=== PATIENT | male | born 1950 | race Caucasian/White ===

== ENCOUNTER 2023-06-25 12:27 | Outpatient (AMB) | payer MEDICARE, SELFPAY ==
[2023-06-25 15:25] VITALS: BP 230/130; PULSE 95; TEMP 36.7; O2SAT 89
--- NOTE | 2023-06-25 15:25 | MHC.OFFWIV ---
Intake Vital Signs 06/25/23 15:25 Height 5 ft 11 in BP 230/130 H Blood Pressure Location Lt brachial Position Sitting Pulse 95 Pulse Source Pulse Oximeter Temp 98.1 F Temp Source Oral Pulse Oximetry (%) 89 L Oxygen Delivery Method Room Air Intake Visit Reasons: EST/congestion([phone]) Intake Note: pt is here for c.o cough, congestion, sinus, headache Patient Tobacco Use Status: Never used Tobacco Allergies No Known Allergies Allergy (Verified 06/25/23 16:18) Medication List - Last Reconciled 06/25/23 by Dima Singh MD albuterol sulfate 90 mcg/actuation inhalation Do you need a note to return to daycare/school/sports/work: No HPI EST/congestion([phone]) HPI Details 73-year-old male presents to the office for a sick visit. Patient is presenting to the office with history of shortness of breath and nonproductive cough. cough symptom has been present for the past 4 weeks. However his shortness of breath has worsened in the last 3 days. Walking from the car to the examining room made a very short of breath. Patient is a 2 pack smoker and quit 4 weeks ago. PFSH Social History Patient Tobacco Use Status: Never used Tobacco Physical Exam Vital Signs: Last Vital Signs Temp 98.1 F 06/25/23 15:25 Pulse 95 06/25/23 15:25 BP 230/130 H 06/25/23 15:25 Pulse Ox 89 L 06/25/23 15:25 Oxygen Delivery Method Room Air 06/25/23 15:25 Const General: cooperative and healthy appearing Nutritional Appearance: well nourished Orientation/consciousness: patient oriented x3 Limitations: no limitations HEENT Head: Yes normal to inspection Eyes General: appearance normal, both eyes and all related structures Neck Neck: Yes normal visual inspection Chest Chest palpation & inspection: normal palpation of entire chest wall Resp Other: Diminished breath sounds at the base. Effort & Inspection: normal respiratory effort Cardio Jugular venous distension: no JVD Palpation: normal PMI Rate: tachycardic Rhythm: regular rhythm Heart sounds: S1 normal heart sound present and S2 normal heart sound present Neuro General: patient oriented x3 Office Procedures EKG Details: Junctional tachycardia. 42404-[id number], Complete Assessment & Plan Assessment & Plan (1) Shortness of breath: Code(s): R06.02 - Shortness of breath Plan: Blood pressure on arrival was 230/130. After patient was given 2 L of oxygen per minute his blood pressure came down to 200 over 100. EKG shows junctional tachycardia with no prior EKG to compare. Chest x-ray shows a large infiltrate on the right lung. Pulse ox without 89% at room air. Patient was advised to proceed to the emergency room via ambulance. Initially he refused. Subsequently, he agreed and patient was sent to the emergency room. Triage nurse notified. Orders: Orders AMB EKG-In Office Today R07.9 - Chest pain, unspecified XR chest 2V Today R05.9 - Cough, unspecified Coding Level of Care Code Est Pt Level 4 (75222) Diagnoses Shortness of breath R06.02 CPT Codes EKG - CPT: 39700-[id number], Complete ([id number])
== END 2023-06-25 16:30 | disposition home or self-care (01) ==
PROVIDERS: Visit Provider Internal Medicine
DX: R06.02 Shortness of breath (principal)
CPT/HCPCS: 93000; 99214

== ENCOUNTER 2023-06-25 15:47 | Outpatient (REF) | payer MEDICARE, SELFPAY ==
--- NOTE | ~2023-06-25 | XR_ITS ---
EXAMINATION: XR CHEST CLINICAL INFORMATION: Cough. COMPARISON: None available. TECHNIQUE: 2 views of the chest were obtained. FINDINGS: Lungs are mildly hyperexpanded. The bronchial malave appear to be diffusely thickened. There are small ill-defined nodular opacities in the right lung as well as patchy airspace opacity in the posterolateral right lower lobe. Findings could represent bronchiolitis and pneumonia. A few subpleural septal lines are present in the periphery of the right lower lobe. There appears to be a very small metallic density within the inferior lingula. On the frontal view, the lateral costophrenic sulcus is slightly blunted, although no pleural effusion is seen on the lateral view. Cardiac silhouette is normal in size. The hilar contours are normal. No acute osseous abnormality. Skeletal hyperostosis with presence of bulky flowing anterior ligament ossification of the thoracic spine. XR/XR chest 2V IMPRESSION: Abnormal chest radiograph. Findings could represent bronchitis, bronchiolitis and right lower lobe pneumonia.
== END 2023-06-25 15:48 | disposition home or self-care (01) ==
LOC: HO.HMGCX 15:47
PROVIDERS: Visit Provider Internal Medicine
DX: R05.9 Cough, unspecified (principal)
CPT/HCPCS: 71046

== ENCOUNTER 2023-06-25 16:56 | Inpatient (IN) | payer MEDICARE, SELFPAY ==
--- NOTE | ~2023-06-25 | XR_ITS ---
EXAMINATION: XR CHEST CLINICAL INFORMATION: Shortness of breath COMPARISON: Chest radiograph earlier today at 4:10 PM and chest radiograph 12/29/2007 (report only) TECHNIQUE: Frontal view of the chest was obtained. FINDINGS: Lungs are hyperinflated consistent with COPD. Again seen are increased reticular nodular markings throughout the lungs. Focal infiltrate is present at the right lung base similar to prior. I suspect there may be a small right subpulmonic effusion as the configuration of the diaphragm has changed with its apex slightly more lateral. XR/XR chest 1V IMPRESSION: COPD with diffuse reticular nodular markings. Right lower lobe infiltrate. Question of small right subpulmonic effusion. Increased lung markings could represent atypical appearance of CHF with underlying COPD. Please correlate clinically.
--- NOTE | 2023-06-25 17:15 | ECG_ITS ---
Test Reason : CHEST PAIN Blood Pressure : / mmHG Vent. Rate : 098 BPM Atrial Rate : 098 BPM P-R Int : 154 ms QRS Dur : 080 ms QT Int : 344 ms P-R-T Axes : 088 067 082 degrees QTc Int : 439 ms Normal sinus rhythm Septal infarct , age undetermined Abnormal ECG No previous ECGs available Referred By: Ashleigh Bonner Electronically Signed By:Neville Keyes
--- NOTE | 2023-06-25 17:18 | ED.SOB ---
HPI - SOB/Dyspnea General Chief Complaint: Upper Respiratory Symptoms Stated Complaint: Breathing problems, hypertensive,expiratory wheeze History of Present Illness HPI Narrative: Patient is 73 years old with a long history of smoking. Baseline not on oxygen. Have not seen a doctor in the last 10 years. EMS noted patient to have a very high blood pressure of 240/140. Also having coughing congestion upper respiratory symptoms O2 sat in the 80s. Was given some nitroglycerin patient's blood pressure improved given a neb treatment with moderate results. Patient is sent in for further evaluation he is vaccinated for COVID x3 did not get his flu shot this year. Patient is from home. The symptoms been ongoing for the last few months. Getting much worse today. To a point that he cannot work as why he came in. Related Data Home Medications Medication Instructions Recorded Confirmed albuterol sulfate 90 mcg/actuation inhalation 06/25/23 06/25/23 aerosol inhaler Allergies Allergy/AdvReac Type Severity Reaction Status Date / Time No Known Allergies Allergy Verified 06/25/23 16:18 Review of Systems Review of Systems: Positive coughing congestion upper respiratory symptoms positive shortness of breath Yes all other systems are reviewed and are negative [facility] Past Medical History Attestation statement: The following information was validated with the patient. Source: unable to obtain Onset Date is defined in the Problem List Problems that require an onset date and time if occurred within 24 hrs of arrival to the ED Aortic Dissection and Rupture; Neurologic impairment; Cardiopulmonary Arrest; Endotracheal Intubation; Insertion or Replacement of Mechanical Circulatory Assist Device Social History Social History Patient Tobacco Use Status: Never used Tobacco Advance Directives: No Advance Directives Information Provided: No Physical Exam Vital Signs: Vital Signs: Last Vital Signs Temp 97.8 F 06/25/23 17:20 Pulse 91 06/25/23 19:28 Resp 24 H 06/25/23 19:28 BP 151/88 H 06/25/23 19:28 Pulse Ox 95 06/25/23 19:28 O2 Del Method Nasal Cannula 06/25/23 19:28 O2 Flow Rate 4 06/25/23 19:28 BMI result Body Mass Index 24.3 Appearance: Alert. Oriented X3. No acute distress. Eyes: Pupils equal, round and reactive to light. ENT: Pharynx normal. Neck: Normal inspection. Neck supple. No lymph nodes noted. No crepitus CVS: Normal heart rate and rhythm. Pulses normal. Normal S1 and S2 Respiratory: Diminished breath sounds bilaterally Abdomen: Soft and nontender. No rigidity. No distention. good BS x4 Skin: Skin warm and dry. Normal skin color. Normal skin turgor. Extremities: No lower extremity edema. Neurovascular intact to all extremities. No Lacerations. No Rash Neuro: Oriented X 3. No motor deficit. No sensory deficit. Moving all extermities. No slurred speech Medications Administered Discontinued Medications Generic Name Dose Route Start Last Admin Trade Name Freq PRN Reason Stop Dose Admin Albuterol Sulfate 5 mg/ 7.5 mg 06/25/23 17:42 06/25/23 17:43 Albuterol Sulfate 2.5 mg INHALE 06/25/23 17:43 Not Given ONCE ONE Albuterol Sulfate 12 puff 06/25/23 17:44 06/25/23 17:45 Albuterol Sulfate 90 Mcg 8 Gm Inhaler INHALE 06/25/23 17:45 12 puff ONCE ONE Administration Amlodipine Besylate 5 mg 06/25/23 17:30 06/25/23 18:51 Amlodipine Besylate 5 Mg Tablet PO 06/25/23 17:31 5 mg ONCE ONE Administration Protocol Methylprednisolone Sodium Succinate 125 mg 06/25/23 17:14 06/25/23 18:51 Methylprednisolone Sod Succ 125 Mg/2 Ml Vial IVPUSH 06/25/23 17:15 125 mg ONCE ONE Administration Medical Decision Making Medical Decision Making MDM Narrative: Positive coughing congestion upper respiratory symptoms that is been ongoing for weeks but much worse in the last 24 hours. Patient denies any chest pain. My interpretation of patient's chest x-ray showed a right lower lobe infiltrate. Patient's lactate is normal. There is no evidence for severe sepsis. He does have hypoxia along with having an elevated blood pressure on arrival. A small dose of amlodipine was given. Patient given nebulized treatment along with steroids for likely COPD exacerbation. Patient to be admitted for further evaluation. Given multiple albuterol treatment here Differential Diagnosis Differential Diagnoses: The differential diagnosis associated with the presentation includes Pneumonia, flu, RSV, COVID, COPD, hypertension Admission/Observation Consideration of admission/observation: Escalation of care including admission/observation considered Patient will need to be admitted for hypoxia associated with COPD exacerbation pneumonia Consult Healthcare Provider Management of the patient was discussed with: Hospitalist Lab Data MDM Lab Attestation statement: I reviewed the patient's lab results. 06/25/23 18:36 06/25/23 18:36 Labs: Lab Results 06/25/23 Range/Units 18:36 WBC 12.9 H (4.8-10.8) X10*3/uL RBC 4.04 L (4.60-5.80) X10*6/uL Hgb 11.9 L (14.0-18.0) g/dl Hct 35.6 L (42.0-52.0) % MCV 88.1 (80.0-98.0) fL MCH 29.5 (27.0-33.0) pg MCHC 33.4 (31.0-36.0) g/dl RDW 12.7 (11.0-16.0) % Plt Count 422 H (160-400) X10*3/uL MPV 9.2 L (9.4-12.4) fL Immature Gran % (Auto) 0.7 H (0.0-0.4) % Neut % (Auto) 81.3 H (45-73) % Lymph % (Auto) 7.8 L (20-40) % [place] % (Auto) 9.5 (2-11) % Eos % (Auto) 0.2 (0-4) % Baso % (Auto) 0.5 (0-2) % Lymph # (Auto) 1.0 L (1.2-4.9) X10*3/uL [place] # (Auto) 1.2 (0.1-1.2) X10*3/uL Eos # (Auto) 0.0 (0.0-0.4) X10*3/uL Baso # (Auto) 0.1 (0.0-0.2) X10*3/uL Abs Immat Gran (auto) 0.09 H (0.00-0.03) X10*3/uL Absolute Neuts (auto) 10.5 H (2.0-8.3) x10*3/uL Absolute Nucleated RBC 0.000 (0.0-0.012) X10*3/uL Nucleated RBC % (auto) 0.0 (0.0-0.2) /100WBC Sodium 143 (135-145) mmol/L Potassium 3.1 L (3.3-5.1) mmol/L Chloride 100 (96-108) mmol/L Carbon Dioxide 32 H (22-29) mmol/L Anion Gap 14 (12-20) BUN 7 L (9-16) mg/dL Creatinine 0.68 (0.5-1.4) mg/dL Estim Creat Clear Calc 96.3 Estimated GFR > 60 Random Glucose 126 H (60-115) mg/dL Lactic Acid 1.7 (0.5-2.0) mmol/L Calcium 9.4 (8.4-10.2) mg/dL Troponin I High Sens 8.0 (<3.5-35.0) ng/L B-Natriuretic Peptide 64 (<100) pg/mL Influenza Type A (PCR) NEGATIVE (Negative) Influenza Type B (PCR) NEGATIVE (Negative) RSV RNA Qual (PCR) NEGATIVE (Negative) SARS-CoV-2 RNA (RT-PCR) NEGATIVE (Negative) Independent Interpretation I performed an independent interpretation of an: EKG (My interpretation of patient's EKG showed a sinus rhythm heart rate is 100 [place] QRS QTC within normal limits is no acute ST segment elevation) Independent Historian Clinical information obtained from an independent historian. History obtained from or confirmed by: EMS Tests considered The following testing was considered but not selected: No need for CTA there is an obvious reason for patient's hypoxia. [place] the risk of PE is low Chronic Conditions COPD, hypertension Social Determinants Long history of smoking Critical Care Time Critical Care Time Critical Care Time: Yes Total Critical Care Time: 40 Attestation: I have personally provided 40 minutes of critical care time exclusive of time spent on separately billable procedures. Time includes review of lab data, radiology results, discussion with consultants, and monitoring for potential decompensation. Interventions were performed as documented above Discharge Plan Discharge Clinical Impression: Pneumonia, COPD (chronic obstructive pulmonary disease) Prescriptions: No Action albuterol sulfate 90 mcg/actuation HFA aerosol inhaler inhalation
[2023-06-25 17:20] VITALS: BP 217/110; PULSE 90; RESP 18; TEMP 36.6; O2SAT 96
[2023-06-25 17:45] VITALS: BP 230/130; PULSE 92; PULSE 99; RESP 16; O2SAT 82; O2SAT 93; BMI 24.3
[2023-06-25] MEDS: Albuterol Sulfate 90 MCG 8 GM INHALER 12 PUFF INHALE (17:45)
[2023-06-25 18:37] LABS: MANUAL DIFF FLAG NO
[2023-06-25 18:39] LABS: Basophils Absolute Auto 0.1 X10*3/uL (0.0-0.2); Basophils Percent Auto 0.5 % (0-2); Eosinophils Percent Auto 0.2 % (0-4); Hematocrit 35.6 % (42.0-52.0); Hemoglobin 11.9 g/dl (14.0-18.0); Imm Gran Abs Auto 0.09 X10*3/uL (0.00-0.03); Imm Gran Pct Auto 0.7 % (0.0-0.4); Lymphocytes Percent Auto 7.8 % (20-40); Mean Corpuscular HGB Conc 33.4 g/dl (31.0-36.0); Mean Corpuscular Hemoglobin 29.5 pg (27.0-33.0); Mean Corpuscular Volume 88.1 fL (80.0-98.0); Mean Platelet Volume 9.2 fL (9.4-12.4); Monocytes Absolute Auto 1.2 X10*3/uL (0.1-1.2); Monocytes Percent Auto 9.5 % (2-11); Neutrophils Absolute Auto 10.5 x10*3/uL (2.0-8.3); Neutrophils Percent Auto 81.3 % (45-73); Platelet Count 422 X10*3/uL (160-400); Red Blood Count 4.04 X10*6/uL (4.60-5.80); Red Cell Distribution Width 12.7 % (11.0-16.0); White Blood Count 12.9 X10*3/uL (4.8-10.8)
[2023-06-25 18:48] LABS: Lactic Acid 1.7 mmol/L (0.5-2.0)
[2023-06-25 18:51] LABS: Anion Gap 14 (12-20); Blood Urea Nitrogen 7 mg/dL (9-16); Calcium 9.4 mg/dL (8.4-10.2); Carbon Dioxide 32 mmol/L (22-29); Chloride 100 mmol/L (96-108); Creatinine Clr Calc Pharmacy 96.3; Estimated Glomerular Filt Rate > 60; Glucose Random 126 mg/dL (60-115); Potassium 3.1 mmol/L (3.3-5.1); Sodium 143 mmol/L (135-145)
[2023-06-25] MEDS: amLODIPine Besylate 5 MG TABLET PO (18:51)
[2023-06-25] MEDS: methylPREDNISolone Sod Succ 125 MG/2 ML VIAL IVPUSH (18:51)
[2023-06-25 18:56] VITALS: BP 175/96; PULSE 96; RESP 20
[2023-06-25 18:58] LABS: B Type Natriuretic Peptide 64 pg/mL (<100)
[2023-06-25 19:28] VITALS: BP 151/88; PULSE 91; RESP 24; O2SAT 95
[2023-06-25 19:28] LABS: Influenza A PCR NEGATIVE (Negative); Influenza B PCR NEGATIVE (Negative); Resp Syncy Virus RNA Qual PCR NEGATIVE (Negative); SARS COV2 PCR INHOUSE NEGATIVE (Negative)
--- NOTE | 2023-06-25 19:42 | PM.IMHP ---
History of Present Illness Date of Service: 06/25/23 Chief Complaint: Dyspnea This is a 73-year-old male with pertinent history of essential hypertension, COPD not on home oxygen who presents to the emergency department for evaluation of dyspnea and cough. Patient states he has been having generalized body ache and flu-like symptoms for the last 4 weeks. Initially patient was having nonproductive cough but on the day of presentation, he started having productive cough. Also had associated wheezing and dyspnea which was worse with ambulation. No fevers or chills. Patient states that he has not seen a doctor in 10 years. He has quit smoking tobacco and only uses an inhaler as needed for COPD. No chest discomfort, palpitations, headache, fever, chills, orthopnea, PND, abdominal pain, changes in urinary or bowel habits. His blood pressure was found to be elevated upon EMS arrival and was given nitroglycerin. In the emergency department, patient requiring supplemental oxygen and imaging concerning for right-sided infiltrate. Review of Systems Constitutional: Constitutional: Reports fatigue, Reports lethargy and Reports weakness Cardiovascular: Cardiovascular: Reports dyspnea on exertion Respiratory: Respiratory: Reports cough, Reports dyspnea on exertion and Reports wheezing Gastrointestinal: Gastrointestinal: Reports no additional gastrointestinal complaints Genitourinary: Genitourinary: Reports no additional male genitourinary complaints Neurologic: Reports weakness Endocrine: Endocrine: Reports fatigue Allergic/Immunologic: Allergic/Immunologic: Reports wheezing [facility] Medical History Former tobacco use COPD (chronic obstructive pulmonary disease) Essential hypertension Pertinent family history: No family history of early CAD Social History Patient Tobacco Use Status: Never used Tobacco Advance Directives: No Advance Directives Information Provided: No Meds Allergies Allergy/AdvReac Type Severity Reaction Status Date / Time No Known Allergies Allergy Verified 06/25/23 16:18 Active Medications: Current Medications Acetaminophen (Acetaminophen 325 Mg Tablet) 650 mg PO Q6H PRN PRN Reason: Pain, Mild (Pain Scale 1-3) Enoxaparin Sodium (Enoxaparin Sodium 40 Mg/0.4 Ml Syringe) 40 mg SUBCUT Q24H HOME Ceftriaxone Sodium 1 gm/ (Sodium Chloride) 50 mls @ 100 mls/hr IV ONCE ONE Stop: 06/25/23 20:01 Melatonin (Melatonin 3 Mg Tablet) 6 mg PO BEDTIME PRN PRN Reason: Insomnia Ondansetron HCl (Ondansetron Hcl 4 Mg/2 Ml Vial) 4 mg IVPUSH Q8H PRN PRN Reason: Nausea and Vomiting Sodium Chloride (0.9 % Sodium Chloride Flush 3 Ml Syringe) 3 ml IVFLUSH QSHIFT [facility] Home Medications Medication Instructions Recorded Confirmed Last Taken Type albuterol sulfate 90 mcg/actuation 2 puff inhalation Q4H 06/25/23 06/25/23 Unknown History aerosol inhaler ascorbic acid (vitamin C) 500 mg 500 mg PO DAILY 06/25/23 06/25/23 Unknown History tablet aspirin 81 mg chewable tablet 81 mg PO DAILY 06/25/23 06/25/23 Unknown History Physical Exam Vital Signs and Narrative: Vital Signs: Last Vital Signs Temp 97.8 F 06/25/23 17:20 Pulse 91 06/25/23 19:28 Resp 24 H 06/25/23 19:28 BP 151/88 H 06/25/23 19:28 Pulse Ox 95 06/25/23 19:28 O2 Del Method Nasal Cannula 06/25/23 19:28 O2 Flow Rate 4 06/25/23 19:28 BMI result Body Mass Index 24.3 Middle-aged male lying in bed in mild distress on supplemental oxygen Neck supple, no JVD Regular rate and rhythm, S1-S2 heard Bilateral wheezing present Abdomen soft nontender, no guarding, no rigidity Patient is awake, alert and oriented to self, place, time and person ; no focal motor deficit Psych: Normal mood No pedal edema Results Labs 06/25/23 18:36 06/25/23 18:36 Labs: Laboratory Results - last 24 hr 06/25/23 18:36 MCV 88.1 MCH 29.5 MCHC 33.4 RDW 12.7 Plt Count 422 H MPV 9.2 L Immature Gran % (Auto) 0.7 H Neut % (Auto) 81.3 H Lymph % (Auto) 7.8 L [place] % (Auto) 9.5 Eos % (Auto) 0.2 Baso % (Auto) 0.5 Lymph # (Auto) 1.0 L [place] # (Auto) 1.2 Eos # (Auto) 0.0 Baso # (Auto) 0.1 Abs Immat Gran (auto) 0.09 H Absolute Neuts (auto) 10.5 H Absolute Nucleated RBC 0.000 Nucleated RBC % (auto) 0.0 Anion Gap 14 Estim Creat Clear Calc 96.3 Estimated GFR > 60 Random Glucose 126 H Lactic Acid 1.7 Calcium 9.4 B-Natriuretic Peptide 64 Influenza Type A (PCR) NEGATIVE Influenza Type B (PCR) NEGATIVE RSV RNA Qual (PCR) NEGATIVE SARS-CoV-2 RNA (RT-PCR) NEGATIVE Assessment and Plan (1) Acute hypoxemic respiratory failure: Status: Acute Plan This is a 73-year-old male with pertinent history of essential hypertension, COPD not on home oxygen who presents to the emergency department for evaluation of dyspnea and cough. #. Acute hypoxemic respiratory failure due to COPD exacerbation in a patient with right-sided pneumonia. Will admit patient with supplemental oxygen. Initiating empiric IV antibiotics. Initiating systemic steroids. Scheduled and p.r.n. DuoNebs. Maintain oxygen saturation and wean as tolerated. Sputum culture pending #. Sepsis in the setting of above: Resuscitated with IV crystalloids. Lactic acid and blood culture obtained #. Hypertensive emergency/urgency: Initiating p.o. antihypertensives. Blood pressure appropriately lowered in the ER. Optimize prior to discharge. #. Hypokalemia: Repleted DVT prophylaxis: Lovenox Full code Admit as inpatient and will require two night minimum hospital stay for supplemental oxygen, IV antibiotics (as above), which is not possible in a lesser acute setting. Quality Stroke Does the patient have a stroke diagnosis?: No VTE Prior VTE?: No VTE Risk Level:: Medical - moderate - high VTE Device Contraindication: Treatment Not Indicated VTE Drug Contraindication: N/A - Med Ordered
--- NOTE | 2023-06-25 19:51 | PHA.MEDREC ---
Pharmacy Consult ? Medication Reconciliation Pharmacy has completed the medication reconciliation. Patient reported medications. Mary Bueno, KaitD
[2023-06-25] MEDS: Azithromycin 500 MG TABLET PO (20:04)
[2023-06-25] MEDS: Potassium Chloride Packet 20 MEQ PACKET 40 MEQ PO (20:04)
[2023-06-25] MEDS: cefTRIAXone sodium 1 GM in 0.9 % Sodium Chloride 50 ML IV (20:05)
[2023-06-25] MEDS: Enoxaparin Sodium 40 MG/0.4 ML SYRINGE SUBCUT (20:05)
[2023-06-25 23:55] VITALS: BP 168/90; PULSE 88; RESP 16; O2SAT 98
[2023-06-26] VITALS (10 sets, daily range): BP systolic 139–183; BP diastolic 58–100; PULSE 70–85; RESP 16–20; TEMP 35.9–37; O2SAT 94–98; BMI 24.6
[2023-06-26] MEDS: 0.9 % Sodium Chloride Flush 3 ML SYRINGE IVFLUSH ×4 (00:02→19:51)
[2023-06-26] MEDS: Acetaminophen 325 MG TABLET 650 MG PO (00:02)
[2023-06-26] MEDS: Melatonin 3 MG TABLET 6 MG PO (00:03)
--- NOTE | 2023-06-26 00:04 | PC.NURSE ---
Pt with complaints of a mild headache. Pt medicated per AUG with tylenol. Also states he cannot sleep at this time. Medicated per AUG with melatonin.
[2023-06-26 00:08] LABS: Appearance Urine Clear; Color Urine Yellow; Glucose Urine UA Negative (Negative); Leukocyte Esterase Urine Negative (Negative); Nitrite Urine Negative (Negative); PH 7.5 (5.0-9.0); UMIC TRIGGER UACC YES; Urine Blood Negative (Negative); Urine Ketones Trace mg/dL (Negative); Urine Protein 30 (1+) mg/dL (Neg-Trace)
[2023-06-26 00:13] LABS: Bacteria Urine None Seen (None Seen); Hyaline Casts Urine 0-2 /LPF (0-2); RBC Urine 0-2 /HPF (0-2); Squamous Epithelial Cell Urine 0-2 /HPF (0-2); WBC Urine 0-5 /HPF (0-5)
[2023-06-26 06:45] LABS: Basophils Percent Auto 0.4 % (0-2); Hematocrit 36.9 % (42.0-52.0); Hemoglobin 12.4 g/dl (14.0-18.0); Imm Gran Abs Auto 0.07 X10*3/uL (0.00-0.03); Imm Gran Pct Auto 0.6 % (0.0-0.4); Lymphocytes Absolute Auto 0.6 X10*3/uL (1.2-4.9); MANUAL DIFF FLAG SCAN; Mean Corpuscular HGB Conc 33.6 g/dl (31.0-36.0); Mean Corpuscular Hemoglobin 29.8 pg (27.0-33.0); Mean Corpuscular Volume 88.7 fL (80.0-98.0); Mean Platelet Volume 9.5 fL (9.4-12.4); Monocytes Absolute Auto 0.2 X10*3/uL (0.1-1.2); Monocytes Percent Auto 1.6 % (2-11); Neutrophils Absolute Auto 10.2 x10*3/uL (2.0-8.3); Neutrophils Percent Auto 92.4 % (45-73); Platelet Count 438 X10*3/uL (160-400); Red Blood Count 4.16 X10*6/uL (4.60-5.80); Red Cell Distribution Width 12.6 % (11.0-16.0); SCAN SMEAR FLAG 1; White Blood Count 11.1 X10*3/uL (4.8-10.8)
[2023-06-26 06:58] LABS: Anion Gap 12 (12-20); Blood Urea Nitrogen 10 mg/dL (9-16); Calcium 9.3 mg/dL (8.4-10.2); Carbon Dioxide 32 mmol/L (22-29); Chloride 101 mmol/L (96-108); Creatinine Clr Calc Pharmacy 93.6; Estimated Glomerular Filt Rate > 60; Glucose Random 147 mg/dL (60-115); Potassium 3.7 mmol/L (3.3-5.1); Sodium 141 mmol/L (135-145)
[2023-06-26] MEDS: lisinopriL 5 MG TABLET PO (07:36)
[2023-06-26] MEDS: Aspirin 81 MG TAB.CHEW PO (07:36)
[2023-06-26] MEDS: Ascorbic Acid 500 MG TABLET PO (07:36)
[2023-06-26] MEDS: amLODIPine Besylate 5 MG TABLET PO (07:36)
[2023-06-26 08:13] LABS: SLIDE REVIEW VERIFIED
[2023-06-26] MEDS: Albuterol/Iprat 2.5/0.5MG 3 ML AMPUL.NEB INHALE ×3 (08:25→19:27)
[2023-06-26] MEDS: methylPREDNISolone Sod Succ 40 MG/ML VIAL IVPUSH (08:27)
--- NOTE | 2023-06-26 10:09 | HO.PM.IMPN ---
Subjective Subjective Date of Service: 06/26/23 Interval History: sob still present but improved Physical Exam Vital Signs: Vital Signs: Last Vital Signs Temp 97.6 F 06/26/23 07:46 Pulse 74 06/26/23 08:26 Resp 18 06/26/23 08:26 BP 180/100 H 06/26/23 07:46 Pulse Ox 95 06/26/23 07:46 O2 Del Method Nasal Cannula 06/26/23 07:46 O2 Flow Rate 2 06/26/23 07:46 BMI result Body Mass Index 24.6 General: AO X 3, no acute distress Resp: wheezing bilateral, no accessory muscles used CVS: S1,S2,RRR GI: soft, non tender, non distended Neuro: motor grossly intact, alert Psych: appropriate affect, appropriate insight Objective Data Active Medications Acetaminophen (Acetaminophen 325 Mg Tablet) 650 mg PO Q6H PRN PRN Reason: Pain, Mild (Pain Scale 1-3) Last Admin: 06/26/23 00:02 Dose: 650 mg Documented By: MARY Albuterol/Ipratropium (Albuterol/Iprat 2.5/0.5mg 3 Ml Ampul.Neb) 3 ml INHALE RQ4H WHILE AWAKE [facility] Last Admin: 06/26/23 08:25 Dose: 3 ml Documented By: BRUCE Albuterol/Ipratropium (Albuterol/Iprat 2.5/0.5mg 3 Ml Ampul.Neb) 3 ml INHALE Q4H PRN PRN Reason: Wheezing Amlodipine Besylate (Amlodipine Besylate 5 Mg Tablet) 5 mg PO DAILY [facility]; Protocol Last Admin: 06/26/23 07:36 Dose: 5 mg Documented By: FRANNY Ascorbic Acid (Ascorbic Acid 500 Mg Tablet) 500 mg PO DAILY [facility] Last Admin: 06/26/23 07:36 Dose: 500 mg Documented By: FRANNY Aspirin (Aspirin 81 Mg Tab.Chew) 81 mg PO DAILY [facility] Last Admin: 06/26/23 07:36 Dose: 81 mg Documented By: FRANNY Enoxaparin Sodium (Enoxaparin Sodium 40 Mg/0.4 Ml Syringe) 40 mg SUBCUT Q24H [facility] Last Admin: 06/25/23 20:05 Dose: 40 mg Documented By: MARY Ceftriaxone Sodium 1 gm/ (Sodium Chloride) 50 mls @ 100 mls/hr IV Q24H [facility] Azithromycin 500 mg/ Sodium (Chloride) 250 mls @ 125 mls/hr IV Q24H [facility] Lisinopril (Lisinopril 5 Mg Tablet) 5 mg PO DAILY [facility]; Protocol Last Admin: 06/26/23 07:36 Dose: 5 mg Documented By: FRANNY Melatonin (Melatonin 3 Mg Tablet) 6 mg PO BEDTIME PRN PRN Reason: Insomnia Last Admin: 06/26/23 00:03 Dose: 6 mg Documented By: MARY Methylprednisolone Sodium Succinate (Methylprednisolone Sod Succ 40 Mg/Ml Vial) 40 mg IVPUSH Q12H [facility] Last Admin: 06/26/23 08:27 Dose: 40 mg Documented By: FRANNY Ondansetron HCl (Ondansetron Hcl 4 Mg/2 Ml Vial) 4 mg IVPUSH Q8H PRN PRN Reason: Nausea and Vomiting Sodium Chloride (0.9 % Sodium Chloride Flush 3 Ml Syringe) 3 ml IVFLUSH QSHIFT [facility] Last Admin: 06/26/23 08:27 Dose: 3 ml Documented By: FRANNY Labs 06/26/23 05:59 06/26/23 05:59 Labs: Laboratory Results - last 24 hr 06/25/23 06/25/23 06/26/23 18:36 23:57 05:59 MCV 88.1 88.7 MCH 29.5 29.8 MCHC 33.4 33.6 RDW 12.7 12.6 Plt Count 422 H 438 H MPV 9.2 L 9.5 Immature Gran % (Auto) 0.7 H 0.6 H Neut % (Auto) 81.3 H 92.4 H Lymph % (Auto) 7.8 L 5.0 L Barry % (Auto) 9.5 1.6 L Eos % (Auto) 0.2 0.0 Baso % (Auto) 0.5 0.4 Lymph # (Auto) 1.0 L 0.6 L Barry # (Auto) 1.2 0.2 Eos # (Auto) 0.0 0.0 Baso # (Auto) 0.1 0.0 Abs Immat Gran (auto) 0.09 H 0.07 H Absolute Neuts (auto) 10.5 H 10.2 H Absolute Nucleated RBC 0.000 0.000 Nucleated RBC % (auto) 0.0 0.0 Smear Tech's Comments VERIFIED Anion Gap 14 12 Estim Creat Clear Calc 96.3 93.6 Estimated GFR > 60 > 60 Random Glucose 126 H 147 H Lactic Acid 1.7 Calcium 9.4 9.3 B-Natriuretic Peptide 64 Urine Color Yellow Urine Appearance Clear Urine pH 7.5 Ur Specific Luana 1.010 Urine Protein 30 (1+) H Urine Glucose (UA) Negative Urine Ketones Trace Urine Blood Negative Urine Nitrite Negative Ur Leukocyte Esterase Negative Urine RBC 0-2 Urine WBC 0-5 Ur Squamous Epith Cells 0-2 Urine Bacteria None Seen Hyaline Casts 0-2 Influenza Type A (PCR) NEGATIVE Influenza Type B (PCR) NEGATIVE RSV RNA Qual (PCR) NEGATIVE SARS-CoV-2 RNA (RT-PCR) NEGATIVE Assessment and Plan (1) Acute hypoxemic respiratory failure: Status: Acute Plan 73M PMH htn, copd, presented wtih sob sepsis, acute hypoxic repsiratory failure due to copd with acute decompensation and pneumonia rocpehin, azithro steroids, nebs wean o2 as tolerated htn amldoipnie and lisinopril dvt prophylaxis - lovenox full code reason for continued hospitalization:sob, wheezing Quality Stroke Does the patient have a stroke diagnosis?: No VTE Prior VTE?: No VTE Risk Level:: Medical - moderate - high VTE Device Contraindication: Treatment Not Indicated VTE Drug Contraindication: N/A - Med Ordered
--- NOTE | 2023-06-26 10:56 | MHC.CM.PN ---
IMM DELIVERED PT LIVES ALONE AND IS EMPLOYED P/T. INDEPEND[employer] AT [employer]. NO HCP BUT WILL CONSIDER DOING IT. NO PCP [facility] PROVIDED. DP: HOME WITH NO SERVICES ANTICIPATED. PT MAY NEED SHUTTLE OR LYFT RIDE HOME. CM WILL CONTINUE TO FOLLOW FOR ANY CHANGE IN DC PLAN/NEEDS.
[2023-06-26] MEDS: cefTRIAXone sodium 1 GM in 0.9 % Sodium Chloride 50 ML IV (19:51)
[2023-06-27] VITALS (9 sets, daily range): BP systolic 121–159; BP diastolic 78–89; PULSE 67–85; RESP 16–18; TEMP 36.1–36.6; O2SAT 88–98
[2023-06-27 06:23] LABS: Hematocrit 35.7 % (42.0-52.0); Mean Corpuscular HGB Conc 33.6 g/dl (31.0-36.0); Mean Corpuscular Hemoglobin 29.8 pg (27.0-33.0); Mean Corpuscular Volume 88.6 fL (80.0-98.0); Mean Platelet Volume 9.3 fL (9.4-12.4); Platelet Count 472 X10*3/uL (160-400); Red Blood Count 4.03 X10*6/uL (4.60-5.80); Red Cell Distribution Width 12.6 % (11.0-16.0); White Blood Count 15.5 X10*3/uL (4.8-10.8)
[2023-06-27 06:24] LABS: Anion Gap 15 (12-20); Blood Urea Nitrogen 23 mg/dL (9-16); Calcium 9.3 mg/dL (8.4-10.2); Carbon Dioxide 33 mmol/L (22-29); Chloride 102 mmol/L (96-108); Creatinine Clr Calc Pharmacy 88.5; Estimated Glomerular Filt Rate > 60; Glucose Fasting 153 mg/dL (60-99); Potassium 3.8 mmol/L (3.3-5.1); Sodium 146 mmol/L (135-145)
--- NOTE | 2023-06-27 08:51 | HO.PM.IMPN ---
Subjective Subjective Date of Service: 06/27/23 Interval History: sob improved Physical Exam Vital Signs: Vital Signs: Last Vital Signs Temp 97.2 F 06/27/23 07:17 Pulse 67 06/27/23 07:47 Resp 16 06/27/23 07:47 BP 121/89 06/27/23 07:17 Pulse Ox 96 06/27/23 07:17 O2 Del Method Nasal Cannula 06/27/23 07:17 O2 Flow Rate 1 06/27/23 07:17 BMI result Body Mass Index 24.6 General: AO X 3, no acute distress Resp: wheezing bilateral, no accessory muscles used CVS: S1,S2,RRR GI: soft, non tender, non distended Neuro: motor grossly intact, alert Psych: appropriate affect, appropriate insight Objective Data Active Medications Acetaminophen (Acetaminophen 325 Mg Tablet) 650 mg PO Q6H PRN PRN Reason: Pain, Mild (Pain Scale 1-3) Last Admin: 06/26/23 00:02 Dose: 650 mg Documented By: MARY Albuterol/Ipratropium (Albuterol/Iprat 2.5/0.5mg 3 Ml Ampul.Neb) 3 ml INHALE RQ4H WHILE AWAKE [facility] Last Admin: 06/27/23 07:45 Dose: 3 ml Documented By: SHEELA Albuterol/Ipratropium (Albuterol/Iprat 2.5/0.5mg 3 Ml Ampul.Neb) 3 ml INHALE Q4H PRN PRN Reason: Wheezing Amlodipine Besylate (Amlodipine Besylate 5 Mg Tablet) 5 mg PO DAILY [facility]; Protocol Last Admin: 06/27/23 08:03 Dose: 5 mg Documented By: FRANNY Ascorbic Acid (Ascorbic Acid 500 Mg Tablet) 500 mg PO DAILY [facility] Last Admin: 06/27/23 08:03 Dose: 500 mg Documented By: FRANNY Enoxaparin Sodium (Enoxaparin Sodium 40 Mg/0.4 Ml Syringe) 40 mg SUBCUT Q24H [facility] Last Admin: 06/26/23 20:01 Dose: 40 mg Documented By: IRAM Ceftriaxone Sodium 1 gm/ (Sodium Chloride) 50 mls @ 100 mls/hr IV Q24H [facility] Last Infusion: 06/26/23 20:44 Dose: Infused Documented By: IRAM Azithromycin 500 mg/ Sodium (Chloride) 250 mls @ 125 mls/hr IV Q24H [facility] Last Infusion: 06/26/23 22:58 Dose: Infused Documented By: IRAM Lisinopril (Lisinopril 5 Mg Tablet) 5 mg PO DAILY [facility]; Protocol Last Admin: 06/27/23 08:03 Dose: 5 mg Documented By: FRANNY Melatonin (Melatonin 3 Mg Tablet) 6 mg PO BEDTIME PRN PRN Reason: Insomnia Last Admin: 06/26/23 00:03 Dose: 6 mg Documented By: MARY Methylprednisolone Sodium Succinate (Methylprednisolone Sod Succ 40 Mg/Ml Vial) 40 mg IVPUSH Q12H [facility] Last Admin: 06/27/23 08:03 Dose: 40 mg Documented By: FRANNY Ondansetron HCl (Ondansetron Hcl 4 Mg/2 Ml Vial) 4 mg IVPUSH Q8H PRN PRN Reason: Nausea and Vomiting Sodium Chloride (0.9 % Sodium Chloride Flush 3 Ml Syringe) 3 ml IVFLUSH QSHIFT [facility] Last Admin: 06/27/23 08:03 Dose: 3 ml Documented By: FRANNY Labs 06/27/23 05:00 06/27/23 05:00 Labs: Laboratory Results - last 24 hr 06/27/23 05:00 MCV 88.6 MCH 29.8 MCHC 33.6 RDW 12.6 Plt Count 472 H MPV 9.3 L Absolute Nucleated RBC 0.000 Nucleated RBC % (auto) 0.0 Anion Gap 15 Estim Creat Clear Calc 88.5 Estimated GFR > 60 Fasting Glucose 153 H Calcium 9.3 Microbiology Microbiology Results: Microbiology 06/25/23 18:36 Blood Culture - Preliminary Blood - Venous No growth after 24 hours. 06/25/23 18:36 Blood Culture - Preliminary Blood - Venous No growth after 24 hours. Assessment and Plan (1) Acute hypoxemic respiratory failure: Status: Acute Plan 73M PMH htn, copd, presented wtih sob sepsis, acute hypoxic respiratory failure due to copd with acute decompensation and pneumonia rocpehin, azithro steroids, nebs wean o2 as tolerated htn amldoipnie and lisinopril dvt prophylaxis - lovenox full code reason for continued hospitalization:sob, wheezing Quality Stroke Does the patient have a stroke diagnosis?: No VTE Prior VTE?: No VTE Risk Level:: Medical - moderate - high VTE Device Contraindication: Treatment Not Indicated VTE Drug Contraindication: N/A - Med Ordered
[2023-06-28] VITALS (9 sets, daily range): BP systolic 152–167; BP diastolic 76–88; PULSE 63–97; RESP 16–20; TEMP 36–37.1; O2SAT 90–981
--- NOTE | 2023-06-28 09:56 | HO.PM.IMPN ---
Subjective Subjective Date of Service: 06/28/23 Interval History: sob improved Physical Exam Vital Signs: Vital Signs: Last Vital Signs Temp 98.3 F 06/28/23 07:12 Pulse 63 06/28/23 08:11 Resp 16 06/28/23 08:11 BP 158/88 H 06/28/23 07:12 Pulse Ox 90 L 06/28/23 08:48 O2 Del Method Room Air 06/28/23 08:48 O2 Flow Rate 1 06/28/23 07:12 BMI result Body Mass Index 24.6 mild end exp wheeze Objective Data Active Medications Acetaminophen (Acetaminophen 325 Mg Tablet) 650 mg PO Q6H PRN PRN Reason: Pain, Mild (Pain Scale 1-3) Last Admin: 06/26/23 00:02 Dose: 650 mg Documented By: MARY Albuterol/Ipratropium (Albuterol/Iprat 2.5/0.5mg 3 Ml Ampul.Neb) 3 ml INHALE RQ4H WHILE AWAKE [facility] Last Admin: 06/28/23 08:11 Dose: 3 ml Documented By: SHEELA Albuterol/Ipratropium (Albuterol/Iprat 2.5/0.5mg 3 Ml Ampul.Neb) 3 ml INHALE Q4H PRN PRN Reason: Wheezing Amlodipine Besylate (Amlodipine Besylate 5 Mg Tablet) 5 mg PO DAILY [facility]; Protocol Last Admin: 06/28/23 08:38 Dose: 5 mg Documented By: DAVID Ascorbic Acid (Ascorbic Acid 500 Mg Tablet) 500 mg PO DAILY [facility] Last Admin: 06/28/23 08:38 Dose: 500 mg Documented By: DAVID Enoxaparin Sodium (Enoxaparin Sodium 40 Mg/0.4 Ml Syringe) 40 mg SUBCUT Q24H [facility] Last Admin: 06/27/23 19:37 Dose: 40 mg Documented By: TONI Ceftriaxone Sodium 1 gm/ (Sodium Chloride) 50 mls @ 100 mls/hr IV Q24H [facility] Last Infusion: 06/27/23 20:07 Dose: Infused Documented By: TONI Azithromycin 500 mg/ Sodium (Chloride) 250 mls @ 125 mls/hr IV Q24H [facility] Last Infusion: 06/27/23 22:41 Dose: Infused Documented By: TONI Lisinopril (Lisinopril 5 Mg Tablet) 5 mg PO DAILY [facility]; Protocol Last Admin: 06/28/23 08:38 Dose: 5 mg Documented By: DAVID Melatonin (Melatonin 3 Mg Tablet) 6 mg PO BEDTIME PRN PRN Reason: Insomnia Last Admin: 06/26/23 00:03 Dose: 6 mg Documented By: MARY Methylprednisolone Sodium Succinate (Methylprednisolone Sod Succ 40 Mg/Ml Vial) 40 mg IVPUSH Q12H [facility] Last Admin: 06/28/23 08:38 Dose: 40 mg Documented By: DAVID Ondansetron HCl (Ondansetron Hcl 4 Mg/2 Ml Vial) 4 mg IVPUSH Q8H PRN PRN Reason: Nausea and Vomiting Sodium Chloride (0.9 % Sodium Chloride Flush 3 Ml Syringe) 3 ml IVFLUSH QSHIFT [facility] Last Admin: 06/28/23 08:38 Dose: 3 ml Documented By: DAVID Labs 06/27/23 05:00 06/27/23 05:00 Microbiology Microbiology Results: Microbiology 06/28/23 04:30 Gram Stain - Final Sputum - Expectorated Sputum Culture - Final 06/25/23 18:36 Blood Culture - Preliminary Blood - Venous No growth after 48 hours. 06/25/23 18:36 Blood Culture - Preliminary Blood - Venous No growth after 48 hours. Assessment and Plan (1) Acute hypoxemic respiratory failure: Status: Acute Plan 73M PMH htn, copd, presented wtih sob sepsis, acute hypoxic respiratory failure due to copd with acute decompensation and pneumonia rocpehin, azithro steroids, nebs wean o2 as tolerated htn amldoipnie and lisinopril dvt prophylaxis - lovenox full code reason for continued hospitalization: hypoxia Quality Stroke Does the patient have a stroke diagnosis?: No VTE Prior VTE?: No VTE Risk Level:: Medical - moderate - high VTE Device Contraindication: Treatment Not Indicated VTE Drug Contraindication: N/A - Med Ordered
[2023-06-29 03:50] VITALS: BP 142/78; PULSE 93; RESP 20; TEMP 36.8; O2SAT 93
[2023-06-29 04:16] VITALS: PULSE 87; RESP 18; O2SAT 95
[2023-06-29 05:01] VITALS: BP 142/78
--- NOTE | 2023-06-29 05:01 | PC.NURSE ---
04:00 pt bp 199/117 by automate, 180/[id number] Valenzuela notified. dr approved to give 09:00 bp meds. given by this nurse. rechecked 05:00 by manual 142/78. will continue to monitor.
[2023-06-29 07:38] VITALS: BP 178/90; PULSE 81; RESP 18; TEMP 36.9; O2SAT 93
[2023-06-29 08:55] VITALS: PULSE 81; RESP 18; O2SAT 90
--- NOTE | 2023-06-29 09:07 | PM.DS ---
DS: Providers Provider Date of Service: 06/29/23 Date of admission: 06/25/23 19:40 Primary care physician: None Physician DS: Diagnosis Discharge Diagnosis (1) Acute hypoxemic respiratory failure: Status: Acute DS: Summary Hospital Course Hospital Course: from initial hpi: 73-year-old male with pertinent history of essential hypertension, COPD not on home oxygen who presents to the emergency department for evaluation of dyspnea and cough. Patient states he has been having generalized body ache and flu-like symptoms for the last 4 weeks. Initially patient was having nonproductive cough but on the day of presentation, he started having productive cough. Also had associated wheezing and dyspnea which was worse with ambulation. No fevers or chills. Patient states that he has not seen a doctor in 10 years. He has quit smoking tobacco and only uses an inhaler as needed for COPD. No chest discomfort, palpitations, headache, fever, chills, orthopnea, PND, abdominal pain, changes in urinary or bowel habits. His blood pressure was found to be elevated upon EMS arrival and was given nitroglycerin. In the emergency department, patient requiring supplemental oxygen and imaging concerning for right-sided infiltrate. hospital course: Patient was admitted for sepsis and acute hypoxic respiratory failure secondary to COPD with acute decompensation and pneumonia. Was treated with ceftriaxone and azithromycin, IV Solu-Medrol, bronchodilators. On discharge will continue 5 more days of prednisone and 3 more days of azithromycin. For hypertension was started on amlodipine and lisinopril. Patient is feeling better will be discharged home. Time Attestation Discharge coordination time: Greater than 30 minutes Quality: Safe Use of Opioids Does Pt have an Active Cancer Diagnosis on the Problem List?: No Quality: Stroke Does the patient have a stroke diagnosis?: No Physical Exam Vital Signs: Vital Signs: Last Vital Signs Temp 98.5 F 06/29/23 07:38 Pulse 81 06/29/23 08:55 Resp 18 06/29/23 08:55 BP 178/90 H 06/29/23 07:38 Pulse Ox 93 06/29/23 07:38 O2 Del Method Room Air 06/29/23 07:38 O2 Flow Rate 1 06/28/23 07:12 BMI result Body Mass Index 24.6 General: AO X 3, no acute distress Resp: CTA bilateral, no accessory muscles used CVS: S1,S2,RRR GI: soft, non tender, non distended Neuro: motor grossly intact, alert Psych: appropriate affect, appropriate insight DS: Data Data Completed and Pending Labs on day of discharge: Preliminary micro results at discharge 06/25/23 18:36 Blood Culture - Preliminary Blood - Venous No growth after 48 hours. 06/25/23 18:36 Blood Culture - Preliminary Blood - Venous No growth after 48 hours. Discharge Plan Discharge Anticipated Discharge Date/Time: 06/29/23 09:04 Patient Disposition: Home, Self-Care Discharge Diagnosis: copd Referrals: Physician,None [Primary Care Provider] - 1 Week Discharge Medications: New amlodipine 5 mg Tablet 5 mg PO DAILY Qty: 30 0RF Protocol: Hold for SBP< HOLD for SBP < : 90 lisinopril 5 mg Tablet 5 mg PO DAILY Qty: 30 0RF Protocol: Hold for SBP< HOLD for SBP < : 90 prednisone 20 mg tablet 40 mg PO DAILY Qty: 10 0RF azithromycin 500 mg tablet 500 mg PO DAILY 3 Days Qty: 3 0RF albuterol sulfate 90 mcg/actuation HFA aerosol inhaler 2 puff inhalation Q6H PRN (Reason: sob) Qty: 6.7 0RF Continued ascorbic acid (vitamin C) 500 mg Tablet 500 mg PO DAILY albuterol sulfate 90 mcg/actuation HFA aerosol inhaler 2 puff inhalation Q4H Discontinued aspirin 81 mg Tablet,Chewable 81 mg PO DAILY Diet: Advance to usual diet Activity on Discharge: As tolerated Stand Alone Forms: Patient Portal Discharge page Care Plan Goals: recovery Health Concerns: copd Plan of Treatment: prednisone, azitrho, start bp meds, follow up pcp Assessment: see above
[2023-06-29 12:06] VITALS: PULSE 78; RESP 18; O2SAT 93
== END 2023-06-29 13:32 | disposition home or self-care (01) | DRG 871 ==
LOC: HO.ED 19:02 → HO.EDOVER 19:54 → HO.S3 06-26 02:28
PROVIDERS: Admitting Provider Student in an Organized Health Care Education/Training Program; Emergency Provider Emergency Medicine Emergency Medical Services; Visit Provider Internal Medicine
DX: A41.9 Sepsis, unspecified organism (principal); J18.9 Pneumonia, unspecified organism; J96.01 Acute respiratory failure with hypoxia; J44.0 Chronic obstructive pulmonary disease with (acute) lower respiratory infection; J44.1 Chronic obstructive pulmonary disease with (acute) exacerbation; I16.0 Hypertensive urgency; I10 Essential (primary) hypertension; E87.6 Hypokalemia; Z20.822 Contact with and (suspected) exposure to COVID-19; Z87.891 Personal history of nicotine dependence; Z79.899 Other long term (current) drug therapy
CPT/HCPCS: 0241U; 36415; 71045; 80048; 81001; 83605; 83880; 84484; 85025; 85027; 87040; 87070; 87205; 93005; 94640; 99285; J0456; J0696; J1650; J2920; J2930

== ENCOUNTER → 2023-06-25 17:15 | Outpatient (BNV) | payer MEDICARE, SELFPAY | PROVIDERS: Admitting Provider Student in an Organized Health Care Education/Training Program; Emergency Provider Emergency Medicine Emergency Medical Services; Visit Provider Internal Medicine Cardiovascular Disease | DX: R94.31 Abnormal electrocardiogram [ECG] [EKG] (principal) | CPT/HCPCS: 93010 ==

== ENCOUNTER → 2023-06-25 19:40 | Outpatient (BNV) | payer MEDICARE, SELFPAY | PROVIDERS: Admitting Provider Student in an Organized Health Care Education/Training Program; Emergency Provider Emergency Medicine Emergency Medical Services; Visit Provider Student in an Organized Health Care Education/Training Program | DX: J96.01 Acute respiratory failure with hypoxia (principal) | CPT/HCPCS: 99223; 99232; 99233; 99239 ==

== ENCOUNTER 2023-07-24 14:12 | Outpatient (AMB) | payer MEDICARE, SELFPAY ==
[2023-07-24 14:21] VITALS: BP 162/90; PULSE 83; O2SAT 97; BMI 27.0
--- NOTE | 2023-07-24 14:21 | A.OFFPC_ITS ---
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 Intake Note: pt is here for [facility] [employer] Required: No Allergies No Known Allergies Allergy (Verified 07/24/23 14:34) Medication List - Last Reconciled 07/24/23 by CLAU Acevedo albuterol sulfate 90 mcg/actuation 2 puffs inhalation Q4H amlodipine 5 mg See Protocol PO DAILY ascorbic acid (vitamin C) 500 mg PO DAILY lisinopril 5 mg See Protocol PO DAILY Tobacco use date assessed: 07/24/23 Fall risk assessment: No Falls in past year Last assessed Fall Risk: 07/24/23 Dental Screening Dental Screen Date: 07/24/23 Did you have a dental visit in the last 12 months?: Yes Did you have a dental problem in the last 6 months where you did not have access to dental care?: No Was dental information given to patient?: Yes HPI HPI Comments History of Present Illness Details Patient is a 73-year-old male here to [facility]. He was recently discharged from [facility] as an inpatient due to respiratory failure. He was discharged on June 29, 3 weeks prior to this appointment. He has not had a primary care provider in over 10 years. He was given lisinopril 5 mg and amlodipine 5 mg on discharge due to hypertension while in the hospital. Patient has a significant tobacco smoking history, smoked 2 packs per day for over 40 years, he will refer to thoracic for low-dose CT scan. Patient will get pneumonia vaccine today in office. Patient educated that he should get a high- dose flu vaccine, he has declined. Patient is going to send medical records from [place]. States his last colonoscopy was about 5 years ago. He is declining colonoscopy referral today, but states he is willing to reconsider at future appointments. Will order fasting labs today. Will obtain A1c in office. His lisinopril will be increased from 5 mg daily to 10 mg daily. Patient will be instructed to take blood pressure measurements at home, will follow-up in 1 month. [facility] Medical History (Updated 07/24/23 @ 15:22 by CLAU Acevedo) Hepatitis C Compressed cervical disc Former tobacco use COPD (chronic obstructive pulmonary disease) Essential hypertension Surgical History (Updated 07/24/23 @ 14:39 by CLAU Acevedo) H/O carpal tunnel repair Family History (Updated 07/24/23 @ 14:40 by CLAU Acevedo) Maternal Grandfather Leukemia Social History Household Members: None Housing: House Patient Tobacco Use Status: Current everyday Tobacco user Tobacco use type: Cigarette Cigarettes Per Day: 20 service: No Cognitive needs: No Hearing needs: No Vision needs: Yes Questionnaire PHQ-9 Over the last 2 weeks, how often have you been bothered by any of the following problems? 1. Little interest or pleasure in doing things: not at all 2. Feeling down, depressed, or hopeless: not at all 3. Trouble falling or staying asleep, or sleeping too much: not at all 4. Feeling tired or having little energy: not at all 5. Poor appetite or overeating: not at all 6. Feeling bad about yourself - or that you are a failure or have let yourself or your family down: not at all 7. Trouble concentrating on things, such as reading the newspaper or watching television: not at all 8. Moving or speaking so slowly that other people could have noticed. Or the opposite - being so fidgety or restless that you have been moving around a lot more than usual: not at all 9. Thoughts that you would be better off or of hurting yourself in some way: not at all Total score: 0 Depression Screening Interpretation: Negative Depression Screening Done: Yes 67314 - PHQ-9 Billing: Yes Source: Developed by Drs. Acosta Lassiter, Eleanor Alfaro, Kelvin Islas and colleagues, with an educational ted from [employer]. Thrive Questionnaire Date Thrive assessed: 07/24/23 I am a: Patient What is your living situation today?: I have a steady place to live Within the past 12 months, did the food you bought not last and you didn't have the money to get more?: Never true Within the past 12 months, did you worry whether your food would run out before you got money to buy more?: Never true Do you have trouble paying for medicines?: No Do you have trouble getting transportation to medical appointments?: No Do you have trouble paying your heating and electricity bill?: No Do you have trouble taking care of your child, family member or friend?: No Do you have trouble with day-to-day activities such as bathing, preparing meals, shopping, managing finances, etc.?: No Are you currently unemployed and looking for a job?: No Are you interested in more education?: No Please select the resources that you would like help with: None Currently or been in a relationship where the following occur: no concerns reported THRIVE Score: 0 ABEBE-7 AMB Questionnaire ABEBE-7 Date ABEBE - 7 assessed: 07/24/23 Feeling nervous, anxious, or on edge: 0 = Not at all Not being able to stop or control worryin = Not at all Worrying too much about different things: 0 = Not at all Trouble relaxin = Not at all Being so restless that it is hard to sit still: 0 = Not at all Becoming easily annoyed or irritable: 0 = Not at all Feeling afraid as if something awful might happen: 0 = Not at all Total ABEBE-7 score (0-4 normal; 5-9 mild; 10-14 moderate; 15-21 severe): 0 Source: Developed by Drs. Acosta Lassiter, Eleanor Alfaro, Kelvin Islas and colleagues, with an educational ted from [employer]. ABEBE-7 Assessment Billing ABEBE-7 Assessment Tool: ABEBE-7 Assessment 29333 Review of Systems Const Details: Constitutional : No Weight loss, No Fever, No Chills, No Fatigue, No Malaise ENT/Mouth : No sore throat, No Rhinorrhea Eyes: No Eye Pain, No Swelling, No Redness Cardiovascular : No Chest Pain, No SOB, Admits some Dyspnea on Exertion after stairs, No Orthopnea, No Edema, No Palpitations Respiratory : No Cough, Admits Sputum, No Wheezing Gastrointestinal : No Nausea, No Vomiting, No Diarrhea, No Constipation, No abdominal Pain, No Hematochezia, No Melena Genitourinary : No Dysuria, No Urinary Frequency, No Hematuria, Musculoskeletal : Admits lower back pain in the AM. Skin : No Skin Lesions, No rash Neuro : No Weakness, No Numbness, No Dizziness, No Headache Psych : No Anxiety/Panic, No Depression Heme/Lymph: No Bruising, No Bleeding,No Lymphadenopathy Endocrine : No Polyuria, No Polydipsia All other systems reviewed and are negative Physical exam (Primary Care) Vital Signs: Last Vital Signs Pulse 83 07/24/23 14:21 BP 162/90 H 07/24/23 14:21 Pulse Ox 97 07/24/23 14:21 Care Plan Goal for BP management: Patient's lisinopril increased from 5 mg to 10 mg p.o. daily. Next steps: Take blood pressure measurements at home. Follow-up in 1 month. BMI result Body Mass Index 27.0 Tobacco/Smoking Status: Tobacco use Status Tobacco use date assessed 07/24/23 07/24/23 14:28 Patient Tobacco Use Status Current everyday Tobacco 07/24/23 14:28 Tobacco use type Cigarette 07/24/23 14:44 PHQ-9: PHQ-9 Score PHQ-9: Total score 0 07/24/23 14:28 Depression Screening Interpretation: Negative Thrive Assessment: Date of Thrive Assessment Date Thrive assessed 07/24/23 07/24/23 14:28 Currently or been in a relationship where the following occur: no concerns reported Const Other: Appearance: Alert.? Oriented X3.? No acute distress.? Neck: Normal inspection.? Neck supple.? CVS: Normal heart rate and rhythm.? Pulses normal.? Respiratory: No respiratory distress.? Breath sounds diminshed throughout bilaterally. ? Neuro: Oriented X 3.? No motor deficit.? No sensory deficit. CN 2-12 intact Results AMB Hemoglobin A1c AMB Hemoglobin A1c 5.6 % Last Edit by Mathew Sevilla CMA on 07/24/23 15: 02 Immunizations pneumoc 20-vipul conj-dip cr(PF) 0.5 mL IM syringe Performing Provider: CLAU Acevedo Performing Location: [facility] Administered by: Mathew Sevilla CMA on 07/24/23 15:03 2 Dose Route Admin Location Dispensed Lot Number Expiration Date NDC Client [employer] Analyst 0.5 mL IM Left Deltoid 0.5 mL [id number] 01/23/24 0511-1891-49 [employer] VIS Given Date VIS Provided VIS Publication Date 07/24/23 Single Vaccine 21 Eligibility Eligibility Date Funding Source Not VF Eligible 07/24/23 Private Results Reviewed Results Reviewed: Laboratory Last Values Hgb A1c (Clinic) 5.6 % (4.0-6.0) 07/24/23 14:56 Will call patient after he has labs drawn. Assessment and Plan Assessment & Plan (1) COPD (chronic obstructive pulmonary disease): Comment: Patient only has albuterol inhaler. Will refer to pulmonary function test common pulmonary medicine. Will start patient on Symbicort inhaler to be taken as prescribed. He has been educated on the side effects of this medication. He understands he can still use his albuterol inhaler when needed. Code(s): J44.9 - Chronic obstructive pulmonary disease, unspecified Qualifiers: COPD type: unspecified COPD Qualified Code(s): J44.9 - Chronic obstructive pulmonary disease, unspecified (2) Essential hypertension: Comment: Patient's lisinopril increased from 5 mg p.o. daily to 10 mg p.o. daily. Patient has been instructed to take blood pressure measurements at home. Patient is follow-up for blood pressure in 1 month. Code(s): I10 - Essential (primary) hypertension Plan: Take your medications as prescribed. If you were prescribed antibiotics today, it is important that you take your medication to their entirety, do not skip any doses, do not finish them early. Follow-up with your primary care provider this week. Return to the emergency department with new or worsening symptoms. Such as fevers, chills, chest pain, shortness of breath, nausea, vomiting, dizziness, headache, vision changes, lethargy In case of emergency call 911 Plan Follow-up in 1 month. Orders: Orders Comprehensive [place]. Panel Fast Today I10 - Essential (primary) hypertension PSA,Total (Free>4and<10) Today Z12.5 - Encounter for screening for malignant neoplasm of prostate Vitamin D 25-OH (D2 and D3) Today Z13.21 - Encounter for screening for nutritional disorder Vitamin B6 Today Z13.21 - Encounter for screening for nutritional disorder Vitamin B12 Today Z13.21 - Encounter for screening for nutritional disorder TSH reflex Free T4 Today Z13.29 - Encounter for screening for other suspected endocrine disorder AMB Hemoglobin A1c Today Z13.9 - Encounter for screening, unspecified Complete Blood Count Auto Diff Today Z13.0 - Encounter for screening for diseases of the blood and blood-forming organs and certain disorders involving the immune mechanism Lipid Panel Today Z13.220 - Encounter for screening for lipoid disorders UA CC w/rflx Micro + Cult Today I10 - Essential (primary) hypertension PFT pulmonary function test Today J44.9 - Chronic obstructive pulmonary disease, unspecified Pneumococcal 20 Immunization Today Z23 - Encounter for immunization Referrals Pulmonary Medicine Referral J44.9 - Chronic obstructive pulmonary disease, unspecified Thoracic Surgery Referral Z12.2 - Encounter for screening for malignant neoplasm of respiratory organs Medications: New budesonide-formoterol 80-4.5 mcg/actuation (Symbicort) 1 inh inhalation BID 10.2 grams 0RF lisinopril 10 mg PO DAILY 90 tabs 0RF Refilled amlodipine 5 mg See Protocol PO DAILY 90 tabs 0RF Discontinued 2 lisinopril Discontinued Reason: Doctor's Order 5 mg See Protocol PO DAILY 30 tabs 0RF Review Patient declined Colonoscopy: 07/24/23 Coding Level of Care Code Est Pt Level 3 (88423) Diagnoses Chronic obstructive pulmonary disease, unspecified COPD type J44.9 COPD type: unspecified COPD Essential hypertension I10 Additional Codes ABEBE-7 Assessment Billing - ABEBE-7 Assessment Tool: ABEBE-7 Assessment 22025 ([id number]) Time Spent (min) 45
== END 2023-07-24 15:50 | disposition home or self-care (01) ==
PROVIDERS: Visit Provider Nurse Practitioner Primary Care
DX: J44.9 Chronic obstructive pulmonary disease, unspecified (principal); I10 Essential (primary) hypertension
CPT/HCPCS: 83036; 90471; 90677; 99214

== ENCOUNTER 2023-08-02 08:57 | Outpatient (REF) | payer MEDICARE, SELFPAY ==
[2023-08-02 11:40] LABS: MANUAL DIFF FLAG NO
[2023-08-02 11:42] LABS: Basophils Absolute Auto 0.1 X10*3/uL (0.0-0.2); Basophils Percent Auto 1.1 % (0-2); Eosinophils Absolute Auto 0.2 X10*3/uL (0.0-0.4); Eosinophils Percent Auto 3.2 % (0-4); Hematocrit 42.9 % (42.0-52.0); Hemoglobin 13.9 g/dl (14.0-18.0); Imm Gran Abs Auto 0.05 X10*3/uL (0.00-0.03); Imm Gran Pct Auto 0.8 % (0.0-0.4); Lymphocytes Absolute Auto 1.5 X10*3/uL (1.2-4.9); Lymphocytes Percent Auto 23.4 % (20-40); Mean Corpuscular HGB Conc 32.4 g/dl (31.0-36.0); Mean Corpuscular Hemoglobin 29.7 pg (27.0-33.0); Mean Corpuscular Volume 91.7 fL (80.0-98.0); Mean Platelet Volume 8.8 fL (9.4-12.4); Monocytes Absolute Auto 0.6 X10*3/uL (0.1-1.2); Monocytes Percent Auto 9.8 % (2-11); Neutrophils Absolute Auto 3.8 x10*3/uL (2.0-8.3); Neutrophils Percent Auto 61.7 % (45-73); Platelet Count 327 X10*3/uL (160-400); Red Blood Count 4.68 X10*6/uL (4.60-5.80); Red Cell Distribution Width 14.1 % (11.0-16.0); White Blood Count 6.2 X10*3/uL (4.8-10.8)
[2023-08-02 12:17] LABS: Alanine Aminotransferase 10 U/L (0-40); Albumin Level 3.9 g/dL (3.5-5.0); Alkaline Phosphatase 85 U/L (39-117); Anion Gap 11 (12-20); Aspartate Amino Transferase 14 U/L (5-37); Bilirubin Total 0.3 mg/dL (0.0-1.0); Blood Urea Nitrogen 16 mg/dL (9-16); Calcium 9.6 mg/dL (8.4-10.2); Carbon Dioxide 29 mmol/L (22-29); Chloride 105 mmol/L (96-108); Cholesterol 219 mg/dL (<200); Estimated Glomerular Filt Rate > 60; Glucose Fasting 95 mg/dL (60-99); HDL Cholesterol 65 mg/dL (>40); LDL Cholesterol Calculated 140 mg/dL (<100); Potassium 4.1 mmol/L (3.3-5.1); Sodium 141 mmol/L (135-145); Triglycerides 72 mg/dL (<150)
[2023-08-02 12:25] LABS: PSA,Total (Free>4and<10) 1.01 ng/mL (0.00-4.00)
[2023-08-02 12:35] LABS: TSH reflex Free T4 1.17 uIU/mL (0.32-4.0)
[2023-08-02 12:54] LABS: Vitamin B12 419 pg/mL (200-900)
[2023-08-07 14:58] LABS: Vitamin D 25-OH, D2 <4 ng/mL; Vitamin D 25-OH, D3 8 ng/mL; Vitamin D 25-OH, Total 8 ng/mL (30-100)
[2023-08-08 12:33] LABS: Vitamin B6 <2.0 ng/mL (2.1-21.7)
== END 2023-08-02 08:58 | disposition home or self-care (01) ==
LOC: HO.HMGCLDS 08:57
PROVIDERS: PCP Nurse Practitioner Primary Care; Visit Provider Nurse Practitioner Primary Care
DX: I10 Essential (primary) hypertension (principal); Z13.0 Encounter for screening for diseases of the blood and blood-forming organs and certain disorders involving the immune mechanism; Z13.220 Encounter for screening for lipoid disorders; Z12.5 Encounter for screening for malignant neoplasm of prostate; Z13.29 Encounter for screening for other suspected endocrine disorder; Z13.21 Encounter for screening for nutritional disorder
CPT/HCPCS: 36415; 80053; 80061; 82306; 82607; 84153; 84207; 84443; 85025

== ENCOUNTER 2023-08-26 13:27 | Outpatient (AMB) | payer MEDICARE, SELFPAY ==
[2023-08-26 13:32] VITALS: BP 150/76; PULSE 80; O2SAT 95; BMI 26.6
--- NOTE | 2023-08-26 13:32 | A.OFFPC_ITS ---
Vital Signs 08/26/23 13:32 Height 5 ft 8 in Weight 175 lb BMI 26.6 BP 150/76 H Blood Pressure Location Rt brachial Position Sitting Pulse 80 Pulse Source Pulse Oximeter Pulse Oximetry (%) 95 Oxygen Delivery Method Room Air Intake Visit Reasons: 1M F/U Intake Note: Pt is here today for 1 month follow up visit. Allergies No Known Allergies Allergy (Verified 08/26/23 13:34) Tobacco use date assessed: 08/26/23 HPI HPI Comments History of Present Illness Details Patient is a 73-year-old male here for hypertension hyperlipidemia follow-up. Previous visit patient was placed 10 mg lisinopril, 5 mg amlodipine, 20 mg atorvastatin. In addition the patient has a past medical history significant for COPD. Patient was prescribed Symbicort but has not been taking at home, patient has been educated how to take the Symbicort and albuterol properly, has been educated that he should rinse mouth after use. He has upcoming appointment with Pulmonary and 3 weeks. He also has upcoming appointment with Optometry. The patient has been taking blood pressure measurements at home that demonstrated elevated blood pressure in the morning, but in control blood pressure before bed. The patient has been taking both lisinopril and amlodipine in the morning. He has been educated that he should instead take his amlodipine at night. He has also been asked to continue to take blood pressure measurements at home. He denies episodes of dizziness, numbness, chest pain, shortness a breath, nausea, vomiting, diarrhea. [facility] Medical History Hepatitis C Compressed cervical disc Former tobacco use COPD (chronic obstructive pulmonary disease) Essential hypertension Surgical History H/O carpal tunnel repair Family History Maternal Grandfather Leukemia Social History Household Members: None Housing: House Patient Tobacco Use Status: Current everyday Tobacco user Tobacco use type: Cigarette Cigarettes Per Day: 20 service: No Cognitive needs: No Hearing needs: No Vision needs: Yes Questionnaire Thrive Questionnaire Date Thrive assessed: 07/24/23 ABEBE-7 AMB Questionnaire ABEBE-7 Date ABEBE - 7 assessed: 07/24/23 Source: Developed by Drs. Acosta Lassiter, Eleanor Alfaro, Kelvin Islas and colleagues, with an educational ted from [employer]. Review of Systems Const Details: Constitutional : No Weight loss, No Fever, No Chills, No Fatigue, No Malaise Eyes: No Eye Pain, No Swelling, No Redness, No vision change. Cardiovascular : No Chest Pain, No SOB, No Dyspnea on Exertion, No Orthopnea, No Edema, No Palpitations Respiratory : No Cough, No Sputum, Admits Wheezing Gastrointestinal : No Nausea, No Vomiting, No Diarrhea, No Constipation, No abdominal Pain, No Hematochezia, No Melena Musculoskeletal : Admits upper back discomfort. Skin : No Skin Lesions, No rash Neuro : No Weakness, No Numbness, No Dizziness, No Headache Psych : No Anxiety/Panic, No Depression Heme/Lymph: No Bruising, No Bleeding,No Lymphadenopathy Endocrine : No Polyuria, No Polydipsia All other systems reviewed and are negative Physical exam (Primary Care) Vital Signs: Last Vital Signs Pulse 80 08/26/23 13:32 BP 150/76 H 08/26/23 13:32 Pulse Ox 95 08/26/23 13:32 Oxygen Delivery Method Room Air 08/26/23 13:32 BMI result Body Mass Index 26.6 Tobacco/Smoking Status: Tobacco use Status Tobacco use date assessed 08/26/23 08/26/23 13:36 Patient Tobacco Use Status Current everyday Tobacco 08/26/23 13:32 Tobacco use type Cigarette 08/26/23 13:32 Thrive Assessment: Date of Thrive Assessment Date Thrive assessed 07/24/23 08/26/23 13:32 Const Other: Appearance: Alert.? Oriented X3.? No acute distress.? Head: Normocephalic, atraumatic. Eyes: Pupils equal, round and reactive to light.? CVS: Normal heart rate and rhythm.? Pulses normal.? Respiratory: No respiratory distress.? Breath Sounds diminished bilaterally. +slight wheeze. Extremities: No lower extremity edema.? No calf ttp. 5/5 strength to bilateral upper and lower extremities Back: No midline tenderness, no C-spine tenderness, full range of motion, no CVA tenderness bilaterally. No obvious deformity. Neuro: Oriented X 3.? No motor deficit.? No sensory deficit. CN 2-12 intact Office Procedures EKG 15116-[id number], Complete Assessment and Plan Assessment & Plan (1) COPD (chronic obstructive pulmonary disease): Comment: Patient has Symbicort inhaler which she has been educated how to use. His been educated on side effects of medication. Patient has agreed to start using his inhaler at home. He has a pulmonary appointment in 3 weeks. Code(s): J44.9 - Chronic obstructive pulmonary disease, unspecified Qualifiers: COPD type: unspecified COPD Qualified Code(s): J44.9 - Chronic obstructive pulmonary disease, unspecified Plan: Take your medications as prescribed. If you were prescribed antibiotics today, it is important that you take your medication to their entirety, do not skip any doses, do not finish them early. Follow-up with your primary care provider this week. Return to the emergency department with new or worsening symptoms. Such as fev ers, chills, chest pain, shortness of breath, nausea, vomiting, dizziness, headache, vision changes, lethargy In case of emergency call 911 (2) Essential hypertension: Comment: Patient has been instructed to change his medication regiment. He will take his lisinopril in the morning, will take amlodipine at night. He will continue to take blood pressure measurements at home. Code(s): I10 - Essential (primary) hypertension (3) Upper back pain: Comment: Patient states he has intermittent upper back pain. 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 Will order cervical spine x-ray. Code(s): M54.9 - Dorsalgia, unspecified (4) Abnormal EKG: Comment: Patient has EKG normal sinus rhythm with anteroseptal infarct. Will refer to Cardiology Code(s): R94.31 - Abnormal electrocardiogram [ECG] [EKG] Plan Patient to follow-up in 2 months. Needs redraw of lipid profile. Orders: Orders XR cervical spine 2V Today M54.9 - Dorsalgia, unspecified Lipid Panel 2 Months Z13.220 - Encounter for screening for lipoid disorders AMB EKG-In Office Today R01.1 - Cardiac murmur, unspecified Medications: New Symbicort 160-4.5 mcg/actuation (budesonide-formoterol) 2 puffs inhalation Q12H 10.2 grams 0RF NS Discontinued budesonide-formoterol 80-4.5 mcg/actuation (Symbicort) Discontinued Reason: Doctor's Order 1 inh inhalation BID 30.6 grams 1RF Coding Level of Care Code Est Pt Level 3 (42819) Diagnoses Chronic obstructive pulmonary disease, unspecified COPD type J44.9 COPD type: unspecified COPD Essential hypertension I10 Upper back pain M54.9 Abnormal EKG R94.31 CPT Codes EKG - CPT: 88720-[id number], Complete ([id number]) Time Spent (min) 25
== END 2023-08-26 14:10 | disposition home or self-care (01) ==
PROVIDERS: Visit Provider Nurse Practitioner Primary Care
DX: J44.9 Chronic obstructive pulmonary disease, unspecified (principal); I10 Essential (primary) hypertension; M54.9 Dorsalgia, unspecified; R94.31 Abnormal electrocardiogram [ECG] [EKG]
CPT/HCPCS: 93000; 99213

== ENCOUNTER 2023-08-26 14:14 | Outpatient (REF) | payer MEDICARE, SELFPAY ==
--- NOTE | ~2023-08-26 | XR_ITS ---
EXAMINATION: XR CERVICAL SPINE CLINICAL INFORMATION: Dorsalgia COMPARISON: None available. TECHNIQUE: 3 views of the cervical spine were obtained. FINDINGS: There is mild straightening of cervical lordosis with narrowing of C3-C4 C4-C5 C5-C6 and C6-C7 intervertebral disc spaces with marginal spurring. There is no spondylolysis or listhesis. There is multilevel uncovertebral osteophytosis. Soft tissues unremarkable XR/XR cervical spine 2V IMPRESSION: Multilevel degenerative changes of cervical spine
== END 2023-08-26 14:15 | disposition home or self-care (01) ==
LOC: HO.HMGCX 14:14
PROVIDERS: PCP Nurse Practitioner Primary Care; Visit Provider Nurse Practitioner Primary Care
DX: M54.9 Dorsalgia, unspecified (principal)
CPT/HCPCS: 72040

== ENCOUNTER 2023-09-20 09:54 | Outpatient (AMB) | payer MEDICARE, SELFPAY ==
--- NOTE | 2023-09-20 09:59 | MHC.OFFVIS ---
Intake Intake Visit Reasons: LDCT [place] Allergies No Known Allergies Allergy (Verified 08/26/23 13:34) HPI HPI Comments History of Present Illness Details Alli is a pleasant 73 year old male, current smoker with a 50 PYH. Patient has been smoking since age 23 for 50 years at 1 ppd. Denies marijuana use. 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 Denies second hand smoke exposure. Denies known family history of lung cancer. Denies personal history of cancers. Denies chest CT in last year. Denies recent travel outside the [place]. Admits testing positive for COVID. Admits receiving COVID Vaccine. Denies fever, chills, chest pain, new cough, hemoptysis or unintentional weight loss. Lung Cancer Screening Questionnaire reviewed with patient by provider. Shared Decision Making Completed. Discussed in detail with patient, the risk versus benefit of LDCT screening. Patient in agreement of proceeding with scan. [facility] Medical History Hepatitis C Compressed cervical disc Former tobacco use COPD (chronic obstructive pulmonary disease) Essential hypertension Surgical History H/O carpal tunnel repair Family History Maternal Grandfather Leukemia Social History (Updated 09/20/23 @ 10:45 by Steffanie Li NP) Household Members: None Housing: House Patient Tobacco Use Status: Current everyday Tobacco user Tobacco use type: Cigarette Cigarettes Per Day: 20 Years Smoked: 50 service: No Cognitive needs: No Hearing needs: No Vision needs: Yes Assessment & Plan Assessment & Plan (1) Nicotine dependence, cigarettes, uncomplicated: Code(s): F17.210 - Nicotine dependence, cigarettes, uncomplicated Plan Shared decision-making visit completed today in office. This patient meets criteria for LDCT for lung cancer screening purposes and is asymptomatic. Offered smoking cessation. Patient has been scheduled for a low dose chest CT for screening purposes at [facility]. We discussed how the results will be obtained depending on CT findings. RADS 1 and RADS 2 will receive a letter with results and will follow up for annual LDCT. Patient informed they will be contacted at later date to schedule upcoming LDCT scan. RADS 3 and RADS 4 will receive a telephone call, or an office visit after reviewing case at our Lung Cancer Conference to determine when the next LDCT will be scheduled or further interventions that may be needed. Discussed importance of screening program and compliance with yearly LDCT scan as scheduled. Risks, benefits, and alternatives were discussed in detail and patient agrees to proceed. Risks discussed include but are not limited to: radiation exposure and possibility of additional intervention for benign disease. Benefits include detection of lung cancer at an early stage. A copy of today's visit and LDCT results will be sent to patient's PCP. Incidental findings on LDCT are PCP's responsibility. If there are incidental findings, our office will ensure that PCP office is aware of these findings. All questions were answered and patient is in agreement of plan. Coding Level of Care Code Lung Cancer Screening G0296 Diagnoses Nicotine dependence, cigarettes, uncomplicated F17.210
== END 2023-09-20 10:07 | disposition home or self-care (01) ==
PROVIDERS: PCP Nurse Practitioner Primary Care; Referring Provider Nurse Practitioner Primary Care; Visit Provider Nurse Practitioner Family
DX: F17.210 Nicotine dependence, cigarettes, uncomplicated (principal)
CPT/HCPCS: G0296

== ENCOUNTER 2023-09-20 10:07 | Outpatient (REF) | payer MEDICARE, SELFPAY ==
--- NOTE | ~2023-09-20 | CT_ITS ---
EXAMINATION: CT LUNG SCREENING CLINICAL INFORMATION: Nicotine dependence. Current smoker. One pack per day. 50 pack-year history. COMPARISON: Chest radiograph 06/25/2023. TECHNIQUE: Multidetector volumetric CT imaging of the chest is performed without contrast using low dose technique. Additional 2D coronal and sagittal reformatted images and axial 3D maximum intensity projection (MIP) images are generated on the CT workstation. This CT examination was performed using dose optimization techniques as appropriate, variously including the following: *Automated exposure control *Adjustment of mA and/or kV according to patient size (this includes techniques or standardized protocols for targeted exams where dose is matched to indication/reason for exam; i.e. extremities or head) *Use of iterative reconstruction technique DLP: 47 mGy-cm. FINDINGS: LUNGS: Moderate emphysematous changes are present in the lungs. A saber-sheath trachea is present. Moderate diffuse bronchial thickening is seen. Tree-in-bud opacities and increased ground-glass change noted at the right lung base. A few tiny punctate micronodules are seen (see davies images). No concerning or worrisome nodule. MEDIASTINUM: The mediastinum is normal. CORONARY ARTERY CALCIFICATION: Marked. PLEURA: There is no pleural effusion. No pleural mass or thickening. AXILLA: No lymphadenopathy. UPPER ABDOMEN: A benign left upper pole 4.0 cm Bosniak class I renal cyst is noted which requires no additional imaging or follow up. No solid renal masses are seen. OSSEOUS STRUCTURES: Mild degenerative changes are present. Schmorl's node inferior endplate T11. CT/CT lung screening IMPRESSION: COPD and bronchial thickening. Tree-in-bud opacities right lung base. No worrisome or concerning pulmonary nodules. ASSESSMENT: Lung-RADS category 2: Benign. RECOMMENDATION: Routine annual low-dose CT screening in 12 months.
== END 2023-09-20 10:08 | disposition home or self-care (01) ==
LOC: HO.CT 10:07
PROVIDERS: PCP Nurse Practitioner Primary Care; Visit Provider Nurse Practitioner Family
DX: Z12.2 Encounter for screening for malignant neoplasm of respiratory organs (principal); F17.210 Nicotine dependence, cigarettes, uncomplicated
CPT/HCPCS: 71271; G0296

== ENCOUNTER 2023-10-16 11:56 | Inpatient (IN) | payer MEDICARE, SELFPAY ==
[2023-10-16] VITALS (10 sets, daily range): BP systolic 000–168; BP diastolic 00–79; PULSE 91–120; RESP 16–36; TEMP 36.8–37.7; O2SAT 2–96; BMI 25.1
--- NOTE | ~2023-10-16 | XR_ITS ---
EXAMINATION: XR CHEST CLINICAL INFORMATION: Shortness of breath COMPARISON: Previous chest x-ray June 2023 TECHNIQUE: Frontal view of the chest was obtained. FINDINGS: The cardiac and mediastinal contours are similar stable. The lungs are well-inflated suggestive of emphysema. The lungs are clear without evidence of pneumonia. No pleural effusion or pneumothorax. Degenerative changes of the spine. XR/XR chest 1V IMPRESSION: Well inflated lungs. No evidence of pneumonia.
--- NOTE | 2023-10-16 12:07 | ECG_ITS ---
Test Reason : SOB Blood Pressure : / mmHG Vent. Rate : 112 BPM Atrial Rate : 112 BPM P-R Int : 152 ms QRS Dur : 072 ms QT Int : 296 ms P-R-T Axes : 072 071 081 degrees QTc Int : 404 ms Sinus tachycardia Anteroseptal infarct (cited on or before 25-JUN-2023) Nonspecific ST abnormality Abnormal ECG When compared with ECG of 25-JUN-2023 17:50, Questionable change in initial forces of Anterior leads Referred By: Shanel Vaughan Electronically Signed By:EBONI PEREZ MD
--- NOTE | 2023-10-16 12:07 | ED_ITS ---
HPI - General Adult General Chief complaint: Dyspnea Stated complaint: Diff Breathing ? Pneumonia Time Seen by Provider: 10/16/23 12:24 Source: patient Mode of arrival: ambulatory Limitations: no limitations History of Present Illness HPI narrative: Patient comes to the emergency room complaining of shortness of breath for 2 days. Patient states that he is known to have COPD. States he ran out of inhalers couple of weeks ago. Patient states he has been coughing more than usual, denies fever chills, no nausea vomiting diarrhea, denies chest pain or abdominal pain. About 3 months ago, patient was hospitalized for pneumonia. Patient states that he feels pretty much the same way. When patient arrived in triage, oxygen saturation 84% on room air Related Data Home Medications ?Medication ?Instructions ?Recorded ?Confirmed albuterol sulfate 90 mcg/actuation 2 puff inhalation Q4H 06/25/23 07/24/23 aerosol inhaler ascorbic acid (vitamin C) 500 mg 500 mg PO DAILY 06/25/23 07/24/23 tablet Previous Rx's ?Medication ?Instructions ?Recorded amlodipine 5 mg tablet 5 mg PO DAILY #90 tabs 07/24/23 atorvastatin 20 mg tablet 20 mg PO BEDTIME #90 tabs 08/08/23 Symbicort 160 mcg-4.5 2 puff inhalation Q12H #10.2 grams 08/26/23 mcg/actuation HFA aerosol inhaler (budesonide-formoterol) lisinopril 10 mg tablet 10 mg PO DAILY #90 tabs 10/16/23 Allergies Allergy/AdvReac Type Severity Reaction Status Date / Time No Known Allergies Allergy Verified 10/16/23 12:11 Review of Systems 2 Review of Systems: Constitutional : No Weight loss, No Fever, No Chills, No Night Sweats, No Fatigue, No Malaise ENT/Mouth : No Hearing loss, No Ear Pain, No Nasal Congestion, No Sinus Pain, No Hoarseness, No sore throat, No Rhinorrhea, No Swallowing Difficulty Eyes: No Eye Pain, No Swelling, No Redness, No Foreign Body, No Discharge, No Vision Changes Cardiovascular : No Chest Pain, No SOB, No Dyspnea on Exertion, No Orthopnea, No Edema, No Palpitations Respiratory : Complaining of productive cough, wheezing, and shortness of breath Gastrointestinal : No Nausea, No Vomiting, No Diarrhea, No Constipation, No abdominal Pain, No Hematochezia, No Melena Genitourinary : no irregular bleeding, No Dysuria, No Urinary Frequency, No Hematuria, No Urinary Incontinence, No Urgency, No Flank Pain, No Urinary Flow Changes, No Hesitancy Musculoskeletal : No joint pain, No Myalgias, No Joint Swelling Skin : No Skin Lesions, No rash Neuro : No Weakness, No Numbness, No Paresthesias, No Loss of Consciousness, No Dizziness, No Headache Psych : No Anxiety/Panic, No Depression, No SI/HI/AH/VH, No Social Issues, Heme/Lymph: No Bruising, No Bleeding,No Lymphadenopathy Endocrine : No Polyuria, No Polydipsia, No Temperature Intolerance [facility] Past Medical History Medical History Hepatitis C Compressed cervical disc Former tobacco use COPD (chronic obstructive pulmonary disease) Essential hypertension Surgical History H/O carpal tunnel repair Family History Family History Maternal Grandfather Leukemia Social History Social History (Updated 09/20/23 @ 10:45 by Steffaine Li NP) Household Members: None Housing: House Patient Tobacco Use Status: Current everyday Tobacco user Tobacco use type: Cigarette Cigarettes Per Day: 20 Years Smoked: 50 Advance Directives: No Advance Directives Information Provided: Yes Do you have a plan to hurt others: No Plan service: No Cognitive needs: No Hearing needs: No Vision needs: Yes Physical Exam ED Vital Signs: Vital Signs - 24 hr 10/16/23 12:09 10/16/23 12:17 10/16/23 14:16 Temperature 99.0 F 98.5 F Pulse Rate 120 H 112 H 109 H Respiratory Rate 24 H 36 H 24 H Blood Pressure 000/00 L 153/78 H Pulse Oximetry 84 L 2 L Oxygen Delivery Method Room Air Nasal Cannula 10/16/23 14:35 Temperature Pulse Rate 102 H Respiratory Rate 23 H Blood Pressure Pulse Oximetry Oxygen Delivery Method BMI result Body Mass Index 25.1 Const Other: Appearance: Alert. Oriented X3. No acute distress. Eyes: Pupils equal, round and reactive to light. ENT: Pharynx normal. Neck: Normal inspection. Neck supple. No lymph nodes noted. No crepitus CVS: Normal heart rate and rhythm. Pulses normal. Normal S1 and S2 Respiratory: Tachypneic, respiratory rate in the 36, oxygen saturation 84, bilateral wheezing, no crackles Abdomen: Soft and nontender. No rigidity. No distention. Skin: Skin warm and dry. Normal skin color. Normal skin turgor. Extremities: No lower extremity edema. No Lacerations. No Rash Neuro: Oriented X 3. No motor deficit. No sensory deficit. Moving all extremities. No slurred speech. CN 2 through 12 grossly intact Psych: calm, cooperative, normal affect Course Course Course Narrative: This is an RME: Additional HPI, ROS, PE not included below will be deferred to primary provider. 73 yo m with pmhx of COPD presents with shortness of breath since this morning. Reports inhaler ran out, so did not take any meds this morning. Reports left sided neck pain. Denies chest pain, nausea, vomiting, fevers, chills, abdominal pain. Plan- labs and imaging Medications Administered Discontinued Medications Generic Name Dose Route Start Last Admin Trade Name Freq PRN Reason Stop Dose Admin Albuterol Sulfate 7.5 mg/ 0 mg 10/16/23 12:10/16/23 12:27 Albuterol/Ipratropium 3 ml INHALE 10/16/23 12:26 10 each ONCE ONE Administration Sodium Chloride 2,449.41 mls @ 2,449.41 mls/hr 10/16/23 12:26 10/16/23 12:45 Ns 30 ml/kg infuse over 1 hr (2449.41 ml) 10/16/23 13:25 2,449.41 mls/hr IV Administration .Q1H STA Ceftriaxone Sodium 1 gm/ 50 mls @ 100 mls/hr 10/16/23 12:26 10/16/23 14:41 Sodium Chloride IV 10/16/23 12:55 Infused ONCE ONE Infusion Azithromycin 500 mg/ Sodium 250 mls @ 125 mls/hr 10/16/23 12:26 10/16/23 13:43 Chloride IV 10/16/23 14:25 125 mls/hr ONCE ONE Administration Magnesium Sulfate 2 gm in 50 mls @ 25 mls/hr 10/16/23 12:27 10/16/23 13:45 Magnesium Sulfate/H2o IV 10/16/23 14:26 Infused ONCE ONE Infusion Levalbuterol HCl 3.75 mg 10/16/23 14:29 10/16/23 14:34 Levalbuterol Hcl 1.25 Mg/3 Ml Vial.Neb INHALE 10/16/23 14:30 3.75 mg ONCE ONE Administration Methylprednisolone Sodium Succinate 125 mg 10/16/23 12:27 10/16/23 12:42 Methylprednisolone Sod Succ 125 Mg/2 Ml Vial IVPUSH 10/16/23 12:28 125 mg ONCE ONE Administration Medical Decision Making Medical Decision Making [facility] Narrative: -my interpretation of chest x-ray: No pneumonia, no infiltrates -my interpretation of labs, slightly elevated white blood cell count 11.3, lactic acid 2.1 likely secondary to nebulization treatments in the ambulance in the ED prior to obtaining blood. BNP negative. Serology negative for influenza RSV and COVID -after the nebulization treatment oxygen saturation 94% on room air. When patient was ambulated, patient's saturation dropped to the mid 70s. Patient was returned to his room, put on 4 L nasal cannula. -I discussed the patient with Dr. Tapia, pt needs admission Differential Diagnosis Differential Diagnoses: The differential diagnosis associated with the presentation includes (Asthma, chronic lung disease, pneumonia) Admission/Observation Consideration of admission/observation: Escalation of care including admission/observation considered Consult Healthcare Provider Management of the patient was discussed with: Hospitalist Lab Data [facility] Lab Attestation statement: I reviewed the patient's lab results. 10/16/23 12:23 10/16/23 12:23 Labs: Lab Results 10/16/23 10/16/23 10/16/23 Range/Units 12:22 12:23 12:30 WBC 11.3 H (4.8-10.8) X10*3/uL RBC 5.42 (4.60-5.80) X10*6/uL Hgb 16.3 (14.0-18.0) g/dl Hct 46.9 (42.0-52.0) % MCV 86.5 (80.0-98.0) fL MCH 30.1 (27.0-33.0) pg MCHC 34.8 (31.0-36.0) g/dl RDW 13.0 (11.0-16.0) % Plt Count 241 D (160-400) X10*3/uL MPV 8.7 L (9.4-12.4) fL Immature Gran % (Auto) 0.3 (0.0-0.4) % Neut % (Auto) 82.7 H (45-73) % Lymph % (Auto) 5.2 L (20-40) % [place] % (Auto) 11.4 H (2-11) % Eos % (Auto) 0.0 (0-4) % Baso % (Auto) 0.4 (0-2) % Lymph # (Auto) 0.6 L (1.2-4.9) X10*3/uL [place] # (Auto) 1.3 H (0.1-1.2) X10*3/uL Eos # (Auto) 0.0 (0.0-0.4) X10*3/uL Baso # (Auto) 0.1 (0.0-0.2) X10*3/uL Abs Immat Gran (auto) 0.03 (0.00-0.03) X10*3/uL Absolute Neuts (auto) 9.4 H (2.0-8.3) x10*3/uL Absolute Nucleated RBC 0.000 (0.0-0.012) X10*3/uL Nucleated RBC % (auto) 0.0 (0.0-0.2) /100WBC PT 14.6 H (11.1-13.3) SEC INR 1.2 H (0.9-1.1) VBG pH 7.29 L (7.32-7.43) VBG pCO2 59 mmHg VBG pO2 46 mmHg VBG HCO3 29 H (22-26) mmol/L VBG O2 Saturation 72.0 % VBG Base Excess 1.1 mmol/L Sodium 139 (135-145) mmol/L Potassium 3.8 (3.3-5.1) mmol/L Chloride 100 (96-108) mmol/L Carbon Dioxide 28 (22-29) mmol/L Anion Gap 15 (12-20) BUN 13 (9-16) mg/dL Creatinine 0.95 (0.5-1.4) mg/dL Estim Creat Clear Calc 75.9 Estimated GFR > 60 Random Glucose 147 H (60-115) mg/dL Lactic Acid (0.5-2.0) mmol/L Calcium 10.2 D (8.4-10.2) mg/dL Magnesium 2.3 (1.6-2.6) mg/dL Total Bilirubin 1.0 (0.0-1.0) mg/dL AST 21 (5-37) U/L ALT 11 (0-40) U/L Alkaline Phosphatase 88 (39-117) U/L Troponin I High Sens 4.3 (<3.5-35.0) ng/L B-Natriuretic Peptide 36 (<100) pg/mL Total Protein 8.3 H (6.5-8.0) g/dL Albumin 4.8 (3.5-5.0) g/dL Influenza Type A (PCR) NEGATIVE (Negative) Influenza Type B (PCR) NEGATIVE (Negative) RSV RNA Qual (PCR) NEGATIVE (Negative) SARS-CoV-2 RNA (RT-PCR) NEGATIVE (Negative) 10/16/23 Range/Units 12:54 WBC (4.8-10.8) X10*3/uL RBC (4.60-5.80) X10*6/uL Hgb (14.0-18.0) g/dl Hct (42.0-52.0) % MCV (80.0-98.0) fL MCH (27.0-33.0) pg MCHC (31.0-36.0) g/dl RDW (11.0-16.0) % Plt Count (160-400) X10*3/uL MPV (9.4-12.4) fL Immature Gran % (Auto) (0.0-0.4) % Neut % (Auto) (45-73) % Lymph % (Auto) (20-40) % [place] % (Auto) (2-11) % Eos % (Auto) (0-4) % Baso % (Auto) (0-2) % Lymph # (Auto) (1.2-4.9) X10*3/uL [place] # (Auto) (0.1-1.2) X10*3/uL Eos # (Auto) (0.0-0.4) X10*3/uL Baso # (Auto) (0.0-0.2) X10*3/uL Abs Immat Gran (auto) (0.00-0.03) X10*3/uL Absolute Neuts (auto) (2.0-8.3) x10*3/uL Absolute Nucleated RBC (0.0-0.012) X10*3/uL Nucleated RBC % (auto) (0.0-0.2) /100WBC PT (11.1-13.3) SEC INR (0.9-1.1) VBG pH (7.32-7.43) VBG pCO2 mmHg VBG pO2 mmHg VBG HCO3 (22-26) mmol/L VBG O2 Saturation % VBG Base Excess mmol/L Sodium (135-145) mmol/L Potassium (3.3-5.1) mmol/L Chloride (96-108) mmol/L Carbon Dioxide (22-29) mmol/L Anion Gap (12-20) BUN (9-16) mg/dL Creatinine (0.5-1.4) mg/dL Estim Creat Clear Calc Estimated GFR Random Glucose (60-115) mg/dL Lactic Acid 2.1 H* (0.5-2.0) mmol/L Calcium (8.4-10.2) mg/dL Magnesium (1.6-2.6) mg/dL Total Bilirubin (0.0-1.0) mg/dL AST (5-37) U/L ALT (0-40) U/L Alkaline Phosphatase (39-117) U/L Troponin I High Sens (<3.5-35.0) ng/L B-Natriuretic Peptide (<100) pg/mL Total Protein (6.5-8.0) g/dL Albumin (3.5-5.0) g/dL Influenza Type A (PCR) (Negative) Influenza Type B (PCR) (Negative) RSV RNA Qual (PCR) (Negative) SARS-CoV-2 RNA (RT-PCR) (Negative) Independent Interpretation I performed an independent interpretation of an: Plain X-Ray Radiology Impression Discussion of test interpretation with radiology: I have reviewed the radiologist's reading. Radiologist Impression: FINDINGS: The cardiac and mediastinal contours are similar stable. The lungs are well-inflated suggestive of emphysema. The lungs are clear without evidence of pneumonia. No pleural effusion or pneumothorax. Degenerative changes of the spine. XR/XR chest 1V IMPRESSION: Well inflated lungs. No evidence of pneumonia. Critical Care Time Critical Care Time Critical Care Time: Yes Total Critical Care Time: 75 Attestation: I have personally provided critical care time. Time includes review of lab data, radiology results, discussion with consultants, and monitoring for potential decompensation. Intervention performed as documented. Discharge Plan Discharge Clinical Impression: Chronic lung disease, Hypoxic respiratory failure Patient Disposition: Admitted As Inpatient Prescriptions: No Action lisinopril 10 mg tablet 10 mg PO DAILY Qty: 90 0RF ascorbic acid (vitamin C) 500 mg Tablet 500 mg PO DAILY albuterol sulfate 90 mcg/actuation HFA aerosol inhaler 2 puff inhalation Q4H amlodipine 5 mg tablet 5 mg PO DAILY Qty: 90 0RF Protocol: Hold for SBP< HOLD for SBP < : 90 atorvastatin 20 mg tablet 20 mg PO BEDTIME Qty: 90 0RF budesonide-formoterol [Symbicort] 160-4.5 mcg/actuation HFA aerosol inhaler 2 puff inhalation Q12H Qty: 10.2 0RF Print Language: [place]
[2023-10-16] MEDS: Albuterol Sulfate 7.5 MG, Albuterol/Iprat 2.5/0.5MG 3 ML 3 ML INHALE (12:27)
[2023-10-16 12:32] LABS: MANUAL DIFF FLAG NO
[2023-10-16 12:34] LABS: Basophils Absolute Auto 0.1 X10*3/uL (0.0-0.2); Basophils Percent Auto 0.4 % (0-2); Hematocrit 46.9 % (42.0-52.0); Hemoglobin 16.3 g/dl (14.0-18.0); Imm Gran Abs Auto 0.03 X10*3/uL (0.00-0.03); Imm Gran Pct Auto 0.3 % (0.0-0.4); Lymphocytes Absolute Auto 0.6 X10*3/uL (1.2-4.9); Lymphocytes Percent Auto 5.2 % (20-40); Mean Corpuscular HGB Conc 34.8 g/dl (31.0-36.0); Mean Corpuscular Hemoglobin 30.1 pg (27.0-33.0); Mean Corpuscular Volume 86.5 fL (80.0-98.0); Mean Platelet Volume 8.7 fL (9.4-12.4); Monocytes Absolute Auto 1.3 X10*3/uL (0.1-1.2); Monocytes Percent Auto 11.4 % (2-11); Neutrophils Absolute Auto 9.4 x10*3/uL (2.0-8.3); Neutrophils Percent Auto 82.7 % (45-73); Platelet Count 241 X10*3/uL (160-400); Red Blood Count 5.42 X10*6/uL (4.60-5.80); White Blood Count 11.3 X10*3/uL (4.8-10.8)
[2023-10-16 12:35] LABS: Venous Blood Gas Refer to POC result
[2023-10-16 12:36] LABS: VBG Base Excess 1.1 mmol/L; VBG HCO3 29 mmol/L (22-26); VBG pCO2 59 mmHg; VBG pH 7.29 (7.32-7.43); VBG pO2 46 mmHg
[2023-10-16 12:41] LABS: INTERNATIONAL NORM RATIO 1.2 (0.9-1.1); Prothrombin Time 14.6 SEC (11.1-13.3)
[2023-10-16] MEDS: methylPREDNISolone Sod Succ 125 MG/2 ML VIAL IVPUSH (12:42)
[2023-10-16] MEDS: Magnesium Sulfate/H2O 2 GM/50 ML PIGGYBACK IV (12:45)
[2023-10-16] MEDS: 0.9 % Sodium Chloride 2,449.41 ML 2449.41 ML IV (12:45)
[2023-10-16 12:48] LABS: Alanine Aminotransferase 11 U/L (0-40); Albumin Level 4.8 g/dL (3.5-5.0); Alkaline Phosphatase 88 U/L (39-117); Anion Gap 15 (12-20); Aspartate Amino Transferase 21 U/L (5-37); Blood Urea Nitrogen 13 mg/dL (9-16); Calcium 10.2 mg/dL (8.4-10.2); Carbon Dioxide 28 mmol/L (22-29); Chloride 100 mmol/L (96-108); Creatinine Clr Calc Pharmacy 75.9; Estimated Glomerular Filt Rate > 60; Glucose Random 147 mg/dL (60-115); Magnesium 2.3 mg/dL (1.6-2.6); Potassium 3.8 mmol/L (3.3-5.1); Sodium 139 mmol/L (135-145); Total Protein 8.3 g/dL (6.5-8.0)
[2023-10-16 12:53] LABS: B Type Natriuretic Peptide 36 pg/mL (<100)
[2023-10-16 12:54] LABS: Troponin-I High Sensitivity 4.3 ng/L (<3.5-35.0)
[2023-10-16 13:12] LABS: Influenza A PCR NEGATIVE (Negative); Influenza B PCR NEGATIVE (Negative); Resp Syncy Virus RNA Qual PCR NEGATIVE (Negative); SARS COV2 PCR INHOUSE NEGATIVE (Negative)
[2023-10-16] MEDS: cefTRIAXone sodium 1 GM in 0.9 % Sodium Chloride 50 ML IV (13:20)
[2023-10-16 13:25] LABS: Lactic Acid 2.1 mmol/L (0.5-2.0)
[2023-10-16] MEDS: Azithromycin 500 MG in 0.9 % Sodium Chloride 250 ML 125 MG IV (13:43)
[2023-10-16] MEDS: levalbuterol HCL 1.25 MG/3 ML VIAL.NEB 3.75 MG INHALE (14:34)
[2023-10-16 14:58] LABS: Reflex Lactate? Lactic Acid Added
--- NOTE | 2023-10-16 15:55 | PHA.MEDREC ---
Pharmacy Consult ? Medication Reconciliation Pharmacy has completed the medication reconciliation. Patient reported all medications. Reports insurance will not cover Symbicort so he only has an albuterol inhaler. Mary Bueno, KaitD
[2023-10-16 16:33] LABS: ~Lactic Acid-LAB USE ONLY 2.8 mmol/L (0.5-2.0)
--- NOTE | 2023-10-16 17:16 | PM.IMHP ---
History of Present Illness Date of Service: 10/16/23 Chief Complaint: Shortness of breath 73-year-old gentleman with past medical history significant for COPD not on home oxygen, essential hypertension, tobacco use disorder currently smoking 1 and half pack per day, quit for 3 months and restarted couple weeks ago, developed shortness of breath yesterday while he was working in the [employer] on an old bike with diesel fumes coming from the heater in front of him with dust everywhere, he developed shortness of breath, Cough, headache, and dizziness, he denies fever, felt cold, no nausea, no vomiting, no abdominal pain, no sinus pressure since symptoms persisted and he ran out of his inhalers, he came to ER for evaluation and was noted to be hypoxic HERNANDEZ 84% on room air patient treated with multiple nebulizer treatment and IV steroid and was ambulated O2 dropped to 70s, chest x-ray showed no acute infiltrate, or recent CT lung last month showed bronchial thickening, tree-in-bud opacities right lung base seems chronic noted on chest x-ray June 2023 and no significant pulmonary nodules. Review of Systems Review of Systems: General dizziness , feeling cold CVS no chest pain, no palpitation. Respiratory shortness of breath, cough. Gastrointestinal no nausea no vomiting, no abdominal pain Skin no rash no urgency, no frequency All other system reviewed and negative [facility] Medical History Hepatitis C Compressed cervical disc Former tobacco use COPD (chronic obstructive pulmonary disease) Essential hypertension Family History Maternal Grandfather Leukemia Surgical History H/O carpal tunnel repair Social History (Updated 09/20/23 @ 10:45 by Steffanie Li NP) Household Members: None Housing: House Patient Tobacco Use Status: Current everyday Tobacco user Tobacco use type: Cigarette Cigarettes Per Day: 20 Years Smoked: 50 Advance Directives: No Advance Directives Information Provided: Yes Do you have a plan to hurt others: No Plan service: No Cognitive needs: No Hearing needs: No Vision needs: Yes Meds Allergies Allergy/AdvReac Type Severity Reaction Status Date / Time No Known Allergies Allergy Verified 10/16/23 12:11 Active Medications: Current Medications Acetaminophen (Acetaminophen 325 Mg Tablet) 650 mg PO Q6H PRN PRN Reason: Pain, Mild (Pain Scale 1-3) Albuterol/Ipratropium (Albuterol/Iprat 2.5/0.5mg 3 Ml Ampul.Neb) 3 ml INHALE RQ4H WHILE AWAKE [facility] Amlodipine Besylate (Amlodipine Besylate 5 Mg Tablet) 5 mg PO BEDTIME HOME; Protocol Atorvastatin Calcium (Atorvastatin Calcium 20 Mg Tablet) 20 mg PO BEDTIME HOME Benzonatate (Benzonatate 100 Mg Capsule) 100 mg PO TID PRN PRN Reason: Cough Docusate Sodium (Docusate Sodium 100 Mg Capsule) 100 mg PO DAILY PRN PRN Reason: Constipation Enoxaparin Sodium (Enoxaparin Sodium 40 Mg/0.4 Ml Syringe) 40 mg SUBCUT Q24H [facility] Ceftriaxone Sodium 1 gm/ (Sodium Chloride) 50 mls @ 100 mls/hr IV Q24H HOME Azithromycin 500 mg/ Sodium (Chloride) 250 mls @ 125 mls/hr IV Q24H HOME Lisinopril (Lisinopril 10 Mg Tablet) 10 mg PO DAILY HOME; Protocol Magnesium Hydroxide (Milk Of Magnesia 30 Ml Oral.Susp) 30 ml PO DAILY PRN PRN Reason: Constipation Melatonin (Melatonin 3 Mg Tablet) 6 mg PO BEDTIME PRN PRN Reason: Insomnia Methylprednisolone Sodium Succinate (Methylprednisolone Sod Succ 40 Mg/Ml Vial) 40 mg IVPUSH BID HOME Ondansetron HCl (Ondansetron Hcl 4 Mg/2 Ml Vial) 4 mg IVPUSH Q8H PRN PRN Reason: Nausea and Vomiting Sodium Chloride (0.9 % Sodium Chloride Flush 3 Ml Syringe) 3 ml IVFLUSH QSHIFT [facility] Home Medications ?Medication ?Instructions ?Recorded ?Confirmed ?Last Taken ?Type albuterol sulfate 90 mcg/actuation 2 puff inhalation Q4H PRN 06/25/23 10/16/23 Unknown History aerosol inhaler Shortness Of Breath Or Wheezing ascorbic acid (vitamin C) 500 mg 500 mg PO DAILY 06/25/23 10/16/23 10/16/23 History tablet amlodipine 5 mg tablet 5 mg PO BEDTIME 10/16/23 10/16/23 10/15/23 History Physical Exam Vital Signs and Narrative: Vital Signs: Last Vital Signs Temp 99.5 F 10/16/23 16:15 Pulse 100 10/16/23 16:15 Resp 25 H 10/16/23 16:15 BP 133/68 10/16/23 16:15 Pulse Ox 94 10/16/23 16:15 O2 Del Method Nasal Cannula 10/16/23 16:15 O2 Flow Rate 2 10/16/23 16:15 BMI result Body Mass Index 25.1 Const: Other: General awake alert x3, in no acute distress. Anicteric sclera Neck supple, no JVD. CVS regular rate rhythm, Respiratory lungs diminished breath sounds, bilateral expiratory wheeze, no use of accessory muscles Gastrointestinal abdomen soft, non tender, bowel sounds audible, no guarding , no rigidity. Extremities no edema. Neuro non focal , moving all 4 extremity speech clear. Skin no rash Psych appropriate affect Results Labs 10/16/23 12:23 10/16/23 12:23 Labs: Laboratory Results - last 24 hr 10/16/23 10/16/23 10/16/23 12:22 12:23 12:30 MCV 86.5 MCH 30.1 MCHC 34.8 RDW 13.0 Plt Count 241 D MPV 8.7 L Immature Gran % (Auto) 0.3 Neut % (Auto) 82.7 H Lymph % (Auto) 5.2 L [place] % (Auto) 11.4 H Eos % (Auto) 0.0 Baso % (Auto) 0.4 Lymph # (Auto) 0.6 L [place] # (Auto) 1.3 H Eos # (Auto) 0.0 Baso # (Auto) 0.1 Abs Immat Gran (auto) 0.03 Absolute Neuts (auto) 9.4 H Absolute Nucleated RBC 0.000 Nucleated RBC % (auto) 0.0 PT 14.6 H INR 1.2 H VBG pH 7.29 L VBG pCO2 59 VBG pO2 46 VBG HCO3 29 H VBG O2 Saturation 72.0 VBG Base Excess 1.1 Anion Gap 15 Estim Creat Clear Calc 75.9 Estimated GFR > 60 Random Glucose 147 H Lactic Acid Lactic Acid F/U @ 2Hr Calcium 10.2 D Magnesium 2.3 Total Bilirubin 1.0 AST 21 ALT 11 Alkaline Phosphatase 88 Troponin I High Sens 4.3 B-Natriuretic Peptide 36 Total Protein 8.3 H Albumin 4.8 Influenza Type A (PCR) NEGATIVE Influenza Type B (PCR) NEGATIVE RSV RNA Qual (PCR) NEGATIVE SARS-CoV-2 RNA (RT-PCR) NEGATIVE 10/16/23 10/16/23 12:54 16:12 MCV MCH MCHC RDW Plt Count MPV Immature Gran % (Auto) Neut % (Auto) Lymph % (Auto) [place] % (Auto) Eos % (Auto) Baso % (Auto) Lymph # (Auto) [place] # (Auto) Eos # (Auto) Baso # (Auto) Abs Immat Gran (auto) Absolute Neuts (auto) Absolute Nucleated RBC Nucleated RBC % (auto) PT INR VBG pH VBG pCO2 VBG pO2 VBG HCO3 VBG O2 Saturation VBG Base Excess Anion Gap Estim Creat Clear Calc Estimated GFR Random Glucose Lactic Acid 2.1 H* Lactic Acid F/U @ 2Hr 2.8 H* Calcium Magnesium Total Bilirubin AST ALT Alkaline Phosphatase Troponin I High Sens B-Natriuretic Peptide Total Protein Albumin Influenza Type A (PCR) Influenza Type B (PCR) RSV RNA Qual (PCR) SARS-CoV-2 RNA (RT-PCR) Imaging Radiologist's Impressions: Impressions Chest X-Ray 10/16/23 12:37 IMPRESSION: Well inflated lungs. No evidence of pneumonia. Assessment and Plan (1) Chronic lung disease: Status: Acute (2) Nicotine dependence, cigarettes, uncomplicated: Status: Acute (3) Acute hypoxemic respiratory failure: Status: Acute (4) Essential hypertension: Status: Acute Plan 73-year-old gentleman with past medical history of essential hypertension, COPD not on home oxygen presented to [facility] with acute onset of shortness of breath cough dizziness and feeling cold after being exposed to Dust and diesel fumes. # acute hypoxic respiratory failure due to acute COPD exacerbation due to exposure to dust and diesel fumes; Tachypnea tachycardia due to copd exacerbation, mild reactive leukocytosis, no sepsis Admit to telemetry/IV steroid 40 mg q.12 hours DuoNeb q.4 hours while awake scheduled and as needed IV azithromycin/cough medication Claritin 10 mg daily # essential hypertension resume home medications lisinopril 10 mg daily and amlodipine 5 mg daily # hyperlipidemia resume Lipitor 20 mg at bedtime # tobacco use disorder counseling done will place on nicotine patch 21 mg daily Full code Lovenox for DVT prophylaxis In my clinical judgment patient will require 2 night hospital stay for supplemental oxygen, IV antibiotics and IV antibiotics treatment is not possible in a less acute setting. Quality Stroke Does the patient have a stroke diagnosis?: No VTE Prior VTE?: No VTE Risk Level:: Medical - moderate - high VTE Device Contraindication: Treatment Not Indicated VTE Drug Contraindication: N/A - Med Ordered
[2023-10-16 18:17] LABS: Reflex Lactate? 2 Y
[2023-10-16] MEDS: Loratadine 10 MG TABLET PO (19:02)
[2023-10-16 20:30] LABS: ~Lactic Acid-LAB USE ONLY 2.8 mmol/L (0.5-2.0)
[2023-10-16 21:01] LABS: Cancel Lactic Acid Canceled
[2023-10-16] MEDS: Albuterol/Iprat 2.5/0.5MG 3 ML AMPUL.NEB INHALE (21:10)
[2023-10-16] MEDS: amLODIPine Besylate 5 MG TABLET PO (22:21)
[2023-10-16] MEDS: Atorvastatin Calcium 20 MG TABLET PO (22:21)
[2023-10-16] MEDS: methylPREDNISolone Sod Succ 40 MG/ML VIAL IVPUSH (22:21)
[2023-10-17] VITALS (11 sets, daily range): BP systolic 115–143; BP diastolic 71–84; PULSE 81–96; RESP 16–22; TEMP 36.1–37.3; O2SAT 95–98
[2023-10-17] MEDS: 0.9 % Sodium Chloride Flush 3 ML SYRINGE IVFLUSH ×4 (01:30→20:07)
--- NOTE | 2023-10-17 01:30 | PC.NURSE ---
assumed care of pt at 2300, pt resting in stretcher, no acute distress noted. vss, call [place] within reach.
[2023-10-17] MEDS: Albuterol/Iprat 2.5/0.5MG 3 ML AMPUL.NEB INHALE ×5 (05:43→19:34)
[2023-10-17] MEDS: Nicotine 21 MG PATCH.TD24 TRANSDERMA (09:09)
[2023-10-17] MEDS: lisinopriL 10 MG TABLET PO (09:12)
[2023-10-17] MEDS: methylPREDNISolone Sod Succ 40 MG/ML VIAL 60 MG IVPUSH ×2 (09:12→20:06)
[2023-10-17] MEDS: Loratadine 10 MG TABLET PO (09:13)
[2023-10-17] MEDS: guaiFEN/Codeine SF 200/20/10ML 10 ML LIQUID PO ×3 (09:13→20:07)
--- NOTE | 2023-10-17 12:22 | P.PNIM_ITS ---
Subjective Subjective Date of Service: 10/17/23 Interval History: Complaining of persistent shortness of breath and cough, denies fever, no chills, no headache, no dizziness, no other acute events overnight, tolerating diet no nausea, no vomiting, no abdominal pain or diarrhea., no chest pain, no palpitations. Review of Systems All other system reviewed and negative. Physical Exam 2 Vital Signs: Vital Signs: Last Vital Signs Temp 97 F 10/17/23 07:04 Pulse 96 10/17/23 11:51 Resp 20 10/17/23 11:51 BP 143/75 H 10/17/23 09:12 Pulse Ox 96 10/17/23 07:04 O2 Del Method Nasal Cannula 10/17/23 07:04 O2 Flow Rate 2 10/17/23 07:04 BMI result Body Mass Index 25.1 Const: Other: General awake alert x3, in no acute distress. Anicteric sclera Neck supple, no JVD. CVS regular rate rhythm, Respiratory lungs persistent diminished breath sounds, bilateral expiratory wheeze, no use of accessory muscles Gastrointestinal abdomen soft, non tender, bowel sounds audible, no guarding , no rigidity. Extremities no edema. Neuro non focal , moving all 4 extremity speech clear. Skin no rash Psych appropriate affect Objective Data Active Medications Acetaminophen (Acetaminophen 325 Mg Tablet) 650 mg PO Q6H PRN PRN Reason: Pain, Mild (Pain Scale 1-3) Albuterol Sulfate (Albuterol Sulfate (0.083%) 2.5 Mg/3 Ml Vial.Neb) 2.5 mg INHALE Q3H PRN PRN Reason: Shortness of Breath/Wheezing Albuterol/Ipratropium (Albuterol/Iprat 2.5/0.5mg 3 Ml Ampul.Neb) 3 ml INHALE RQ4H WHILE AWAKE [facility] Last Admin: 10/17/23 11:38 Dose: 3 ml Documented By: PENNY Amlodipine Besylate (Amlodipine Besylate 5 Mg Tablet) 5 mg PO BEDTIME [facility]; Protocol Last Admin: 10/16/23 22:21 Dose: 5 mg Documented By: ALLY Atorvastatin Calcium (Atorvastatin Calcium 20 Mg Tablet) 20 mg PO BEDTIME HOME Last Admin: 10/16/23 22:21 Dose: 20 mg Documented By: ALLY Benzonatate (Benzonatate 100 Mg Capsule) 100 mg PO TID PRN PRN Reason: Cough Docusate Sodium (Docusate Sodium 100 Mg Capsule) 100 mg PO DAILY PRN PRN Reason: Constipation Enoxaparin Sodium (Enoxaparin Sodium 40 Mg/0.4 Ml Syringe) 40 mg SUBCUT Q24H [facility] Last Admin: 10/16/23 19:02 Dose: Not Given Documented By: SOM Non-Admin Reason: Patient Refused Guaifenesin/Codeine Phosphate (Guaifen/Codeine Sf 200/20/10ml 10 Ml Liquid) 10 ml PO TID [facility] Last Admin: 10/17/23 09:13 Dose: 10 ml Documented By: GONZALES Azithromycin 500 mg/ Sodium (Chloride) 250 mls @ 125 mls/hr IV Q24H [facility] Lisinopril (Lisinopril 10 Mg Tablet) 10 mg PO DAILY [facility]; Protocol Last Admin: 10/17/23 09:12 Dose: 10 mg Documented By: GONZALES Loratadine (Loratadine 10 Mg Tablet) 10 mg PO DAILY [facility] Last Admin: 10/17/23 09:13 Dose: 10 mg Documented By: GONZALES Magnesium Hydroxide (Milk Of Magnesia 30 Ml Oral.Susp) 30 ml PO DAILY PRN PRN Reason: Constipation Melatonin (Melatonin 3 Mg Tablet) 6 mg PO BEDTIME PRN PRN Reason: Insomnia Methylprednisolone Sodium Succinate (Methylprednisolone Sod Succ 40 Mg/Ml Vial) 60 mg IVPUSH BID [facility] Last Admin: 10/17/23 09:12 Dose: 60 mg Documented By: GONZALES Nicotine (Nicotine 21 Mg Patch.Td24) 21 mg TRANSDERMA DAILY [facility] Last Admin: 10/17/23 09:09 Dose: 21 mg Documented By: GNOZALES Ondansetron HCl (Ondansetron Hcl 4 Mg/2 Ml Vial) 4 mg IVPUSH Q8H PRN PRN Reason: Nausea and Vomiting Sodium Chloride (0.9 % Sodium Chloride Flush 3 Ml Syringe) 3 ml IVFLUSH QSHIFT [facility] Last Admin: 10/17/23 09:13 Dose: 3 ml Documented By: GONZALES Labs 10/16/23 12:23 10/16/23 12:23 Labs: Laboratory Results - last 24 hr 10/16/23 10/16/2324 12:22 12:23 12:30 MCV 86.5 MCH 30.1 MCHC 34.8 RDW 13.0 Plt Count 241 D MPV 8.7 L Immature Gran % (Auto) 0.3 Neut % (Auto) 82.7 H Lymph % (Auto) 5.2 L Shannon % (Auto) 11.4 H Eos % (Auto) 0.0 Baso % (Auto) 0.4 Lymph # (Auto) 0.6 L Shannon # (Auto) 1.3 H Eos # (Auto) 0.0 Baso # (Auto) 0.1 Abs Immat Gran (auto) 0.03 Absolute Neuts (auto) 9.4 H Absolute Nucleated RBC 0.000 Nucleated RBC % (auto) 0.0 PT 14.6 H INR 1.2 H VBG pH 7.29 L VBG pCO2 59 VBG pO2 46 VBG HCO3 29 H VBG O2 Saturation 72.0 VBG Base Excess 1.1 Anion Gap 15 Estim Creat Clear Calc 75.9 Estimated GFR > 60 Random Glucose 147 H Lactic Acid Lactic Acid F/U @ 2Hr Lactic Acid F/U @ 4Hr Calcium 10.2 D Magnesium 2.3 Total Bilirubin 1.0 AST 21 ALT 11 Alkaline Phosphatase 88 Troponin I High Sens 4.3 B-Natriuretic Peptide 36 Total Protein 8.3 H Albumin 4.8 Influenza Type A (PCR) NEGATIVE Influenza Type B (PCR) NEGATIVE RSV RNA Qual (PCR) NEGATIVE SARS-CoV-2 RNA (RT-PCR) NEGATIVE 10/16/23 10/16/23 10/16/23 12:54 16:12 20:10 MCV MCH MCHC RDW Plt Count MPV Immature Gran % (Auto) Neut % (Auto) Lymph % (Auto) Shannon % (Auto) Eos % (Auto) Baso % (Auto) Lymph # (Auto) Shannon # (Auto) Eos # (Auto) Baso # (Auto) Abs Immat Gran (auto) Absolute Neuts (auto) Absolute Nucleated RBC Nucleated RBC % (auto) PT INR VBG pH VBG pCO2 VBG pO2 VBG HCO3 VBG O2 Saturation VBG Base Excess Anion Gap Estim Creat Clear Calc Estimated GFR Random Glucose Lactic Acid 2.1 H* Lactic Acid F/U @ 2Hr 2.8 H* Lactic Acid F/U @ 4Hr 2.8 H* Calcium Magnesium Total Bilirubin AST ALT Alkaline Phosphatase Troponin I High Sens B-Natriuretic Peptide Total Protein Albumin Influenza Type A (PCR) Influenza Type B (PCR) RSV RNA Qual (PCR) SARS-CoV-2 RNA (RT-PCR) Assessment and Plan (1) Hypoxic respiratory failure: Status: Acute (2) Chronic lung disease: Status: Acute (3) Nicotine dependence, cigarettes, uncomplicated: Status: Acute Plan 73-year-old gentleman with past medical history of essential hypertension, COPD not on home oxygen presented to [facility] with acute onset of shortness of breath cough dizziness and feeling cold after being exposed to Dust and diesel fumes. # acute hypoxic respiratory failure due to acute COPD exacerbation due to exposure to dust and diesel fumes; Persistent mild Tachypnea and tachycardia due to copd exacerbation, mild reactive leukocytosis, no sepsis Continue IV steroid increased to 60 mg q.12 hours, DuoNeb q.4 hours while awake scheduled and as needed IV azithromycin/ scheduled cough medication Claritin 10 mg daily Wean oxygen as tolerated not on home oxygen # acute lactic acidosis mild due to updraft treatment and not due to sepsis. # essential hypertension continue home medications lisinopril 10 mg daily and amlodipine 5 mg daily, follow BP. # hyperlipidemia Lipitor 20 mg at bedtime # tobacco use disorder counseling done placed on nicotine patch 21 mg daily. Full code Lovenox for DVT prophylaxis In my clinical judgment patient need continued inpatient hospital stay for supplemental oxygen, IV antibiotics and IV antibiotics treatment is not possible in a less acute setting. Quality Stroke Does the patient have a stroke diagnosis?: No VTE Prior VTE?: No VTE Risk Level:: Medical - moderate - high VTE Device Contraindication: Treatment Not Indicated VTE Drug Contraindication: N/A - Med Ordered
--- NOTE | 2023-10-17 12:51 | MHC.CM.PN ---
IMM DELIVERED PT LIVES ALONE WITH 2 DOGS/CAT. 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 DP: HOME, NO SERVICES ANTICIPATED. PT MAY NEED ASSIST WITH A RIDE. CM WILL CONTINUE TO FOLLOW FOR ANY CHANGE IN DC PLAN/NEEDS
[2023-10-17] MEDS: Azithromycin 500 MG in 0.9 % Sodium Chloride 250 ML 125 MG IV (14:46)
[2023-10-17] MEDS: Enoxaparin Sodium 40 MG/0.4 ML SYRINGE SUBCUT (18:24)
[2023-10-17] MEDS: Atorvastatin Calcium 20 MG TABLET PO (20:06)
[2023-10-17] MEDS: amLODIPine Besylate 5 MG TABLET PO (20:06)
[2023-10-18] VITALS (11 sets, daily range): BP systolic 102–154; BP diastolic 65–84; PULSE 70–103; RESP 16–18; TEMP 36.1–37; O2SAT 83–99
[2023-10-18] MEDS: Albuterol/Iprat 2.5/0.5MG 3 ML AMPUL.NEB INHALE ×4 (07:24→19:11)
--- NOTE | 2023-10-18 08:06 | P.PNIM_ITS ---
Subjective Subjective Date of Service: 10/18/23 Interval History: Seen in follow up for COPD exacerbation with acute hypoxemic respiratory failure Interval history: Slowly improving. Reports improvement in dyspnea at rest but continues with dyspnea on exertion. Has been monitoring O2 levels. Does desaturate to 83% on room air Review of Systems All other system reviewed and negative. Physical Exam 2 Vital Signs: Vital Signs: Last Vital Signs Temp 97.0 F 10/18/23 07:47 Pulse 70 10/18/23 07:47 Resp 18 10/18/23 04:00 BP 154/84 H 10/18/23 07:47 Pulse Ox 93 10/18/23 07:47 O2 Del Method Nasal Cannula 10/18/23 07:47 O2 Flow Rate 2 10/18/23 07:47 BMI result Body Mass Index 25.1 Constitutional - Awake and Alert, No apparent distress Eyes - PERRLA, EOMI Cardiovascular - S1S2, RRR, No edema Respiratory - Normal lung expansion, Normal respiratory effort, No respiratory distress on 2L O2, expiratory wheezes bilaterally Gastrointestinal - NT / ND; +BS; No rebound or guarding Extremities - no calf tenderness bilaterally, no swelling Skin - Warm/Dry Neurological - Alert & oriented x3 Psychological - Appropriate affect Objective Data Active Medications Acetaminophen (Acetaminophen 325 Mg Tablet) 650 mg PO Q6H PRN PRN Reason: Pain, Mild (Pain Scale 1-3) Albuterol Sulfate (Albuterol Sulfate (0.083%) 2.5 Mg/3 Ml Vial.Neb) 2.5 mg INHALE Q3H PRN PRN Reason: Shortness of Breath/Wheezing Albuterol/Ipratropium (Albuterol/Iprat 2.5/0.5mg 3 Ml Ampul.Neb) 3 ml INHALE RQ4H WHILE AWAKE HOME Last Admin: 10/18/23 07:24 Dose: 3 ml Documented By: PENNY Amlodipine Besylate (Amlodipine Besylate 5 Mg Tablet) 5 mg PO BEDTIME HOME; Protocol Last Admin: 10/17/23 20:06 Dose: 5 mg Documented By: DAVID Atorvastatin Calcium (Atorvastatin Calcium 20 Mg Tablet) 20 mg PO BEDTIME HOME Last Admin: 10/17/23 20:06 Dose: 20 mg Documented By: DAVID Benzonatate (Benzonatate 100 Mg Capsule) 100 mg PO TID PRN PRN Reason: Cough Docusate Sodium (Docusate Sodium 100 Mg Capsule) 100 mg PO DAILY PRN PRN Reason: Constipation Enoxaparin Sodium (Enoxaparin Sodium 40 Mg/0.4 Ml Syringe) 40 mg SUBCUT Q24H [facility] Last Admin: 10/17/23 18:24 Dose: 40 mg Documented By: GONZALES Guaifenesin/Codeine Phosphate (Guaifen/Codeine Sf 200/20/10ml 10 Ml Liquid) 10 ml PO TID [facility] Last Admin: 10/17/23 20:07 Dose: 10 ml Documented By: DAVID Azithromycin 500 mg/ Sodium (Chloride) 250 mls @ 125 mls/hr IV Q24H [facility] Last Infusion: 10/17/23 18:28 Dose: Infused Documented By: GONZALES Lisinopril (Lisinopril 10 Mg Tablet) 10 mg PO DAILY [facility]; Protocol Last Admin: 10/17/23 09:12 Dose: 10 mg Documented By: GONZALES Loratadine (Loratadine 10 Mg Tablet) 10 mg PO DAILY [facility] Last Admin: 10/17/23 09:13 Dose: 10 mg Documented By: GONZALES Magnesium Hydroxide (Milk Of Magnesia 30 Ml Oral.Susp) 30 ml PO DAILY PRN PRN Reason: Constipation Melatonin (Melatonin 3 Mg Tablet) 6 mg PO BEDTIME PRN PRN Reason: Insomnia Methylprednisolone Sodium Succinate (Methylprednisolone Sod Succ 40 Mg/Ml Vial) 60 mg IVPUSH BID [facility] Last Admin: 10/17/23 20:06 Dose: 60 mg Documented By: DAVID Nicotine (Nicotine 21 Mg Patch.Td24) 21 mg TRANSDERMA DAILY [facility] Last Admin: 10/17/23 09:09 Dose: 21 mg Documented By: GONZALES Ondansetron HCl (Ondansetron Hcl 4 Mg/2 Ml Vial) 4 mg IVPUSH Q8H PRN PRN Reason: Nausea and Vomiting Sodium Chloride (0.9 % Sodium Chloride Flush 3 Ml Syringe) 3 ml IVFLUSH QSHIFT [facility] Last Admin: 10/17/23 20:07 Dose: 3 ml Documented By: DAVID Labs 10/16/23 12:23 10/16/23 12:23 Microbiology Microbiology Results: Microbiology 10/16/23 12:54 Blood Culture - Preliminary Blood - Venous No growth after 24 hours. 10/16/23 12:54 Blood Culture - Preliminary Blood - Venous No growth after 24 hours. Assessment and Plan (1) Hypoxic respiratory failure: Status: Acute (2) Chronic lung disease: Status: Acute (3) Nicotine dependence, cigarettes, uncomplicated: Status: Acute Plan 73-year-old gentleman with past medical history of essential hypertension, COPD not on home oxygen presented to [facility] with acute onset of shortness of breath cough dizziness and feeling cold after being exposed to Dust and diesel fumes. # acute hypoxic respiratory failure due to acute COPD exacerbation due to exposure to dust and diesel fumes; Persistent mild Tachypnea and tachycardia due to copd exacerbation, mild reactive leukocytosis, no sepsis Continue IV steroid increased to 60 mg q.12 hours, DuoNeb q.4 hours while awake scheduled and as needed IV azithromycin/ scheduled cough medication Claritin 10 mg daily Continues to desaturate to 83% on RA. Wean oxygen as tolerated not on home oxygen # acute lactic acidosis mild due to updraft treatment and not due to sepsis. # essential hypertension continue home medications lisinopril 10 mg daily and amlodipine 5 mg daily, follow BP. # hyperlipidemia Lipitor 20 mg at bedtime # tobacco use disorder counseling done placed on nicotine patch 21 mg daily. Full code Lovenox for DVT prophylaxis In my clinical judgment patient need continued inpatient hospital stay for supplemental oxygen, IV antibiotics and IV antibiotics treatment is not possible in a less acute setting as he is still quite dyspneic on exertion despite O2, with 83% oximetry on RA. Quality Stroke Does the patient have a stroke diagnosis?: No VTE Prior VTE?: No VTE Risk Level:: Medical - moderate - high VTE Device Contraindication: Treatment Not Indicated VTE Drug Contraindication: N/A - Med Ordered
[2023-10-18] MEDS: guaiFEN/Codeine SF 200/20/10ML 10 ML LIQUID PO ×3 (08:23→20:06)
[2023-10-18] MEDS: Nicotine 21 MG PATCH.TD24 TRANSDERMA (08:24)
[2023-10-18] MEDS: lisinopriL 10 MG TABLET PO (08:24)
[2023-10-18] MEDS: Loratadine 10 MG TABLET PO (08:24)
[2023-10-18] MEDS: 0.9 % Sodium Chloride Flush 3 ML SYRINGE IVFLUSH ×3 (08:24→20:06)
[2023-10-18] MEDS: methylPREDNISolone Sod Succ 40 MG/ML VIAL 60 MG IVPUSH ×2 (08:24→20:06)
--- NOTE | 2023-10-18 14:11 | MHC.CM.PN ---
EMR REVIEWED AND PER MD ROUNDS, PT IS NOT MEDICALLY CLEARED FOR DC. (HYPOXIA, SOB) CM WILL CONTINUE TO FOLLOW FOR ANY CHANGE IN DC NEEDS/PLAN.
[2023-10-18] MEDS: Azithromycin 500 MG in 0.9 % Sodium Chloride 250 ML 125 MG IV (14:20)
[2023-10-18] MEDS: Enoxaparin Sodium 40 MG/0.4 ML SYRINGE SUBCUT (17:18)
[2023-10-18] MEDS: amLODIPine Besylate 5 MG TABLET PO (20:05)
[2023-10-18] MEDS: Atorvastatin Calcium 20 MG TABLET PO (20:05)
[2023-10-19 03:59] VITALS: BP 150/76; PULSE 81; RESP 16; TEMP 36.4; O2SAT 92
[2023-10-19 07:23] VITALS: BP 156/79; PULSE 76; RESP 20; TEMP 36.6; O2SAT 92
[2023-10-19 07:34] VITALS: PULSE 68; RESP 20; O2SAT 98
[2023-10-19] MEDS: Albuterol/Iprat 2.5/0.5MG 3 ML AMPUL.NEB INHALE ×2 (07:34→11:12)
[2023-10-19 07:47] VITALS: BP 156/79; PULSE 78; RESP 20; TEMP 36.6; O2SAT 92
[2023-10-19] MEDS: guaiFEN/Codeine SF 200/20/10ML 10 ML LIQUID PO (08:07)
[2023-10-19 08:08] VITALS: BP 156/79
[2023-10-19] MEDS: Loratadine 10 MG TABLET PO (08:08)
[2023-10-19] MEDS: lisinopriL 10 MG TABLET PO (08:08)
[2023-10-19] MEDS: methylPREDNISolone Sod Succ 40 MG/ML VIAL 60 MG IVPUSH (08:53)
[2023-10-19] MEDS: 0.9 % Sodium Chloride Flush 3 ML SYRINGE IVFLUSH (08:55)
[2023-10-19 11:12] VITALS: PULSE 78; RESP 20; O2SAT 97
--- NOTE | 2023-10-19 12:15 | P.DS_ITS ---
DS: Providers Provider Date of Service: 10/19/23 Date of admission: 10/16/23 16:12 Primary care physician: CLAU Acevedo DS: Diagnosis Discharge Diagnosis (1) Chronic lung disease: Status: Acute (2) Nicotine dependence, cigarettes, uncomplicated: Status: Acute (3) COPD (chronic obstructive pulmonary disease): Status: Acute (4) Acute hypoxemic respiratory failure: Status: Acute DS: Summary Hospital Course Hospital Course: Admission note 73-year-old gentleman with past medical history significant for COPD not on home oxygen, essential hypertension, tobacco use disorder currently smoking 1 and half pack per day, quit for 3 months and restarted couple weeks ago, developed shortness of breath yesterday while he was 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 an old bike with diesel fumes coming from the heater in front of him with dust everywhere, he developed shortness of breath, Cough, headache, and dizziness, he denies fever, felt cold, no nausea, no vomiting, no abdominal pain, no sinus pressure since symptoms persisted and he ran out of his inhalers, he came to ER for evaluation and was noted to be hypoxic HERNANDEZ 84% on room air patient treated with multiple nebulizer treatment and IV steroid and was ambulated O2 dropped to 70s, chest x-ray showed no acute infiltrate, or recent CT lung last month showed bronchial thickening, tree-in-bud opacities right lung base seems chronic noted on chest x-ray June 2023 and no significant pulmonary nodules. Hospital course Treated for cute hypoxic respiratory failure due to acute COPD exacerbation due to exposure to dust and diesel fumes at home. Treated with IV steroid, DuoNeb q.4 hours while awake scheduled and as needed along with IV azithromycin and cough medication with good response over the course of hospital stay as he was weaned off O2 supplement and was able to maintain O2 in 90s. he still noted to drop O2 to mid-late 80s on ambulation but denies any dyspnea and recovers back to 90s at rest with no need for O2 supplement. not interested on home O2 eval or having O2 at home. He was advised total abstinence from smoking and to use protective equipments ne ar dust. Discharge Plan Continue Azithromycin and Prednisone as prescribed Restart Home inhalors as prescribed: Symbicort daily and Albuterol as needed Avoid smoking Come back to the hospital for any worsening shortness of breath or wheezing Time Attestation Discharge Coordination Time (in mins): 38 Quality: Safe Use of Opioids Does Pt have an Active Cancer Diagnosis on the Problem List?: No Quality: Stroke Does the patient have a stroke diagnosis?: No Physical Exam Vital Signs: Vital Signs: Last Vital Signs Temp 97.9 F 10/19/23 07:47 Pulse 78 10/19/23 11:12 Resp 20 10/19/23 11:12 BP 156/79 H 10/19/23 08:08 Pulse Ox 92 10/19/23 07:47 O2 Del Method Room Air 10/19/23 07:47 O2 Flow Rate 2 10/18/23 07:47 BMI result Body Mass Index 25.1 Const: Other: Constitutional : Awake, interactive, not in distress Neck : Normal inspection, Supple Cardiovascular : RRR, no JVP, no lower extremity edema Respiratory : fair bilateral air entry, no crackles, no wheezes ,, on RA Gastrointestinal: soft, lax, Normal bowel sounds, Non tender Skin : Warm, Dry Neurological : Alert & oriented x3, No focal deficit DS: Data Data Completed and Pending Labs on day of discharge: Preliminary micro results at discharge 10/16/23 12:54 Blood Culture - Preliminary Blood - Venous No growth after 48 hours. 10/16/23 12:54 Blood Culture - Preliminary Blood - Venous No growth after 48 hours. Imaging Chest x-ray: Radiologist's impression: ITS Impressions Chest X-Ray 10/16/23 12:37 IMPRESSION: Well inflated lungs. No evidence of pneumonia. Discharge Plan Discharge Anticipated Discharge Date/Time: 10/19/23 12:08 Patient Disposition: Home, Self-Care Discharge Diagnosis: COPD Exacerbation Referrals: Luis Alfredo Feldman FNP [Primary Care Provider] - 1 Week Discharge Medications: New nicotine 21 mg/24 hr Patch 24 Hour 21 mg transdermal DAILY Qty: 28 2RF prednisone 20 mg tablet 40 mg PO DAILY Qty: 10 0RF azithromycin 250 mg tablet 250 mg PO DAILY 3 Days Qty: 3 0RF budesonide-formoterol [Symbicort] 80-4.5 mcg/actuation HFA aerosol inhaler 1 puff inhalation BID Qty: 10.2 0RF Continued lisinopril 10 mg tablet 10 mg PO DAILY Qty: 90 0RF ascorbic acid (vitamin C) 500 mg Tablet 500 mg PO DAILY amlodipine 5 mg tablet 5 mg PO BEDTIME Protocol: Hold for SBP< HOLD for SBP < : 90 cholecalciferol (vitamin D3) 25 mcg (1,000 unit) Tablet 25 mcg PO DAILY albuterol sulfate 90 mcg/actuation HFA aerosol inhaler 2 puff inhalation Q4H PRN (Reason: Shortness Of Breath Or Wheezing) Qty: 8.5 1RF atorvastatin 20 mg tablet 20 mg PO BEDTIME Qty: 90 0RF Discharge Orders: Discharge Order (Routine); Ordered 10/19/23 Ordered By: Flor Garay Diet: Advance to usual diet Activity on Discharge: As tolerated Stand Alone Forms: Patient Portal Discharge page Print Language: Kittitian Care Plan Goals: Read below Health Concerns: Read below Plan of Treatment: Read below Assessment: You were treated for COPD exacerbation with steroids, antibiotics, nebulizers and Oxygen with good response over the course of hospital stay. Continue Azithromycin and Prednisone as prescribed Restart Home inhalors as prescribed: Symbicort daily and Albuterol as needed Avoid smoking Come back to the hospital for any worsening shortness of breath or wheezing Discharge Date/Time: 10/19/23 13:25
--- NOTE | 2023-10-19 14:06 | MHC.CM.PN ---
pt medically cleared for dc home self care, pt has arranged his own transport
--- NOTE | 2023-10-21 17:16 | P.CDIM_ITS ---
PROVIDER RESPONSE TEXT: To clarify, the appropriate diagnosis supported by the clinical indicators: Acute lactic acidosis: . QUERY TEXT: PHYSICIAN'S DOCUMENTATION REQUEST Date of Query: 10/17/2023 08:19 AM EDT Patient Name: Alli Sanchez Admit Date: 10/16/2023 Dear Balbina aTpia, A review of the medical record indicates additional documentation may be needed. Please review below and update the documentation accordingly. Clinical Indicators: LAB FINDINGS: lactic acidosis 2.1 2.8 H Based on the above, is there a diagnosis that correlates with these lab findings: Acute lactic acidosis possible, suspected, probable Labs indicate a diagnosis of (please specify) Other (explain) Clinically unable to determine (explain) Thank you, Sophia Morales, CCS, CDIS Use of terms such as suspected, likely, concern for, or probable (associated with a specific diagnosi s that is being evaluated, monitored, or treated as if it exists) are acceptable and can be coded in the inpatient se tting, when documented at the time of discharge. Please use your independent medical judgment in providing your response. THIS QUERY IS PART OF THE PERMANENT MEDICAL RECORD
== END 2023-10-19 13:25 | disposition home or self-care (01) | DRG 190 ==
LOC: HO.ED 14:59 → HO.EDOVER 16:25 → HO.S3 10-17 04:06
PROVIDERS: Internal Medicine; Physician Assistant; Admitting Provider Hospitalist; Emergency Provider Emergency Medicine; PCP Nurse Practitioner Primary Care; Visit Provider Student in an Organized Health Care Education/Training Program
DX: J44.1 Chronic obstructive pulmonary disease with (acute) exacerbation (principal); J96.01 Acute respiratory failure with hypoxia; E87.21 Acute metabolic acidosis; E78.5 Hyperlipidemia, unspecified; F17.210 Nicotine dependence, cigarettes, uncomplicated; Z71.6 Tobacco abuse counseling; Z20.822 Contact with and (suspected) exposure to COVID-19; Z79.899 Other long term (current) drug therapy
CPT/HCPCS: 0241U; 36415; 71045; 80053; 82803; 83605; 83735; 83880; 84484; 85025; 85610; 87040; 93005; 94640; 99285; J0456; J0696; J1650; J2919; J3475

== ENCOUNTER → 2023-10-16 12:07 | Outpatient (BNV) | payer MEDICARE, SELFPAY | PROVIDERS: Admitting Provider Hospitalist; Emergency Provider Emergency Medicine; PCP Nurse Practitioner Primary Care; Visit Provider Internal Medicine Cardiovascular Disease | DX: R06.02 Shortness of breath (principal); R00.0 Tachycardia, unspecified | CPT/HCPCS: 93010 ==

== ENCOUNTER → 2023-10-16 16:12 | Outpatient (BNV) | payer MEDICARE, SELFPAY | PROVIDERS: Admitting Provider Hospitalist; Emergency Provider Emergency Medicine; PCP Nurse Practitioner Primary Care; Visit Provider Hospitalist | DX: J96.01 Acute respiratory failure with hypoxia (principal); J44.9 Chronic obstructive pulmonary disease, unspecified; J98.4 Other disorders of lung; F17.210 Nicotine dependence, cigarettes, uncomplicated | CPT/HCPCS: 99223; 99232; 99233; 99239 ==

== ENCOUNTER 2023-10-21 10:02 | Outpatient (AMB) | payer MEDICARE, SELFPAY ==
[2023-10-21 10:08] VITALS: BP 140/80; PULSE 78; O2SAT 90; BMI 22.7
--- NOTE | 2023-10-21 10:08 | MHC.PC.OV ---
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 Functional Testing Required: No Accompanied by: Self / Same As Patient Allergies No Known Allergies Allergy (Verified 10/21/23 10:27) Medication List - Last Reconciled 10/21/23 by CLAU Acevedo albuterol sulfate 90 mcg/actuation 2 puffs inhalation Q4H PRN amlodipine 5 mg PO DAILY ascorbic acid (vitamin C) 500 mg PO DAILY atorvastatin 20 mg PO BEDTIME budesonide-formoterol 160-4.5 mcg/actuation (Symbicort) 2 puffs inhalation Q12H cholecalciferol (vitamin D3) 25 mcg PO DAILY lisinopril 10 mg PO DAILY nicotine 21 mg transdermal DAILY prednisone 40 mg (2 x 20 mg) PO DAILY Tobacco use date assessed: 08/26/23 Fall risk assessment: No Falls in past year Last assessed Fall Risk: 07/24/23 Dental Screening Dental Screen Date: 07/24/23 Did you have a dental visit in the last 12 months?: Yes Did you have a dental problem in the last 6 months where you did not have access to dental care?: No Was dental information given to patient?: Yes HPI HPI Comments History of Present Illness Details Patient is a 73-year-old male in today for hospital discharge follow-up. He was recently admitted for acute respiratory failure, oxygen saturation in the low 80s in presentation to the emergency room. This was due to recent exposure to fumes. Patient states he had run out of his inhalers both his albuterol and his Symbicort. He also states that he has started smoking cigarettes again. While in the hospital patient was given nebulizer treatments, Solu-Medrol, azithromycin. Patient has stop smoking cigarettes. Will refill Symbicort inhaler. Patient's last albuterol treatment 4 hours prior to this appointment. Will give a nebulizer treatment in office today. Patient's oxygen saturation in office today 90%, post albuterol treatment 94%. Patient has been instructed to continue taking the inhalers as prescribed. Patient also advised to make follow-up appointment with pulmonology, and to continue taking oxygen saturation measurements throughout the day. [facility] Medical History Hepatitis C Compressed cervical disc Former tobacco use COPD (chronic obstructive pulmonary disease) Essential hypertension Surgical History H/O carpal tunnel repair Family History Maternal Grandfather Leukemia Social History Household Members: None Housing: House Patient Tobacco Use Status: Former Tobacco user Tobacco use type: Cigarette Cigarettes Per Day: 20 Years Smoked: 50 service: No Cognitive needs: No Hearing needs: No Vision needs: Yes Questionnaire Thrive Questionnaire Date Thrive assessed: 10/17/23 ABEBE-7 AMB Questionnaire ABEBE-7 Date ABEBE - 7 assessed: 07/24/23 Source: Developed by Drs. Acosta Lassiter, Eleanor Alfaro, Kelvin Islas and colleagues, with an educational ted from [employer]. Review of Systems Const Details: Constitutional : No Weight loss, No Fever, No Chills, No Fatigue, No Malaise ENT/Mouth : No sore throat, No Rhinorrhea Eyes: No Eye Pain, No Swelling, No Redness Cardiovascular : No Chest Pain, No SOB, Admits some Dyspnea on Exertion, No Orthopnea, No Edema, No Palpitations Respiratory : Admits Cough, Admits Sputum, Admits Wheezing Gastrointestinal : No Nausea, No Vomiting, No Diarrhea, No Constipation, No abdominal Pain, No Hematochezia, No Melena Neuro : No Weakness, No Numbness, No Dizziness, No Headache Psych : No Anxiety/Panic, No Depression All other systems reviewed and are negative All systems reviewed & are unremarkable except as noted in HPI and below Physical exam (Primary Care) Vital Signs: Last Vital Signs Pulse 78 10/21/23 10:08 BP 140/80 H 10/21/23 10:08 Pulse Ox 90 L 10/21/23 10:08 Oxygen Delivery Method Room Air 10/21/23 10:08 Care Plan Goal for BP management: Patient instructed to take 20 mg lisinopril p.o. in the morning. Record results. Get back to the office in 1 week BMI result Body Mass Index 22.7 Tobacco/Smoking Status: Tobacco use Status Tobacco use date assessed 08/26/23 10/21/23 10:09 Patient Tobacco Use Status Former Tobacco user 10/21/23 10:09 Tobacco use type Cigarette 10/21/23 10:09 Thrive Assessment: Date of Thrive Assessment Date Thrive assessed 10/17/23 10/21/23 10:09 Const Other: Appearance: Alert.? Oriented X3.? No acute distress.? Head: Normocephalic, atraumatic, ENT: Pharynx normal.? Neck: Normal inspection.? Neck supple.? CVS: Normal heart rate and rhythm.? Pulses normal.? Respiratory: No respiratory distress.? Breath sounds diminished bilaterally. Wheeze of upper lobes bilaterally. Neuro: Oriented X 3.? No motor deficit.? No sensory deficit. CN 2-12 intact Breath sounds improved post in office nebulizer treatment. Office Procedures Nebulizer Treatment Nebulizer Treatment [id number]/MDI RX initial, or Nebulizer Subsequent Treatment Office Meds ipratropium 0.5 mg-albuterol 3 mg (2.5 mg base)/3 mL nebulization soln Performing Provider: CLAU Acevedo Performing Location: [facility] Administered by: CLAU Acevedo on 10/21/23 10:41 Dose Route Admin Location Dispensed Lot Number Expiration Date [employer] 3 mL inhalation 3 mL [id number] 03/24/24 77327-133-59 [employer] Assessment and Plan Assessment & Plan (1) COPD (chronic obstructive pulmonary disease): Comment: Patient has been instructed to take his Symbicort and albuterol inhalers as prescribed. He also is currently taking azithromycin and prednisone that he was given at hospital discharge. Patient has been instructed to take oxygen saturation measurements throughout the day. Has been educated on signs of worsening symptoms and when to report back to the office or when to present to the ED. Code(s): J44.9 - Chronic obstructive pulmonary disease, unspecified Qualifiers: COPD type: unspecified COPD Qualified Code(s): J44.9 - Chronic obstructive pulmonary disease, unspecified Plan: Take your medications as prescribed. If you were prescribed antibiotics today, it is important that you take your medication to their entirety, do not skip any doses, do not finish them early. Follow-up with your primary care provider this week. Return to the emergency department with new or worsening symptoms. Such as fevers, chills, chest pain, shortness of breath, nausea, vomiting, dizziness, headache, vision changes, lethargy In case of emergency call 911 Plan Patient will follow-up in 1 month. Patient also advised to follow-up with pulmonary. Orders: Orders AMB Nebulizer Treatment Today J44.9 - Chronic obstructive pulmonary disease, unspecified Medications: New budesonide-formoterol 160-4.5 mcg/actuation (Symbicort) 2 puffs inhalation Q12H 10.2 grams 0RF Discontinued budesonide-formoterol 80-4.5 mcg/actuation (Symbicort) Discontinued Reason: Doctor's Order 1 puff inhalation BID 10.2 grams 0RF Coding Level of Care Code Est Pt Level 3 (31732) Diagnoses Chronic obstructive pulmonary disease, unspecified COPD type J44.9 COPD type: unspecified COPD CPT Codes Nebulizer Treatment - Nebulizer Treatment, initial or subsequent: [id number]/MDI RX initial, or Nebulizer Subsequent Treatment ([id number]) Time Spent (min) 35
== END 2023-10-21 11:25 | disposition home or self-care (01) ==
PROVIDERS: PCP Nurse Practitioner Primary Care; Visit Provider Nurse Practitioner Primary Care
DX: J44.9 Chronic obstructive pulmonary disease, unspecified (principal)
CPT/HCPCS: 94640; 99213; J7620

== ENCOUNTER 2023-11-25 10:26 | Outpatient (AMB) | payer MEDICARE, SELFPAY ==
[2023-11-25 10:33] VITALS: BP 132/84; PULSE 72; O2SAT 93; BMI 23.3
--- NOTE | 2023-11-25 10:33 | A.OFFPC_ITS ---
Vital Signs 11/25/23 10:33 Height 5 ft 11 in Weight 167 lb BMI 23.3 BP 132/84 Blood Pressure Location Lt brachial Position Sitting Pulse 72 Pulse Source Pulse Oximeter Pulse Oximetry (%) 93 Oxygen Delivery Method Room Air Intake Visit Reasons: HTN/Med Check F/U Intake Note: pt is here for f/u HTN and med review Accompanied by: Self / Same As Patient Allergies No Known Allergies Allergy (Verified 11/25/23 11:03) Medication List - Last Reconciled 11/25/23 by CLAU Acevedo albuterol sulfate 90 mcg/actuation 2 puffs inhalation Q4H PRN amlodipine 5 mg PO DAILY ascorbic acid (vitamin C) 500 mg PO DAILY atorvastatin 20 mg PO BEDTIME cholecalciferol (vitamin D3) 25 mcg PO DAILY lisinopril 10 mg PO DAILY prednisone 40 mg (2 x 20 mg) PO DAILY Tobacco use date assessed: 11/25/23 Dental Screening Dental Screen Date: 11/25/23 Did you have a dental visit in the last 12 months?: No Did you have a dental problem in the last 6 months where you did not have access to dental care?: No Was dental information given to patient?: No HPI HPI Comments History of Present Illness Details Patient is a 73 year old male in for a BP recheck. Patient states that he has been checking his blood pressure at home, values are similar to today's BP measurement, states that blood pressure tends to near 120/80 in the early afternoon and evening. Patient denies any episodes of dizziness, chest pain, numbness, shortness a breath. Patient will continue on current regimen and will come back to the office in 2 weeks for blood pressure recheck in the morning. Patient does also have complaints of acute on chronic lower back pain. Patient denies tingling or numbness down bilateral extremities. Denies saddle numbness. Patient has long history of chronic back pain. Will order lumbar x-ray today. Patient has not yet started his Symbicort inhaler, has been advised to start at the appointment today. Has also been advised to follow-up with pulmonary medicine and cardiology. Will draw labs. [facility] Medical History (Updated 11/25/23 @ 13:03 by CLUA Acevedo) Essential hypertension Chronic lung disease Nicotine dependence, cigarettes, uncomplicated Hepatitis C Compressed cervical disc Former tobacco use COPD (chronic obstructive pulmonary disease) Surgical History H/O carpal tunnel repair Family History Maternal Grandfather Leukemia Social History Household Members: None Housing: House Patient Tobacco Use Status: Former Tobacco user Tobacco use type: Cigarette Cigarettes Per Day: 20 Years Smoked: 50 e-Cigarette/Vaping Use: Never Used service: No Cognitive needs: No Hearing needs: No Vision needs: Yes Questionnaire PHQ-9 Over the last 2 weeks, how often have you been bothered by any of the following problems? 1. Little interest or pleasure in doing things: not at all 3. Trouble falling or staying asleep, or sleeping too much: several days 4. Feeling tired or having little energy: several days 5. Poor appetite or overeating: several days 6. Feeling bad about yourself - or that you are a failure or have let yourself or your family down: not at all 7. Trouble concentrating on things, such as reading the newspaper or watching television: several days 8. Moving or speaking so slowly that other people could have noticed. Or the opposite - being so fidgety or restless that you have been moving around a lot more than usual: not at all 9. Thoughts that you would be better off or of hurting yourself in some way: not at all Depression Screening Interpretation: Negative Depression Screening Done: Yes 10421 - PHQ-9 Billing: Yes Source: Developed by Drs. Acosta Lassiter, Eleanor Alfaro, Kelvin Islas and colleagues, with an educational ted from [employer]. Thrive Questionnaire Date Thrive assessed: 10/17/23 AUDIT C Alcohol Use Questionnaire (AUDIT-C) 1. How often do you have a drink containing alcohol?: Never 3. How often do you have six or more drinks on one occasion?: Never Total Score: 0 ABEBE-7 AMB Questionnaire ABEBE-7 Date ABEBE - 7 assessed: 07/24/23 Worrying too much about different things: 1 = Several days Being so restless that it is hard to sit still: 1 = Several days Source: Developed by Drs. Acosta Lassiter, Eleanor Alfaro, Kelvin Islas and colleagues, with an educational ted from [employer]. ABEBE-7 Assessment Billing ABEBE-7 Assessment Tool: ABEBE-7 Assessment 04896 Review of Systems Const All systems reviewed & are unremarkable except as noted in HPI and below Denies chills and Denies fever(s) Physical exam (Primary Care) Vital Signs: Last Vital Signs Pulse 72 11/25/23 10:33 BP 132/84 11/25/23 10:33 Pulse Ox 93 11/25/23 10:33 Oxygen Delivery Method Room Air 11/25/23 10:33 Care Plan Goal for BP management: Patient will continue to take BP measurements at home. Next steps: Follow up with nurse navigator in 2 weeks. BMI result Body Mass Index 23.3 Tobacco/Smoking Status: Tobacco use Status Tobacco use date assessed 11/25/23 11/25/23 10:40 Patient Tobacco Use Status Former Tobacco user 11/25/23 10:40 Tobacco use type Cigarette 11/25/23 10:40 e-Cigarette/Vaping Use Never Used 11/25/23 10:40 Depression Screening Interpretation: Negative Thrive Assessment: Date of Thrive Assessment Date Thrive assessed 10/17/23 11/25/23 10:40 Const Other: Appearance: Alert.? Oriented X3.? No acute distress.? Head: Normocephalic. Eyes: Sclera white. Neck: Normal inspection.? Neck supple.? CVS: Normal heart rate and rhythm.? Pulses normal.? Respiratory: No respiratory distress.? Breath sounds diminished bilaterally. ? Abdomen: Soft and nontender.? Skin: Skin warm and dry.? ? Extremities: Scant lower extremity edema LE bilaterally. Neuro: Oriented X 3.? No motor deficit.? Assessment and Plan Assessment & Plan (1) COPD (chronic obstructive pulmonary disease): Comment: Patient has been instructed to take his Symbicort and albuterol inhalers as prescribed. Patient has been instructed to take oxygen saturation measurements throughout the day. Has been educated on signs of worsening symptoms and when to report back to the office or when to present to the ED. He has been instructed to follow up with Pulmonology. Code(s): J44.9 - Chronic obstructive pulmonary disease, unspecified Qualifiers: COPD type: unspecified COPD Qualified Code(s): J44.9 - Chronic o bstructive pulmonary disease, unspecified (2) Essential hypertension: Comment: Patient has been instructed to change his medication regiment. He will take his lisinopril in the morning, will take amlodipine at night. He will continue to take blood pressure measurements at home. Will have BP recheck in 2 weeks. Code(s): I10 - Essential (primary) hypertension Plan: draw labs (3) Lumbar pain: Comment: Will obtain lumbar X-ray. Code(s): M54.50 - Low back pain, unspecified Plan Follow up in 2 weeks. Orders: Orders Comprehensive Met. Panel Today Z91.89 - Other specified personal risk factors, not elsewhere classified XR lumbar spine 2-3V Today M54.50 - Low back pain, unspecified Complete Blood Count Auto Diff Today Z13.0 - Encounter for screening for diseases of the blood and blood-forming organs and certain disorders involving the immune mechanism B Type Natriuretic Peptide Today R60.0 - Localized edema Medications: New budesonide-formoterol 160-4.5 mcg/actuation (Symbicort) 2 puffs inhalation BID 10.2 grams 0RF Coding Level of Care Code Est Pt Level 4 (98793) Diagnoses Chronic obstructive pulmonary disease, unspecified COPD type J44.9 COPD type: unspecified COPD Essential hypertension I10 Lumbar pain M54.50 Additional Codes ABEBE-7 Assessment Billing - ABEBE-7 Assessment Tool: ABEBE-7 Assessment 27672 ([id number]) Time Spent (min) 32
== END 2023-11-25 11:47 | disposition home or self-care (01) ==
PROVIDERS: PCP Nurse Practitioner Primary Care; Visit Provider Nurse Practitioner Primary Care
DX: J44.9 Chronic obstructive pulmonary disease, unspecified (principal); I10 Essential (primary) hypertension; M54.50 Low back pain, unspecified
CPT/HCPCS: 99214

== ENCOUNTER 2023-11-25 11:28 | Outpatient (REF) | payer MEDICARE, SELFPAY ==
--- NOTE | ~2023-11-25 | XR_ITS ---
EXAMINATION: XR LUMBOSACRAL SPINE CLINICAL INFORMATION: Low back pain, unspecified COMPARISON: None available. TECHNIQUE: Three views of the lumbosacral spine. FINDINGS: There is straightening of the usual lumbar lordosis which can be seen with muscle spasm. There are 5 nonrib-bearing lumbar-type vertebral bodies. The height of vertebral bodies is well-maintained. There is mild disc space narrowing at L2-L3, L3-L4 and L4-L5. There is question of L5 spondylolysis. There is mild retrolisthesis of L4 with respect to L5 and retrolisthesis of L3 respect to L4. There is grade 1 anterolisthesis of L5 with respect to S1. There is multilevel degenerative facet joint disease. The mid abdominal aorta measures 2.75 cm. XR/XR lumbar spine 2-3V IMPRESSION: 1. Muscle spasm. 2. Multilevel degenerative disc disease and degenerative facet joint disease. 3. Question of L5 spondylolysis. CT scan or MRI scan could be obtained for further evaluation. 4. Multilevel spondylolisthesis. 5. The mid abdominal aorta measures 2.75 cm. Abdominal ultrasound could be obtained for further evaluation.
[2023-11-25 13:23] LABS: MANUAL DIFF FLAG NO
[2023-11-25 13:41] LABS: Basophils Absolute Auto 0.1 X10*3/uL (0.0-0.2); Basophils Percent Auto 1.1 % (0-2); Eosinophils Absolute Auto 0.1 X10*3/uL (0.0-0.4); Eosinophils Percent Auto 1.7 % (0-4); Hemoglobin 14.7 g/dl (14.0-18.0); Imm Gran Abs Auto 0.03 X10*3/uL (0.00-0.03); Imm Gran Pct Auto 0.4 % (0.0-0.4); Lymphocytes Absolute Auto 1.7 X10*3/uL (1.2-4.9); Mean Corpuscular HGB Conc 33.4 g/dl (31.0-36.0); Mean Corpuscular Hemoglobin 30.3 pg (27.0-33.0); Mean Corpuscular Volume 90.7 fL (80.0-98.0); Mean Platelet Volume 9.2 fL (9.4-12.4); Monocytes Absolute Auto 0.8 X10*3/uL (0.1-1.2); Monocytes Percent Auto 10.5 % (2-11); Neutrophils Absolute Auto 5.1 x10*3/uL (2.0-8.3); Neutrophils Percent Auto 65.3 % (45-73); Platelet Count 304 X10*3/uL (160-400); Red Blood Count 4.85 X10*6/uL (4.60-5.80); Red Cell Distribution Width 13.2 % (11.0-16.0); White Blood Count 7.8 X10*3/uL (4.8-10.8)
[2023-11-25 13:57] LABS: Alanine Aminotransferase 10 U/L (0-40); Albumin Level 4.3 g/dL (3.5-5.0); Alkaline Phosphatase 70 U/L (39-117); Anion Gap 13 (12-20); Aspartate Amino Transferase 16 U/L (5-37); Bilirubin Total 0.5 mg/dL (0.0-1.0); Blood Urea Nitrogen 14 mg/dL (9-16); Calcium 9.9 mg/dL (8.4-10.2); Carbon Dioxide 29 mmol/L (22-29); Chloride 104 mmol/L (96-108); Cholesterol 139 mg/dL (<200); Estimated Glomerular Filt Rate > 60; Glucose Random 99 mg/dL (60-115); HDL Cholesterol 53 mg/dL (>40); LDL Cholesterol Calculated 73 mg/dL (<100); Potassium 3.9 mmol/L (3.3-5.1); Sodium 142 mmol/L (135-145); Triglycerides 66 mg/dL (<150)
[2023-11-25 13:58] LABS: B Type Natriuretic Peptide 21 pg/mL (<100)
== END 2023-11-25 11:29 | disposition home or self-care (01) ==
LOC: HO.HMGCX 11:28
PROVIDERS: PCP Nurse Practitioner Primary Care; Visit Provider Nurse Practitioner Primary Care
DX: M54.50 Low back pain, unspecified (principal); R60.0 Localized edema; Z91.89 Other specified personal risk factors, not elsewhere classified; Z13.220 Encounter for screening for lipoid disorders; Z13.0 Encounter for screening for diseases of the blood and blood-forming organs and certain disorders involving the immune mechanism
CPT/HCPCS: 36415; 72100; 80053; 80061; 83880; 85025

== ENCOUNTER 2024-03-30 10:01 | Outpatient (REF) | payer MEDICARE, SELFPAY ==
--- NOTE | ~2024-03-30 | US_ITS ---
EXAMINATION: US RETROPERITONEAL LIMITED (AORTA) CLINICAL INFORMATION: Encounter for screening for cardiovascular disorders. Former tobacco user. COMPARISON: None available. TECHNIQUE: Cervantes-scale, color Doppler and spectral Doppler evaluation of the abdominal aorta. FINDINGS: Mild aortic calcification. The measurements of the aorta in maximum AP and transverse dimensions respectively are as follows: Proximal: 3.2 x 3.2 cm. Mid: 2.3 x 2.2 cm. Distal: 2.1 x 2.0 cm. PSV: 47 cm/s. The measurements of the common iliac arteries in maximum AP dimension are as follows: Right: AP: 1.3 cm. TRV: 1.2 cm. Left: AP: 1.3 cm. TRV: 1.3 cm. 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 Infrarenal Aortic Diameter (cm) RECOMMENDED FOLLOW-UP 3.0 cm to 3.4 cm Every 3 years AAA BPRs based on ACR White paper: J Am Austin Radiol 2013;10 (10):789-794. (Available on [employer]) Electronically signed by: Brianna Tran MD 05/10/2024 06:40 PM EST
== END 2024-03-30 10:02 | disposition home or self-care (01) ==
LOC: HO.HMGCX 10:01
PROVIDERS: PCP Nurse Practitioner Family; Visit Provider Nurse Practitioner Family
DX: J44.9 Chronic obstructive pulmonary disease, unspecified (principal); Z87.891 Personal history of nicotine dependence
CPT/HCPCS: 76775

== ENCOUNTER 2024-07-02 12:23 | Outpatient (AMB) | payer MEDICARE, SELFPAY ==
[2024-07-02 12:26] VITALS: BP 134/76; PULSE 72; O2SAT 95; BMI 23.1
--- NOTE | 2024-07-02 12:26 | A.OFFPC_ITS ---
Vital Signs 07/02/24 12:26 Height 5 ft 11 in Weight 166 lb BMI 23.1 BP 134/76 Blood Pressure Location Rt brachial Position Sitting Pulse 72 Pulse Source Pulse Oximeter Pulse Oximetry (%) 95 Oxygen Delivery Method Room Air Intake Visit Reasons: transfer from [facility] Intake Note: Pt is here today for a Transfer of Care visit from [facility]. Allergies No Known Allergies Allergy (Verified 07/02/24 12:28) Medication List - Last Reconciled 07/02/24 by ALBERTO Kim albuterol sulfate 90 mcg/actuation 2 puffs inhalation Q4H PRN amlodipine 5 mg PO DAILY ascorbic acid (vitamin C) 500 mg PO DAILY atorvastatin 20 mg PO BEDTIME cholecalciferol (vitamin D3) 25 mcg PO DAILY lisinopril 10 mg PO DAILY Tobacco use date assessed: 07/02/24 Fall risk assessment: No Falls in past year Last assessed Fall Risk: 07/02/24 Dental Screening Dental Screen Date: 07/02/24 Did you have a dental visit in the last 12 months?: No Did you have a dental problem in the last 6 months where you did not have access to dental care?: No Was dental information given to patient?: Patient declined HPI transfer from [facility] Details Chief Complaint The patient is here for a follow-up regarding hypertension management. History of Present Illness The patient is a 74-year-old male presenting with a follow-up for hypertension and known Chronic Obstructive Pulmonary Disease (COPD). He has a documented history of COPD and continues to smoke cigarettes, which contributes to his respiratory condition. The patient's hypertension has been stable, and he denies any acute symptoms such as increased shortness of breath, chest pain, headaches, or blurred vision. He has been undergoing routine low-dose computed tomography (CT) scans as part of his COPD management. The patient underwent a colonoscopy approximately six years ago, reporting negative findings, and denies any family history of colon cancer. There is no reported history of prostate carcinoma, and the patient declined a digital rectal examination during this visit. The patient also notes smoking tobacco, which is pertinent to his COPD. Refused vaccinations Social History - Continues to smoke cigarettes. Health Maintenance - Routine low-dose CT scans for COPD alie veillance. - Colonoscopy approximately six years ag o with negative findings. - Declined digital rectal examination to day. - Denies family history of colon cancer and prostate carcinoma. Review of Systems - Cardiovascular: Denies chest pain. - Respiratory: Denies increased shortnes s of breath. - Neurological: Denies headaches, denies blurred vision. Physical Exam General: Cooperative, healthy appearing, comfortable, no acute distress and well developed Orientation: Patient oriented x3 Limitations: No limitations Head: Normal to inspection Ears: Hearing grossly normal bilaterally Nose: Normal external nose present Face and sinus: Normal facial exam Eyes: Appearance normal, both eyes and all related structures Neck: Normal visual inspection and Yes full ROM Respiratory: Diminished lungs throughout, coarse rhronchi noted Cardiovascular: Regular rate and rhythm. Normal S1 and S2. Faint systolic murmur in the aortic region GI: Normal to inspection. Soft to palpation and nontender Skin: No rashes or lesions noted Neuro: Patient oriented x3 Extremities: Normal to inspection. No edema noted Results Plan - Essential Hypertension: Continue monit oring blood pressure. Will obtain laboratory tests to assess kidney and liver function, blood counts, and thyroid function. - COPD: Refer patient to a [employer] for further management. Arrange pulmonary function testing PFT) to evaluate current respiratory status. - Heart Murmur: Schedule an echocardiogr am to assess the faint systolic murmur detected in the aortic region. - Prostate Cancer Screening: Obtain a pr ostate-specific antigen PSA) test. Patient was informed and verbally consented to the use of an ambient scribe for clinic note documentation during this visit. Discussion Notes I discussed with the patient the importance of follow-up care for his hypertension and COPD. We reviewed the need for laboratory evaluations to ensure comprehensive monitoring of his health, including kidney and liver function tests, blood counts, and thyroid function tests. I explained the rationale for referring him to a [employer] and scheduling pulmonary function tests to better understand his current respiratory status. I also discussed the plan to obtain an echocardiogram to evaluate the heart murmur detected during the examination. Regarding prostate screening, we agreed on obtaining a PSA test. The patient was informed about the implications of his current smoking habits on COPD, and I encouraged consideration of smoking cessation options. Patient Instructions - Continue taking prescribed medications for hypertension as directed. - Attend scheduled laboratory tests for further health evaluation. - Follow up with the [employer] for C OPD management and pulmonary function testing. - Be prepared for the echocardiogram samir ointment to assess heart murmur. - Schedule an appointment for the PSA te st as discussed. - Consider discussing smoking cessation options during future visits. [facility] Medical History (Updated 07/02/24 @ 13:15 by King Peñaloza [facility]) Essential hypertension Chronic lung disease Nicotine dependence, cigarettes, uncomplicated Hepatitis C Compressed cervical disc Former tobacco use COPD (chronic obstructive pulmonary disease) Surgical History H/O carpal tunnel repair Family History (Updated 07/02/24 @ 12:33 by FERNANDO Vergara) Maternal Grandfather Leukemia Father Hypertension Mother No problems noted. Social History Household Members: None Housing: House Patient Tobacco Use Status: Current someday Tobacco user Tobacco use type: Cigarette Cigarettes Per Day: 20 Years Smoked: 50 e-Cigarette/Vaping Use: Never Used service: No Current occupational status: employed and retired Cognitive needs: No Hearing needs: No Vision needs: Yes Questionnaire PHQ-9 Over the last 2 weeks, how often have you been bothered by any of the following problems? 1. Little interest or pleasure in doing things: not at all 2. Feeling down, depressed, or hopeless: not at all 3. Trouble falling or staying asleep, or sleeping too much: several days 4. Feeling tired or having little energy: several days 5. Poor appetite or overeating: not at all 6. Feeling bad about yourself - or that you are a failure or have let yourself or your family down: not at all 7. Trouble concentrating on things, such as reading the newspaper or watching television: not at all 8. Moving or speaking so slowly that other people could have noticed. Or the opposite - being so fidgety or restless that you have been moving around a lot more than usual: not at all 9. Thoughts that you would be better off or of hurting yourself in some way: not at all Total score: 2 Depression Screening Interpretation: Negative Depression Screening Done: Yes 16038 - PHQ-9 Billing: Yes Source: Developed by Drs. Acosta Lassiter, Eleanor Alfaro, Kelvin Islas and colleagues, with an educational ted from [employer]. Thrive Questionnaire Date Thrive assessed: 07/02/24 I am a: Patient What is your living situation today?: I have a steady place to live Within the past 12 months, did the food you bought not last and you didn't have the money to get more?: Never true Within the past 12 months, did you worry whether your food would run out before you got money to buy more?: Never true Do you have trouble paying for medicines?: Yes Do you have trouble getting transportation to medical appointments?: No Do you have trouble paying your heating and electricity bill?: No Do you have trouble taking care of your child, family member or friend?: No Do you have trouble with day-to-day activities such as bathing, preparing meals, shopping, managing finances, etc.?: No Are you currently unemployed and looking for a job?: No Are you interested in more education?: No Please select the resources that you would like help with: None Currently or been in a relationship where the following occur: I choose not to answer THRIVE Score: 0 AUDIT C Alcohol Use Questionnaire (AUDIT-C) 1. How often do you have a drink containing alcohol?: Never 3. How often do you have six or more drinks on one occasion?: Never Total Score: 0 ABEBE-7 AMB Questionnaire ABEBE-7 Date ABEBE - 7 assessed: 07/02/24 Feeling nervous, anxious, or on edge: 0 = Not at all Not being able to stop or control worryin = Not at all Worrying too much about different things: 0 = Not at all Trouble relaxin = Not at all Being so restless that it is hard to sit still: 0 = Not at all Becoming easily annoyed or irritable: 0 = Not at all Feeling afraid as if something awful might happen: 0 = Not at all Total ABEBE-7 score (0-4 normal; 5-9 mild; 10-14 moderate; 15-21 severe): 0 Source: Developed by Drs. Acosta Lassiter, Kelvin Bhatti and colleagues, with an educational ted from [employer]. ABEBE-7 Assessment Billing ABEBE-7 Assessment Tool: ABEBE-7 Assessment 08228 Physical exam (Primary Care) Vital Signs: Last Vital Signs Pulse 72 07/02/24 12:26 BP 134/76 07/02/24 12:26 Pulse Ox 95 07/02/24 12:26 Oxygen Delivery Method Room Air 07/02/24 12:26 BMI result Body Mass Index 23.1 Tobacco/Smoking Status: Tobacco use Status Tobacco use date assessed 07/02/24 07/02/24 12:34 Patient Tobacco Use Status Current someday Tobacco 07/02/24 12:34 Tobacco use type Cigarette 07/02/24 12:26 e-Cigarette/Vaping Use Never Used 07/02/24 12:26 PHQ-9: PHQ-9 Score PHQ-9: Total score 2 07/02/24 12:34 Depression Screening Interpretation: Negative Thrive Assessment: Date of Thrive Assessment Date Thrive assessed 07/02/24 07/02/24 12:34 Currently or been in a relationship where the following occur: I choose not to answer Coding Level of Care Code Est Pt Level 3 (76513) Diagnoses Essential hypertension I10 Screening for prostate cancer Z12.5 Chronic obstructive pulmonary disease, unspecified COPD type J44.9 COPD type: unspecified COPD Systolic murmur R01.1 Additional Codes ABEBE-7 Assessment Billing - ABEBE-7 Assessment Tool: ABEBE-7 Assessment 03274 ([id number]) PHQ-9 - 72817 - PHQ-9 Billing: Yes ([id number]) Assessment & Plan Assessment & Plan (1) Essential hypertension: Code(s): I10 - Essential (primary) hypertension Category: Medical (2) Screening for prostate cancer: Code(s): Z12.5 - Encounter for screening for malignant neoplasm of prostate Category: Medical (3) COPD (chronic obstructive pulmonary disease): Code(s): J44.9 - Chronic obstructive pulmonary disease, unspecified Category: Medical Qualifiers: COPD type: unspecified COPD Qualified Code(s): J44.9 - Chronic obstructive pulmonary disease, unspecified (4) COPD (chronic obstructive pulmonary disease): Code(s): J44.9 - Chronic obstructive pulmonary disease, unspecified Category: Medical Qualifiers: COPD type: unspecified COPD Qualified Code(s): J44.9 - Chronic obstructive pulmonary disease, unspecified (5) Systolic murmur: Code(s): R01.1 - Cardiac murmur, unspecified Category: Medical Plan . Orders: Orders Comprehensive [place]. Panel Fast Today I10 - Essential (primary) hypertension TSH reflex Free T4 Today I10 - Essential (primary) hypertension UA CC w/rflx Micro + Cult Today I10 - Essential (primary) hypertension CA echo transthoracic complete Today R01.1 - Cardiac murmur, unspecified Complete Blood Count Auto Diff Today I10 - Essential (primary) hypertension Lipid Panel Today I10 - Essential (primary) hypertension Prostate Specific Antigen Scr Today Z12.5 - Encounter for screening for malignant neoplasm of prostate PFT pulmonary function test Today J44.9 - Chronic obstructive pulmonary disease, unspecified Referrals Pulmonology Referral J44.9 - Chronic obstructive pulmonary disease, unspecified
== END 2024-07-02 13:56 | disposition home or self-care (01) ==
PROVIDERS: PCP Nurse Practitioner Primary Care; Visit Provider Nurse Practitioner Family
DX: I10 Essential (primary) hypertension (principal); Z12.5 Encounter for screening for malignant neoplasm of prostate; J44.9 Chronic obstructive pulmonary disease, unspecified; R01.1 Cardiac murmur, unspecified

== ENCOUNTER → 2024-07-02 12:23 | Outpatient (BNVA) | payer MEDICARE, SELFPAY | PROVIDERS: PCP Nurse Practitioner Primary Care; Visit Provider Nurse Practitioner Family | DX: I10 Essential (primary) hypertension (principal); J44.9 Chronic obstructive pulmonary disease, unspecified; R01.1 Cardiac murmur, unspecified; F17.210 Nicotine dependence, cigarettes, uncomplicated | CPT/HCPCS: 96127; 99212 ==

== ENCOUNTER 2024-07-21 15:06 | Outpatient (AMB) | payer MEDICARE, SELFPAY ==
[2024-07-21 15:08] VITALS: BP 140/82; PULSE 74; O2SAT 95; BMI 23.0
--- NOTE | 2024-07-21 15:08 | A.OFFVIS_ITS ---
Vital Signs 07/21/24 15:08 Height 5 ft 11 in Weight 165 lb BMI 23.0 BP 140/82 H Blood Pressure Location Rt brachial Position Sitting Pulse 74 Pulse Source Doppler Pulse Oximetry (%) 95 Oxygen Delivery Method Room Air Intake Visit Reasons: COPD Allergies No Known Allergies Allergy (Verified 07/21/24 15:12) HPI HPI COPD: Details: 74-year-old gentleman, active 50+ pack-year smoker referred for pulmonary evaluation. Patient states that he has been experiencing some dyspnea on exertion, particularly when climbing stairs. He denies cough or sputum production. Currently he is not using any inhaled bronchodilators. Patient denies prior personal or family history of lung disease or exposure to industrial dusts. He has had lung cancer screening CT chest in August of 2023 that showed no worrisome pulmonary nodules. [facility] Medical History (Updated 07/02/24 @ 13:15 by King Peñaloza, [facility]) Essential hypertension Chronic lung disease Nicotine dependence, cigarettes, uncomplicated Hepatitis C Compressed cervical disc Former tobacco use COPD (chronic obstructive pulmonary disease) Surgical History H/O carpal tunnel repair Family History (Updated 07/02/24 @ 12:33 by FERNANDO Vergara) Maternal Grandfather Leukemia Father Hypertension Mother No problems noted. Social History (Updated 07/21/24 @ 15:14 by Ina Warner Rachel) Household Members: None Housing: House Patient Tobacco Use Status: Current everyday Tobacco user Tobacco use type: Cigarette Cigarettes Per Day: 20 Years Smoked: 50 e-Cigarette/Vaping Use: Never Used service: No Current occupational status: employed and retired Cognitive needs: No Hearing needs: No Vision needs: Yes Review of Systems Const Denies daytime sleepiness, Denies excessive sweating, Denies fatigue, Denies fever(s), Denies lethargy, Denies malaise, Denies night sweats, Denies snoring and Denies weight loss Eyes Denies blurry vision and Denies itchy eyes ENT Denies nasal congestion, Denies post nasal drip, Denies sinus pain, Denies sinus pressure and Denies other ( Thrush) Card Denies chest pain, Denies pedal edema, Denies dyspnea, Reports dyspnea on exertion, Denies orthopnea and Denies paroxysmal nocturnal dyspnea Resp Denies cough, Denies hemoptysis, Denies excessive phlegm production, Denies dyspnea, Reports dyspnea on exertion, Denies snoring and Denies wheezing GI Denies abdominal pain and Denies heartburn Musc Denies myalgias, Denies arthralgias and Denies joint swelling Skin/Breast Denies rash Neuro Denies memory loss and Denies seizure-like activity Psych Denies abnormal sleep pattern, Denies anxiety and Denies memory loss Endo Denies excessive sweating, Denies fatigue and Denies heat intolerance Chapo/Lymph Denies easy bruising Aller/Immun Denies itchy eyes, Denies seasonal rhinorrhea and Denies wheezing Physical Exam Vital Signs: Last Vital Signs Pulse 74 07/21/24 15:08 BP 140/82 H 07/21/24 15:08 Pulse Ox 95 07/21/24 15:08 Oxygen Delivery Method Room Air 07/21/24 15:08 BMI result Body Mass Index 23.0 Const General: no acute distress and alert Nutritional Appearance: not obese Orientation/consciousness: Other orientation findings ( oriented) HEENT Head: Yes atraumatic Eyes General: appearance normal, both eyes and all related structures Sclerae: sclerae normal EOM: EOMs intact bilaterally Neck Neck: Yes supple Lymphatic: no lymphadenopathy noted Resp Effort & Inspection: normal respiratory effort and no use of accessory muscles Auscultation: clear to auscultation bilaterally Cardio Rate: regular rate Rhythm: regular rhythm Heart sounds: no gallops, no murmurs and no rubs Skin General skin exam: other ( warm) Extrem General: No clubbing, No cyanosis and No edema Assessment & Plan Assessment & Plan (1) COPD (chronic obstructive pulmonary disease): Code(s): J44.9 - Chronic obstructive pulmonary disease, unspecified Category: Medical Qualifiers: COPD type: unspecified COPD Qualified Code(s): J44.9 - Chronic obstructive pulmonary disease, unspecified Plan: Likely COPD of unclear severity will obtain full PFT. Will start on empiric Anoro and albuterol MDI. (2) Former tobacco use: Code(s): Z87.891 - Personal history of nicotine dependence Category: Social Hx Plan: Results of lung cancer screening CT chest from August of 2023 reviewed, no worrisome nodules at that time. Continue with yearly screening, next in August of 2024. Orders: Orders CT lung screening 09/18/24 Z87.891 - Personal history of nicotine dependence Medications: New umeclidinium-vilanterol 62.5-25 mcg/actuation (Anoro Ellipta) 1 inh inhalation Q24H 1 ea 6RF J44.9 - Chronic obstructive pulmonary disease, unspecified albuterol sulfate 90 mcg/actuation 2 puffs inhalation Q4-6H PRN 1 ea 6RF shortness of breath or wheezing J44.9 - Chronic obstructive pulmonary disease, unspecified Coding Level of Care Code New Pt Level 4 (31015) Diagnoses Chronic obstructive pulmonary disease, unspecified COPD type J44.9 COPD type: unspecified COPD Former tobacco use Z87.891
--- OUTSIDE RECORDS SUMMARY | 2024-07-21 16:04 | XMS_ITS | Continuity of Care Document ---
Author Name [facility] Organization [facility] Care Team Providers Care Registered Veterinary Technician Name Role Phone [facility] Unavailable Unavailable Problems Combined list of problems from Department of Defense and Veterans Affairs facilities. It does not include entries that were removed or entered in error. Problem Status Onset Date Problem Type Date of Resolution Comments Source Chronic hepatitis C without mention of hepatic coma Active Condition [place] [facility] Hyperglycemia Active Condition [place] [facility] Tobacco Use Disorder Active Condition [facility] BRONCHITIS, ACUTE Inactive Condition 08/05/2007 [facility] Counseling on Substance Use and Abuse Inactive Condition 11/25/2007 Apr 25, 2007 Entered By: ANTWON ALEX Comment: breanna roach [facility] Immunizations Combined list of available immunizations from the Department of Defense and Veterans Affairs facilities. 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 2) Encounters from the Department of Defense facilities going back up to 280 months. Location Location Details Encounter Type Encounter Number Reason For Visit Attending Provider ADM Date DC Date Status Disposition Source [facility] Outpatient Encounter [id number] 04/13 [facility] Outpatient [facility]counter [id number] 04/13 [facility] Outpatient [facility]counter [id number] 05/14 [facility] Social History Combined list of available smoking, tobacco, and other social history from Department of Defense and Veterans Affairs facilities. Social History Type Response Date Comment Sourc e Tobacco smoking status NHIS V1-PT DECLINES TOBACCO CESSATION MEDS 11/25/2007 [place] History of tobacco use V1-PT THINKING AB OUT QUIT TOBACCO USE 11/25/2007 [place] History of tobacco use V1-PT DECLINES TO BACCO CESSATION MEDS 10/07/2007 [place] History of tobacco use CURRENT SMOKER 05/26/2007 seenotes [place] History of tobacco use CURRENT SMOKER 04/25/2007 1/2 pack a day [facility]
== END 2024-07-21 15:27 | disposition home or self-care (01) ==
PROVIDERS: Visit Provider Internal Medicine Pulmonary Disease
DX: J44.9 Chronic obstructive pulmonary disease, unspecified (principal); Z87.891 Personal history of nicotine dependence
CPT/HCPCS: 99204

== ENCOUNTER → 2024-07-21 15:06 | Outpatient (BNVA) | payer MEDICARE, SELFPAY | PROVIDERS: Visit Provider Internal Medicine Pulmonary Disease | DX: J44.9 Chronic obstructive pulmonary disease, unspecified (principal); F17.210 Nicotine dependence, cigarettes, uncomplicated | CPT/HCPCS: 99202 ==

== ENCOUNTER → 2024-08-07 08:54 | Outpatient (REF) | payer MEDICARE, SELFPAY ==
--- NOTE | 2024-08-07 09:06 | CA_ITS ---
Transthoracic Echocardiogram Patient (Last, First, Middle): Alli Sanchez, Gender: Male Date of : 1950 Age: 74 Procedure Date: 08/07/2024 Procedure Type: Transthoracic Echocardiogram Location: OP Height: 180.34 cm Weight: 74.84 kg BSA: 1.94 m2 Heart Rate: 70 bpm BP: 124 / 80 mmHg Sustainable Communities Designer: SB Referring MD: King Peñaloza [facility] Straightening Roll Operator: Eduin Nicole MD Symptoms: R01.1 - Cardiac murmur, unspecified Study Quality: Adequate ECG Rhythm: Sinus Conclusions: - 1. Normal LV ejection fraction of 60-65% 2. Mild calcific aortic valve changes noted with normal cardiac valvular Dopplers 3. Upper limits of normal ascending aortic size 4. No gross pericardial effusion Findings Procedure Information The quality of the study was technically difficult. The study quality is limited by lung artifact. Left Ventricle Normal left ventricular size, thickness, and systolic function. The visually estimated ejection fraction is between 60-65%. Spectral Doppler is indicative of an impaired relaxation filling pattern. Right Ventricle Normal right ventricular cavity size and systolic function. Atria Both atria are normal in size. There is no evidence of interatrial shunt. Aortic Valve There is mild calcification of the aortic valve. There is no aortic valve stenosis. There is no aortic valve regurgitation. Mitral Valve There is mild anterior mitral leaflet thickening. There is mild mitral annular calcification. There is trace mitral valve regurgitation. There is no mitral valve stenosis. Pulmonic Valve The pulmonic valve was not well visualized. Tricuspid Valve Likely normal tricuspid valve structure and function. Tricuspid regurgitation envelope is inadequate for calculation of right ventricular systolic pressure. Normal right atrial pressure. Great Vessels The pulmonary artery was not well visualized. There is no dilatation of the ascending aorta measuring 3.50 cm. Venous The inferior vena cava is normal in size and collapses greater than 50% with inspiration. Pericardium/Pleural There is no evidence of pericardial effusion. Prior Study Comparison No prior study available for comparison. Measurements 2D Linear Measurements IVSd: 1.03 0.6-0.9/0.6-1.0 cm LVIDd: 4.22 3.9-5.3/4.2-5.9 cm LVIDd Index: 2.18 2.4-3.2/2.2-3.1 cm/m2 LVIDs: 2.80 2.0-3.6 cm LVPWd: 0.62 0.7-1.1 cm Ao Root: 3.46 2.1-3.5 cm LA Diam: 2.90 2.7-3.8/3.0-4.0 cm LAIDs Index: 1.49 1.5-2.3 cm/m2 LV Mass: 131.66 67-162/88-224 g LV Mass Index: 67.86 43-95/49-115 g/m2 LVOT Diam: 2.00 3.0+(-)1.3 cm 2D Systolic Function EF 4C: 67.60 >55% EF 2C: 65.60 >55% EF BiP: 65.60 >55% Mitral Valve MV Pk E: 1.18 MV PK A: 1.09 MV Decel Time: 179.00 E/A: 1.10 E'Lateral: 8.16 E'Medial: 5.77 E/E' Med: 20.50 E/E' Lat: 14.50 PHT: 52.00 MVA PHT: 4.23 Decel [place]: 6.57 Aortic Valve AoV Pk Seamus: 1.50 AoV Mn Seamus: 1.17 AoV VTI: 0.37 AoV Pk Grad: 9.00 Aov Mn Grad: 6.00 TOYIN Cont.VTI: 2.08 LVOT LVOT Pk [place]amus: 1.11 LVOT Mn [place]: 0.76 LVOT VTI: 0.24 LVOT Pk Grad: 5.00 LVOT Mn Grad: 3.00 LVOT Diam: 2.00 LVOT Area: 3.14 Diastolic Function MV Pk E: 1.18 MV Pk A: 1.09 E/A: 1.10 E'Medial: 5.77 E/E' Med: 20.50 E' Laterial: 8.16 E/E' Lat: 14.50 Right Ventricle TAPSE (mm): 21.30 TVS' Seamus: 14.50 Tricuspid Valve RA Press: 3.00 Great Vessels Aorta Ao Root-2D: 3.46 2.0-3.7 cm Sinus of Valsalva: 3.46 2.0-3.5 cm Ao Asc: 3.50 2.1-3.4 cm Pulmonary Veins Pulm Vein S/D 1.00 Updated in Other Vendor System with Status of Final Eduin Nicole MD electronically signed on 08/08/2024 12:34:35 PM with status of Final
--- OUTSIDE RECORDS SUMMARY | 2024-08-07 09:18 | XMS_ITS | Continuity of Care Document ---
Author Name [facility] Organization [facility] Care Team Providers Care Form Maker Name Role Phone [facility] Unavailable Unavailable Problems Combined list of problems [...] Entered By: ANTWON ALEX Comment: breanna roach [place] [facility] [place] [facility] Immunizations Combined list of available immunizations from the Department of Defense and Veterans Affairs facilities. Immunization Series Date Given Administered By Site Reaction Lot Number CVX Code Drug Virology Teacher Status Comments Source HEP A-HEP B 2007 SHAWN FREY 104 [facility] ed [facility] IELD HEP A-HEP B 2007 LEO ARENAS 104 complet ed [facility] IELD Encounters Combined list of: 1) Encounters from Department of Veterans Affairs facilities going backup to the last 18 months, not all VA inpatient encounters are included; 2) Encounters from the Department of Defense facilities going backup to 280 months. Location Location Details Encounter Type Encounter Number Reason For Visit Attending Provider ADM Date DC Date Status Disposition Source [facility] Out[facility] Encounter [id number] 04/13 [facility] Outpatient [facility]counter [id number] 04/13 [facility] Out[facility] Encounter [id number] 05/14 [facility] Social History Combined list of available smoking, tobacco, and other social history from Department of Defense and Veterans Affairs facilities. Social History Type Response Date Comment Sour e Tobacco smoking status NHIS V1-PT DECLINES TOBACCO CESSATION MEDS 11/25/2007 [place] History of tobacco use V1-PT THINKING AB OUT QUIT TOBACCO USE 11/25/2007 [place] History of tobacco use V1-PT DECLINES TO BACCO CESSATION MEDS 10/07/2007 [place] History of tobacco use CURRENT SMOKER 05/26/2007 seenotes [place] History of tobacco use CURRENT SMOKER 04/25/2007 1/2 pack a day [place]
--- NOTE | 2024-08-07 09:56 | PFT_ITS ---
Indication COPD Spirometry [FEV1 to FVC 40%; FEV1 0.89 L; FVC 2.25 L. this is a significant response to bronchodilators noted] Lung Volumes [Total lung capacity 87% predicted; residual volume 139% predicted] Diffusion Capacity [DLCO 50% predicted] Comparisons [none] Interpretation [There is an obstructive ventilatory defect consistent with very severe COPD. There is a significant response to bronchodilators noted. Significant air trapping due to the COPD. There is also a moderate diffusion impairment due to the COPD. Clinical correlation warranted.] MTDD
== END ==
LOC: HO.CARD 08:54
PROVIDERS: PCP Nurse Practitioner Family; Visit Provider Nurse Practitioner Family
DX: J44.9 Chronic obstructive pulmonary disease, unspecified (principal); R01.1 Cardiac murmur, unspecified
CPT/HCPCS: 93306; 99212

== ENCOUNTER → 2024-08-07 09:06 | Outpatient (BNV) | payer MEDICARE, SELFPAY | PROVIDERS: PCP Nurse Practitioner Family; Visit Provider Internal Medicine Cardiovascular Disease | DX: I35.8 Other nonrheumatic aortic valve disorders (principal); I34.81 Nonrheumatic mitral (valve) annulus calcification | CPT/HCPCS: 93306 ==

== ENCOUNTER 2024-08-07 10:30 | Outpatient (AMB) | payer MEDICARE, SELFPAY ==
[2024-08-07 10:24] VITALS: BP 128/72; PULSE 61; O2SAT 97; BMI 22.4
--- NOTE | 2024-08-07 10:24 | MHC.OFFVIS ---
Vital Signs 08/07/24 10:24 Height 5 ft 11 in Weight 160 lb 9 oz BMI 22.4 BP 128/72 Blood Pressure Location Rt brachial Position Sitting Pulse 61 Pulse Source Doppler Pulse Oximetry (%) 97 Oxygen Delivery Method Room Air Intake Visit Reasons: COPD/Same Day PFT Allergies No Known Allergies Allergy (Verified 07/21/24 15:12) HPI HPI COPD/Same Day PFT: Details: 74-year-old gentleman, active 50+ pack-year smoker now followed for severe to very severe COPD. After the last office visit patient was not able to afford Anoro and continued on albuterol MDI with suboptimal control of his symptoms. He did complete his pulmonary function test. He denies acute exacerbations. [facility] Medical History (Updated 07/02/24 @ 13:15 by King Peñaloza [facility]) Essential hypertension Chronic lung disease Nicotine dependence, cigarettes, uncomplicated Hepatitis C Compressed cervical disc Former tobacco use COPD (chronic obstructive pulmonary disease) Surgical History H/O carpal tunnel repair Family History (Updated 07/02/24 @ 12:33 by FERNANDO Vergara) Maternal Grandfather Leukemia Father Hypertension Mother No problems noted. Social History Household Members: None Housing: House Patient Tobacco Use Status: Current everyday Tobacco user Tobacco use type: Cigarette Cigarettes Per Day: 20 Years Smoked: 50 e-Cigarette/Vaping Use: Never Used service: No Current occupational status: employed and retired Cognitive needs: No Hearing needs: No Vision needs: Yes Review of Systems Const Denies daytime sleepiness, Denies excessive sweating, Denies fatigue, Denies fever(s), Denies lethargy, Denies malaise, Denies night sweats, Denies snoring and Denies weight loss Eyes Denies blurry vision and Denies itchy eyes ENT Denies nasal congestion, Denies post nasal drip, Denies sinus pain, Denies sinus pressure and Denies other ( Thrush) Card Denies chest pain, Denies pedal edema, Denies dyspnea, Denies orthopnea and Denies paroxysmal nocturnal dyspnea Resp Denies cough, Denies hemoptysis, Denies excessive phlegm production, Denies dyspnea, Denies snoring and Denies wheezing GI Denies abdominal pain and Denies heartburn Musc Denies myalgias, Denies arthralgias and Denies joint swelling Skin/Breast Denies rash Neuro Denies memory loss and Denies seizure-like activity Psych Denies abnormal sleep pattern, Denies anxiety and Denies memory loss Endo Denies excessive sweating, Denies fatigue and Denies heat intolerance Chapo/Lymph Denies easy bruising Aller/Immun Denies itchy eyes, Denies seasonal rhinorrhea and Denies wheezing Physical Exam Vital Signs: Last Vital Signs Pulse 61 08/07/24 10:24 BP 128/72 08/07/24 10:24 Pulse Ox 97 08/07/24 10:24 Oxygen Delivery Method Room Air 08/07/24 10:24 BMI result Body Mass Index 22.4 Const General: no acute distress and alert Nutritional Appearance: not obese Orientation/consciousness: Other orientation findings ( oriented) HEENT Head: Yes atraumatic Eyes General: appearance normal, both eyes and all related structures Sclerae: sclerae normal EOM: EOMs intact bilaterally Neck Neck: Yes supple Lymphatic: no lymphadenopathy noted Resp Effort & Inspection: normal respiratory effort and no use of accessory muscles Auscultation: clear to auscultation bilaterally Cardio Rate: regular rate Rhythm: regular rhythm Heart sounds: no gallops, no murmurs and no rubs Skin General skin exam: other ( warm) Extrem General: No clubbing, No cyanosis and No edema Assessment & Plan Assessment & Plan (1) COPD (chronic obstructive pulmonary disease): Code(s): J44.9 - Chronic obstructive pulmonary disease, unspecified Category: Medical Qualifiers: COPD type: unspecified COPD Qualified Code(s): J44.9 - Chronic obstructive pulmonary disease, unspecified Plan: Suboptimal control as patient was not able to afford Anoro. Switch to AirDuo. Pulmonary function test reviewed, underlying severe to very severe COPD. (2) Former tobacco use: Code(s): Z87.891 - Personal history of nicotine dependence Category: Medical Plan: No worrisome nodules on the prior scan, yearly screening CT chest is pending for August of 2024. Medications: New fluticasone propion-salmeterol 232-14 mcg/actuation (AirDuo RespiClick) 1 inh inhalation BID 1 ea 6RF ipratropium-albuterol 0.5 mg-3 mg(2.5 mg base)/3 mL 3 mL inhalation Q4-6H PRN 180 mL 6RF wheezing Coding Level of Care Code Est Pt Level 4 (28568) Diagnoses Chronic obstructive pulmonary disease, unspecified COPD type J44.9 COPD type: unspecified COPD Former tobacco use Z87.891
--- OUTSIDE RECORDS SUMMARY | 2024-08-07 11:20 | XMS_ITS | Continuity of Care Document ---
Author Name [facility] Organization [facility] Care Team Providers Care Office Technology Instructor Name Role Phone [facility] Unavailable Unavailable Problems Combined list of problems [...] Entered By: ANTWON ALEX Comment: breanna roach [place] [facility] [place] [facility] Immunizations Combined list of available immunizations from the Department of Defense and Veterans Affairs facilities. Immunization Series Date Given Administered By Site Reaction Lot Number CVX Code Drug Produce Sorter Status Comments Source HEP A-HEP B 2007 SHAW[place] FREY 104 [facility] ed [facility] IELD HEP A-HEP B 2007 LEO ARENAS 104 complet ed [facility] IELD Encounters Combined list of: 1) Encounters [...] [facility] En[facility] [id number] 04[facility]13 [facility] Encounter [id number] 04/13 [facility] Out[facility] Encounter [id number] 05/14 [place] [facility] Social History Combined list of available smoking, tobacco, and other social history from Department of Defense and Veterans Affairs facilities. Social History Type Response Date Comment Sour e Tobacco smoking status NHIS V1-PT DECLINES TOBACCO CESSATION MEDS 11/25/2007 [place] History of tobacco use V1-PT THINKING AB OUT QUIT TOBACCO USE 11/25/2007 [place] History of tobacco use V1-PT DECLINES TO BACCO CESSATION MEDS 10/07/2007 [place] History of tobacco use CURRENT SMOKER 05/26/2007 seenotes [place] History of tobacco use CURRENT SMOKER 04/25/2007 1/2 pack a day [place]
== END 2024-08-07 10:38 | disposition home or self-care (01) ==
LOC: HO.HPS 10:30
PROVIDERS: PCP Nurse Practitioner Family; Visit Provider Internal Medicine Pulmonary Disease
DX: J44.9 Chronic obstructive pulmonary disease, unspecified (principal); Z87.891 Personal history of nicotine dependence
CPT/HCPCS: 94060; 94727; 94729; 99214

== ENCOUNTER 2024-09-18 13:50 | Outpatient (AMB) | payer MEDICARE, SELFPAY ==
[2024-09-18 13:58] VITALS: BP 120/62; PULSE 77; O2SAT 95; BMI 21.9
--- NOTE | 2024-09-18 13:58 | MHC.OFFVIS ---
Vital Signs 09/18/24 13:58 Height 5 ft 11 in Weight 157 lb BMI 21.9 BP 120/62 Blood Pressure Location Rt brachial Position Sitting Pulse 77 Pulse Source Doppler Pulse Oximetry (%) 95 Oxygen Delivery Method Room Air Intake Visit Reasons: COPD Allergies No Known Allergies Allergy (Verified 07/21/24 15:12) HPI HPI COPD: Details: 74-year-old gentleman, active 50+ pack-year smoker now followed for severe to very severe COPD. He continues on AirDuo, duo nebs, and albuterol MDI with good control of his symptoms. He denies recent exacerbations. [facility] Medical History (Updated 08/11/24 @ 11:57 by Mandi Beal PA-C) Nicotine dependence, cigarettes, uncomplicated Essential hypertension Chronic lung disease Hepatitis C Compressed cervical disc COPD (chronic obstructive pulmonary disease) Surgical History H/O carpal tunnel repair Family History (Updated 07/02/24 @ 12:33 by FERNANDO Vergara) Maternal Grandfather Leukemia Father Hypertension Mother No problems noted. Social History Household Members: None Housing: House Patient Tobacco Use Status: Current everyday Tobacco user Tobacco use type: Cigarette Cigarettes Per Day: 20 Years Smoked: 50 e-Cigarette/Vaping Use: Never Used service: No Current occupational status: employed and retired Cognitive needs: No Hearing needs: No Vision needs: Yes Review of Systems Const Denies daytime sleepiness, Denies excessive sweating, Denies fatigue, Denies fever(s), Denies lethargy, Denies malaise, Denies night sweats, Denies snoring and Denies weight loss Eyes Denies blurry vision and Denies itchy eyes ENT Denies nasal congestion, Denies post nasal drip, Denies sinus pain, Denies sinus pressure and Denies other ( Thrush) Card Denies chest pain, Denies pedal edema, Denies dyspnea, Denies orthopnea and Denies paroxysmal nocturnal dyspnea Resp Denies cough, Denies hemoptysis, Denies excessive phlegm production, Denies dyspnea, Denies snoring and Denies wheezing GI Denies abdominal pain and Denies heartburn Musc Denies myalgias, Denies arthralgias and Denies joint swelling Skin/Breast Denies rash Neuro Denies memory loss and Denies seizure-like activity Psych Denies abnormal sleep pattern, Denies anxiety and Denies memory loss Endo Denies excessive sweating, Denies fatigue and Denies heat intolerance Chapo/Lymph Denies easy bruising Aller/Immun Denies itchy eyes, Denies seasonal rhinorrhea and Denies wheezing Physical Exam Vital Signs: Last Vital Signs Pulse 77 09/18/24 13:58 BP 120/62 09/18/24 13:58 Pulse Ox 95 09/18/24 13:58 Oxygen Delivery Method Room Air 09/18/24 13:58 BMI result Body Mass Index 21.9 Const General: no acute distress and alert Nutritional Appearance: not obese Orientation/consciousness: Other orientation findings ( oriented) HEENT Head: Yes atraumatic Eyes General: appearance normal, both eyes and all related structures Sclerae: sclerae normal EOM: EOMs intact bilaterally Neck Neck: Yes supple Lymphatic: no lymphadenopathy noted Resp Effort & Inspection: normal respiratory effort and no use of accessory muscles Auscultation: clear to auscultation bilaterally Cardio Rate: regular rate Rhythm: regular rhythm Heart sounds: no gallops, no murmurs and no rubs Skin General skin exam: other ( warm) Extrem General: No clubbing, No cyanosis and No edema Assessment & Plan Assessment & Plan (1) COPD (chronic obstructive pulmonary disease): Code(s): J44.9 - Chronic obstructive pulmonary disease, unspecified Category: Medical Qualifiers: COPD type: unspecified COPD Qualified Code(s): J44.9 - Chronic obstructive pulmonary disease, unspecified Plan: Well controlled on current regimen of AirDuo, duo nebs, and albuterol MDI. Continue current regimen. (2) Nicotine dependence, cigarettes, uncomplicated: Comment: (onset 19yo, 1ppd x 50+yrs - 50pyh) Code(s): F17.210 - Nicotine dependence, cigarettes, uncomplicated Category: Medical Plan: Lung cancer screening CT chest is pending. Coding Level of Care Code Est Pt Level 4 (32590) Diagnoses Chronic obstructive pulmonary disease, unspecified COPD type J44.9 COPD type: unspecified COPD Nicotine dependence, cigarettes, uncomplicated F17.210
== END 2024-09-18 14:13 | disposition home or self-care (01) ==
LOC: HO.HPS 13:51
PROVIDERS: PCP Nurse Practitioner Family; Visit Provider Internal Medicine Pulmonary Disease
DX: J44.9 Chronic obstructive pulmonary disease, unspecified (principal); F17.210 Nicotine dependence, cigarettes, uncomplicated
CPT/HCPCS: 99214

== ENCOUNTER → 2024-09-18 13:50 | Outpatient (BNVA) | payer MEDICARE, SELFPAY | PROVIDERS: PCP Nurse Practitioner Family; Visit Provider Internal Medicine Pulmonary Disease | DX: J44.9 Chronic obstructive pulmonary disease, unspecified (principal); F17.210 Nicotine dependence, cigarettes, uncomplicated | CPT/HCPCS: 99212 ==

== ENCOUNTER 2025-01-19 10:58 | Outpatient (REF) | payer MEDICARE, SELFPAY ==
[2025-01-19 13:11] LABS: MANUAL DIFF FLAG NO
[2025-01-19 13:30] LABS: Hematocrit 42.5 % (42.0-52.0); Hemoglobin 14.4 g/dl (14.0-18.0); Imm Gran Abs Auto 0.03 X10*3/uL (0.00-0.03); Imm Gran Pct Auto 0.5 % (0.0-0.4); Lymphocytes Absolute Auto 1.4 X10*3/uL (1.2-4.9); Mean Corpuscular HGB Conc 33.9 g/dl (31.0-36.0); Mean Corpuscular Hemoglobin 30.8 pg (27.0-33.0); Mean Corpuscular Volume 91.0 fL (80.0-98.0); NRBC Abs Auto 0.000 X10*3/uL (0.0-0.012); NRBC Pct Auto 0.0 /100WBC (0.0-0.2); Platelet Count 252 X10*3/uL (160-400); Red Blood Count 4.67 X10*6/uL (4.60-5.80); White Blood Count 6.4 X10*3/uL (4.8-10.8)
[2025-01-19 13:33] LABS: Appearance Urine Clear; Glucose Urine UA Negative (Negative); PH 7.5 (5.0-9.0); Specific Gravity - Urine <= 1.005 (1.005-1.025)
[2025-01-19 13:43] LABS: Alanine Aminotransferase 19 U/L (0-40); Albumin Level 4.5 g/dL (3.5-5.0); Alkaline Phosphatase 71 U/L (39-117); Anion Gap 11 (12-20); Aspartate Amino Transferase 22 U/L (5-37); Blood Urea Nitrogen 13 mg/dL (9-16); Calcium 9.4 mg/dL (8.4-10.2); Carbon Dioxide 31 mmol/L (22-29); Chloride 104 mmol/L (96-108); Cholesterol 132 mg/dL (<200); Estimated Glomerular Filt Rate > 60; HDL Cholesterol 59 mg/dL (>40); Potassium 4.0 mmol/L (3.3-5.1); Sodium 142 mmol/L (135-145); Total Protein 6.7 g/dL (6.5-8.0); Triglycerides 41 mg/dL (<150)
== END 2025-01-19 10:59 | disposition home or self-care (01) ==
LOC: HO.HMGCLDS 10:58
PROVIDERS: PCP Nurse Practitioner Family; Visit Provider Nurse Practitioner Family
DX: Z00.00 Encounter for general adult medical examination without abnormal findings (principal); I65.29 Occlusion and stenosis of unspecified carotid artery; F17.210 Nicotine dependence, cigarettes, uncomplicated; Z13.30 Encounter for screening examination for mental health and behavioral disorders, unspecified; Z12.5 Encounter for screening for malignant neoplasm of prostate; I10 Essential (primary) hypertension
CPT/HCPCS: 36415; 80053; 80061; 81003; 84153; 84443; 85025; 96127; 99397

== ENCOUNTER 2025-01-19 10:58 | Outpatient (AMB) | payer MEDICARE, SELFPAY ==
--- OUTSIDE RECORDS SUMMARY | 2007-11-25 06:30 | XMS_ITS | Continuity of Care Document ---
Author Name [facility] Organization [facility] Care Team Providers Care [employer] Diver Name Role Phone [facility] Unavailable Unavailable Problems Combined list of problems from Department of Defense and Veterans Affairs facilities. It does not include entries that were removed or entered in error. Problem Status Onset Date Problem Type Date of Resolution Comments Source Chronic hepatitis C without mention of hepatic coma Active Condition [place] Hyperglycemia Active Condition [place] Tobacco Use Disorder Active Condition [facility] [place] [facility] BRONCHITIS, ACUTE Inactive Condition 08/05/2007 [facility] [place] [facility] Counseling on Substance Use and Abuse Inactive Condition 11/25/2007 Apr 25, 2007 Entered By: ANTWON ALEX Comment: breanna roach [facility] Immunizations Combined list of available immunizations from the Department of Defense and Veterans Affairs facilities. Immunization Series Date Given Administered By Site Reaction Lot Number CVX Code Drug Housing Liaison Status Comments Source HEP A-HEP B 2007 SHAWN FREY 104 complet ed [facility] IELD HEP A-HEP B 2007 LEO ARENAS 104 complet ed [facility] IELD Social History Combined list of available smoking, tobacco, and other social history from Department of Defense and Veterans Affairs facilities. Social History Type Response Date Comment Sourc e Tobacco smoking status NHIS V1-PT DECLINES TOBACCO CESSATION MEDS 11/25/2007 [facility] History of tobacco use V1-PT THINKING AB OUT QUIT TOBACCO USE 11/25/2007 [facility] History of tobacco use V1-PT DECLINES TO BACCO CESSATION MEDS 10/07/2007 [facility] History of tobacco use CURRENT SMOKER 05/26/2007 seenotes [facility] History of tobacco use CURRENT SMOKER 04/25/2007 1/2 pack a day [facility]
--- NOTE | 2025-01-19 11:05 | MHC.PC.OV ---
Vital Signs 01/19/25 11:06 Height 5 ft 11 in Weight 152 lb BMI 21.2 BP 132/68 Blood Pressure Location Lt brachial Position Sitting Respiration 16 Pulse 74 Pulse Source Pulse Oximeter Temp 98.3 F Temp Source Oral Pulse Oximetry (%) 92 Oxygen Delivery Method Room Air Intake Visit Reasons: Annual PE- see comments Replenishment Analyst Required: No Accompanied by: Self / Same As Patient Allergies No Known Allergies Allergy (Verified 01/19/25 11:08) Medication List - Last Reconciled 01/19/25 by LETICIA KimP- albuterol sulfate 90 mcg/actuation 2 puffs inhalation Q4-6H PRN amlodipine 5 mg PO DAILY ascorbic acid (vitamin C) 500 mg PO DAILY atorvastatin 20 mg PO BEDTIME cholecalciferol (vitamin D3) 25 mcg PO DAILY fluticasone propion-salmeterol 232-14 mcg/actuation (AirDuo RespiClick) 1 inh inhalation BID ipratropium-albuterol 0.5 mg-3 mg(2.5 mg base)/3 mL 3 mL inhalation Q4-6H PRN lisinopril 10 mg PO DAILY Tobacco use date assessed: 01/19/25 Fall risk assessment: No Falls in past year Last assessed Fall Risk: 01/19/25 Dental Screening Dental Screen Date: 01/19/25 Did you have a dental visit in the last 12 months?: No Did you have a dental problem in the last 6 months where you did not have access to dental care?: No Was dental information given to patient?: Patient declined HPI Annual PE- see comments HPI Details History of Present Illness The patient is a 74-year-old male presenting for a physical examination and preventative care follow-up. He is a chronic smoker, having smoked heavily for most of his life, which has necessitated annual low-dose CT scans for lung cancer screening. He is currently due for his next CT scan and has a follow-up appointment with his contracting manager in February. The patient denies any chest pain or abdominal pain, and reports no blood in stool, constipation, or diarrhea. He denies any suicidal or homicidal ideation and reports doing quite well overall. He experiences dyspnea on exertion but denies any resting shortness of breath. A faint carotid bruit was noted on the right side during the examination, prompting a recommendation for a bilateral carotid ultrasound due to his history of chronic smoking. Health Maintenance - Annual low-dose CT scan for lung cancer screening - Colon cancer screening recommended at age 77 Social History - Tobacco use: Heavy smoker for most of his life Review of Systems - Respiratory: Reports dyspnea on exertion. Denies resting dyspnea. - Cardiovascular: Denies chest pain. - Gastrointestinal: Denies abdominal pain, blood in stool, constipation, or diarrhea. - Psychiatric: Denies suicidal or homicidal ideation. Physical Exam General: Cooperative, healthy appearing, comfortable, no acute distress and well developed Orientation: Patient oriented x3 Limitations: No limitations Head: Normal to inspection Ears: Hearing grossly normal bilaterally Nose: Normal external nose present Face and sinus: Normal facial exam Eyes: Appearance normal, both eyes and all related structures Neck: Normal visual inspection and Yes full ROM Respiratory: Normal respiratory effort and able to speak in complete sentences. Clear to auscultation bilaterally Cardiovascular: Regular rate and rhythm. Normal S1 and S2. Faint carotid bruit noted to right side GI: Normal to inspection. Soft to palpation and nontender : testicles without masses/lesions and no hernias appreciated Skin: No rashes or lesions noted Neuro: Patient oriented x3 Extremities: Normal to inspection Results Plan The patient will continue with annual low-dose CT scans for lung cancer screening due to his history of chronic smoking. A bilateral carotid ultrasound is recommended to evaluate the faint carotid bruit noted on the right side during the examination. The patient is advised to follow up with his contracting manager in February as scheduled. Discussion Notes I discussed with the patient the importance of continuing annual low-dose CT scans for lung cancer screening given his smoking history. We also talked about the need for a bilateral carotid ultrasound due to the faint bruit detected on the right side. The patient was reminded to keep his follow-up appointment with the contracting manager in February. Patient Instructions - Continue with annual low-dose CT scans for lung cancer screening. - Schedule and complete a bilateral carotid ultrasound. - Follow up with your contracting manager in February. [facility] Medical History Nicotine dependence, cigarettes, uncomplicated Essential hypertension Chronic lung disease Hepatitis C Compressed cervical disc COPD (chronic obstructive pulmonary disease) Surgical History H/O carpal tunnel repair Family History Maternal Grandfather Leukemia Father Hypertension Mother No problems noted. Social History Household Members: None Housing: House Patient Tobacco Use Status: Current everyday Tobacco user Tobacco use type: Cigarette Cigarettes Per Day: 20 Years Smoked: 50 e-Cigarette/Vaping Use: Never Used service: No Current occupational status: employed and retired Cognitive needs: No Hearing needs: No Vision needs: Yes Questionnaire PHQ-9 Over the last 2 weeks, how often have you been bothered by any of the following problems? 1. Little interest or pleasure in doing things: not at all 2. Feeling down, depressed, or hopeless: not at all 3. Trouble falling or staying asleep, or sleeping too much: not at all 4. Feeling tired or having little energy: not at all 5. Poor appetite or overeating: not at all 6. Feeling bad about yourself - or that you are a failure or have let yourself or your family down: not at all 7. Trouble concentrating on things, such as reading the newspaper or watching television: not at all 8. Moving or speaking so slowly that other people could have noticed. Or the opposite - being so fidgety or restless that you have been moving around a lot more than usual: not at all 9. Thoughts that you would be better off or of hurting yourself in some way: not at all Total score: 0 Depression Screening Interpretation: Negative Depression Screening Done: Yes 82422 - PHQ-9 Billing: Yes Source: Developed by Drs. Acosta Lassiter, Eleanor Alfaro, Kelvin Islas and colleagues, with an educational ted from [employer]. Thrive Questionnaire Date Thrive assessed: 07/02/24 I am a: Patient What is your living situation today?: I have a steady place to live Within the past 12 months, did the food you bought not last and you didn't have the money to get more?: Never true Within the past 12 months, did you worry whether your food would run out before you got money to buy more?: Never true Do you have trouble paying for medicines?: Yes Do you have trouble getting transportation to medical appointments?: No Do you have trouble paying your heating and electricity bill?: No Do you have trouble taking care of your child, family member or friend?: No Do you have trouble with day-to-day activities such as bathing, preparing meals, shopping, managing finances, etc.?: No Are you currently unemployed and looking for a job?: No Are you interested in more education?: No Please select the resources that you would like help with: None Currently or been in a relationship where the following occur: I choose not to answer THRIVE Score: 0 ABEBE-7 AMB Questionnaire ABEBE-7 Date ABEBE - 7 assessed: 07/02/24 Feeling nervous, anxious, or on edge: 0 = Not at all Not being able to stop or control worryin = Not at all Worrying too much about different things: 0 = Not at all Trouble relaxin = Not at all Being so restless that it is hard to sit still: 0 = Not at all Becoming easily annoyed or irritable: 0 = Not at all Feeling afraid as if something awful might happen: 0 = Not at all Total ABEBE-7 score (0-4 normal; 5-9 mild; 10-14 moderate; 15-21 severe): 0 Source: Developed by Drs. Acosta Lassiter, Eleanor Alfaro, Kelvin Islas and colleagues, with an educational ted from [employer]. ABEBE-7 Assessment Billing ABEBE-7 Assessment Tool: ABEBE-7 Assessment 26927 Physical exam (Primary Care) Vital Signs: Last Vital Signs Temp 98.3 F 01/19/25 11:06 Pulse 74 01/19/25 11:06 Resp 16 01/19/25 11:06 BP 132/68 01/19/25 11:06 Pulse Ox 92 01/19/25 11:06 Oxygen Delivery Method Room Air 01/19/25 11:06 BMI result Body Mass Index 21.2 Tobacco/Smoking Status: Tobacco use Status Tobacco use date assessed 01/19/25 01/19/25 11:11 Patient Tobacco Use Status Current everyday Tobacco 01/19/25 11:11 Tobacco use type Cigarette 01/19/25 11:11 e-Cigarette/Vaping Use Never Used 01/19/25 11:11 PHQ-9: PHQ-9 Score PHQ-9: Total score 0 01/19/25 11:11 Depression Screening Interpretation: Negative Thrive Assessment: Date of Thrive Assessment Date Thrive assessed 07/02/24 01/19/25 11:11 Currently or been in a relationship where the following occur: I choose not to answer Coding Level of Care Code Est Pt Prev Care >65y(47568) Diagnoses Physical exam Z00.00 Carotid stenosis I65.29 Additional Codes ABEBE-7 Assessment Billing - ABEBE-7 Assessment Tool: ABEBE-7 Assessment 96299 ([id number]) PHQ-9 - 74904 - PHQ-9 Billing: Yes ([id number]) Assessment & Plan Assessment & Plan (1) Physical exam: Code(s): Z00.00 - Encounter for general adult medical examination without abnormal findings Category: Medical (2) Carotid stenosis: Code(s): I65.29 - Occlusion and stenosis of unspecified carotid artery Category: Medical Plan . Orders: Orders US carotid duplex BI Today I65.29 - Occlusion and stenosis of unspecified carotid artery
[2025-01-19 11:06] VITALS: BP 132/68; PULSE 74; RESP 16; TEMP 36.8; O2SAT 92; BMI 21.2
== END 2025-01-19 11:43 | disposition home or self-care (01) ==
LOC: HO.HMCC 10:59
PROVIDERS: PCP Nurse Practitioner Family; Visit Provider Nurse Practitioner Family
DX: Z00.00 Encounter for general adult medical examination without abnormal findings (principal); I65.29 Occlusion and stenosis of unspecified carotid artery

== ENCOUNTER 2025-03-04 13:51 | Outpatient (REF) | payer MEDICARE, SELFPAY ==
--- NOTE | ~2025-03-04 | US_ITS ---
EXAMINATION: US EXTRACRANIAL CAROTID DUPLEX, BILATERAL CLINICAL INFORMATION: I65.29 - Occlusion and stenosis of unspecified carotid artery, tobacco use, hypertension COMPARISON: None available. TECHNIQUE: Real-time ultrasound and Doppler techniques (integrating B-mode 2-D vascular images, Doppler spectral analysis and color-flow Doppler imaging) were utilized to interrogate the extracranial carotid arteries, the vertebral arteries and proximal subclavian arteries bilaterally. The degree of stenosis is determined by criteria similar to NASCET. FINDINGS: Right Side: 1. There is moderate atherosclerotic plaque seen in the bifurcation/proximal ICA region. 2. The common carotid artery PSV proximally is 89 cm/s and distally 56 cm/s. 3. The proximal internal carotid artery velocities are 327 cm/s systolic and 115 cm/s diastolic. 4. The proximal external carotid artery PSV is 84 cm/s. 5. The vertebral artery shows antegrade flow. 6. The subclavian artery waveforms are biphasic. ICA/CCA ratio = 3.7 Distal ICA was not visualized by the technologist. Left Side: 1. There is mild atherosclerotic plaque seen in the bifurcation/proximal ICA region. 2. The common carotid artery PSV proximally is 93 cm/s and distally 57 cm/s. 3. The proximal internal carotid artery velocities are 67 cm/s systolic and 24 cm/s diastolic. 4. The proximal external carotid artery PSV is 141 cm/s. 5. The vertebral artery shows antegrade flow. 6. The subclavian artery waveforms are biphasic. ICA/CCA ratio = 0.7 US/US carotid duplex BI IMPRESSION: 1. RIGHT: There is a hemodynamically significant stenosis in the proximal ICA measuring 50-79%. The distal ICA was not visualized by the chemistry technologist and its patency cannot be confirmed. Consider CTA of the neck. 2. LEFT: There is no hemodynamically significant stenosis. Electronically signed by: Kirby Valera MD 03/04/2025 05:11 PM EDT
== END 2025-03-04 13:52 | disposition home or self-care (01) ==
LOC: HO.HMGCX 13:51
PROVIDERS: PCP Nurse Practitioner Family; Visit Provider Nurse Practitioner Family
DX: I65.23 Occlusion and stenosis of bilateral carotid arteries (principal)
CPT/HCPCS: 93880

== ENCOUNTER → 2025-03-04 14:03 | Outpatient (BNV) | payer MEDICARE, SELFPAY | PROVIDERS: PCP Nurse Practitioner Family; Visit Provider Radiology Diagnostic Radiology | DX: I65.29 Occlusion and stenosis of unspecified carotid artery (principal) | CPT/HCPCS: 93880 ==